=== PATIENT | female | born 1945 | race Caucasian/White ===

== ENCOUNTER 2018-01-29 23:49 | Emergency (ER) | payer OTHER, MEDICARE ==
--- OUTSIDE RECORDS SUMMARY | 2018-01-29 23:50 | XMS REPORT | Clinical Summary ---
:1945 Author Organization [facility] Address [address] [place] [address] Care Team Providers Name Role Phone Aramis Vivas MD Primary Care Provider Allergies Active Allergy Reactions Severity Noted Date Comments Corticosteroids (Glucocorticoids) 05/03/2016 Meperidine 05/03/2016 Morphine 05/03/2016 Quinolones 05/03/2016 Sulfamethoxazole 05/03/2016 Tramadol 05/03/2016 Current Medications Prescription Sig. Disp. Refills Start Date End Date Status HYDROcodone-acetaminophen 05/02/2016 Active (NORCO) 7.5-325 mg per tablet metoprolol tartrate (LOPRESSOR) TK 1 T PO D. 1 03/20/2016 Active 25 MG tablet Active Problems Not on file Family History Medical History Relation Name Comments Aortic aneurysm Father COPD Mother Relation Name Status Comments Father Mother Social History Tobacco Use Types Packs/Day Years Used Date Former Smoker Alcohol Use Drinks/Week oz/Week Comments No Sex Assigned at Date Recorded Not on file Last Filed Vital Signs Not on file Plan of Treatment Health Maintenance Due Date Last Done Comments COLONOSCOPY 1997 MAMMOGRAM 1997 SHINGRIX VACCINE (#1) 1997 ZOSTER VACCINE 2007 PNEUMOCOCCAL POLYSACCHARIDE VACCINE AGE 65 AND OVER 2012 PNEUMOCOCCAL-13 2012 INFLUENZA VACCINE 05/07/2018 Results Not on fileafter 01/28/2017 Insurance Payer Benefit Plan / Group Subscriber ID Type Phone Address MEDICARE MEDICARE PART A AND B xxxxxxxxxx Medicare [place], [place] AARP AARP SUPPLEMENT xxxxxxxxxxx Commercial Home: [address] [phone] [address] [id number] [address] [place] [address]
--- NOTE | 2018-01-30 01:28 | EDPHYS ---
Physician Documentation [facility] Name: Pooja Lawrence Age: 72 yrs Sex: Female : 1945 Arrival Date: 01/29/2018 Time: 23:52 Bed 14 Private MD: Aramis Vivas T ED Physician Mikal Govea HPI: 01/30 00:15 This 72 yrs old Female presents to ER via Ambulatory with complaints of Neck jr8 Injury. 00:15 The patient or guardian complains of pain. The symptoms are located at the C4, C5 and jr8 C6. Onset: The symptoms/episode began/occurred acutely, today. Context: The problem was sustained at home, The neck injury/problem resulted from a fall. Associated signs and symptoms: The patient has no apparent associated signs or symptoms. The pain does not radiate. Modifying factors: The symptoms are alleviated by nothing. the symptoms are aggravated by movement. Severity of symptoms: At their worst the symptoms were mild, in the emergency department the symptoms are unchanged. The patient has not experienced similar symptoms in the past. The patient has not recently seen a physician. Patient stated that she miss stepped and fell backwards hitting neck on side of couch. Stated that since then has had some pain to back of neck. History of cervical spine surgery for fracture in past. Wanted to make sure she did not hurt it again . Historical: - Allergies: 00:18 Ciprofloxacin (Respiratory distress); bs1 00:18 Demerol (Upset stomach); bs1 00:18 Morphine (Upset stomach); bs1 00:18 Sulfa (Sulfonamide Antibiotics) (Respiratory distress); bs1 00:18 Ultram; bs1 - Home Meds: 00:18 [place] Oral [Active]; Lipitor Oral [Active]; bs1 - PMHx: 00:18 Hypertension; mitral valve prolapse; scoliosis; bs1 - PSHx: 00:18 ; Hysterectomy; Appendectomy; Tonsillectomy; nerve damage left arm; back sx; bs1 - Immunization history:: Adult Immunizations up to date. - Social history:: Smoking status: Patient/guardian denies using tobacco. ROS: 00:15 Eyes: Negative for injury, pain, redness, and discharge, ENT: Negative for injury, jr8 pain, and discharge, Cardiovascular: Negative for chest pain, palpitations, and edema, Respiratory: Negative for shortness of breath, cough, wheezing, and pleuritic chest pain, Abdomen/GI: Negative for abdominal pain, nausea, vomiting, diarrhea, and constipation, Back: Negative for injury and pain, MS/Extremity: Negative for injury and deformity, Skin: Negative for injury, rash, and discoloration, Neuro: Negative for headache, weakness, numbness, tingling, and seizure. 00:15 Neck: Positive for pain with movement, pain at rest, tenderness, bony tenderness. Exam: 00:15 Eyes: Pupils equal round and reactive to light, extra-ocular motions intact. Lids and jr8 lashes normal. Conjunctiva and sclera are non-icteric and not injected. Cornea within normal limits. Periorbital areas with no swelling, redness, or edema. ENT: Nares patent. No nasal discharge, no septal abnormalities noted. Tympanic membranes are normal and external auditory canals are clear. Oropharynx with no redness, swelling, or masses, exudates, or evidence of obstruction, uvula midline. Mucous membranes moist. Cardiovascular: Regular rate and rhythm with a normal S1 and S2. No gallops, murmurs, or rubs. Normal PMI, no JVD. No pulse deficits. Respiratory: Lungs have equal breath sounds bilaterally, clear to auscultation and percussion. No rales, rhonchi or wheezes noted. No increased work of breathing, no retractions or nasal flaring. Abdomen/GI: Soft, non-tender, with normal bowel sounds. No distension or tympany. No guarding or rebound. No evidence of tenderness throughout. Back: No spinal tenderness. No costovertebral tenderness. Full range of motion. Skin: Warm, dry with normal turgor. Normal color with no rashes, no lesions, and no evidence of cellulitis. MS/ Extremity: Pulses equal, no cyanosis. Neurovascular intact. Full, normal range of motion. Neuro: Awake and alert, GCS 15, oriented to person, place, time, and situation. Cranial nerves II-XII grossly intact. Motor strength 5/5 in all extremities. Sensory grossly intact. Cerebellar exam normal. Normal gait. 00:15 Neck: External neck: tenderness, of the left mid cervical area, right mid cervical area, left trapezius, lower cervical area and right trapezius, C-spine: vertebral tenderness, is not appreciated, Thyroid: appears normal, Trachea: is midline with no obvious abnormalities, ROM/movement: pain, that is mild, with flexion, limited range of motion, is not appreciated, Lymph nodes: no appreciated lymphadenopathy. Vital Signs: 00:06 BP 147 / 86; Pulse 74; Resp 17; Temp 98.2(O); Pulse Ox 96% on R/A; Weight 57.61 kg; bs1 Height 5 ft. 5 in. (165.10 cm); Pain 7/10; 01:00 BP 118 / 67; Pulse 64; Resp 16; Temp 98.0(O); Pulse Ox 95% on R/A; Pain 4/10; bs1 00:06 Body Mass Index 21.13 (57.61 kg, 165.10 cm) bs1 MDM: 01/29 23:55 Patient medically screened. jr8 01/30 01:26 Data reviewed: vital signs, nurses notes, radiologic studies, CT scan, and as a result, jr8 I will discharge patient. Data interpreted: Pulse oximetry: on room air is 96 %. Interpretation: normal. Counseling: I had a detailed discussion with the patient and/or guardian regarding: the historical points, exam findings, and any diagnostic results supporting the discharge/admit diagnosis, radiology results, the need for outpatient follow up, a family practitioner, to return to the emergency department if symptoms worsen or persist or if there are any questions or concerns that arise at home. 01/30 00:10 Order name: CT C Spine jr8 Administered Medications: No medications were administered Disposition: 07:57 Co-signature as Attending Physician, Mikal Govea MD I agree with the assessment and nita plan of care. Disposition: 01/30/18 01:27 Discharged to Home. Impression: Sprain of ligaments of cervical spine. - Condition is Stable. - Discharge Instructions: Cervical Sprain. - Medication Reconciliation Form, Thank You Letter, Antibiotic Education, Prescription Opioid Use form. - Follow up: Aramis Vivas MD; When: 2 - 3 days; Reason: Recheck today's complaints, Continuance of care, Re-evaluation by your physician. - Problem is new. - Symptoms have improved. Signatures: Dispatcher [employer] EDMN Mikal Govea MD MD cha Roszak, Josh, PA PA jr8 Mckeon, Verna, RN RN bs1
--- NOTE | 2018-01-30 01:28 | ER ---
Nurse's Notes [facility] Name: Pooja Lawrence Age: 72 yrs Sex: Female : 1945 Arrival Date: 01/29/2018 Time: 23:52 Bed 14 Private MD: Aramis Vivas T Diagnosis: Sprain of ligaments of cervical spine Presentation: 01/30 00:06 Presenting complaint: Patient states: "I fell backwards and hit the back of my head on bs1 the sofa, from a standing position, I had neck surgery in September and its hurting." Patient denies any LOC, dizziness, blurry vision, headaches, nausea or vomiting. Care prior to arrival: None. Mechanism of Injury: Fall from standing position. approximately 1 feet. 00:06 Acuity: THOMAS 2 bs1 00:06 Method Of Arrival: Ambulatory bs1 00:12 Transition of care: patient was not received from another setting of care. Onset of bs1 symptoms was January 29, 2018 at 23:00. Initial Sepsis Screen: Does the patient meet any 2 criteria? No. Patient's initial sepsis screen is negative. Does the patient have a suspected source of infection? No. Patient's initial sepsis screen is negative. Trauma Activation: Not Applicable Physician: ED Physician; Name: ; Notified At: ; Arrived At: Physician: General Surgeon; Name: ; Notified At: ; Arrived At: Physician: Radiology; Name: ; Notified At: ; Arrived At: Physician: Respiratory; Name: ; Notified At: ; Arrived At: Physician: Lab; Name: ; Notified At: ; Arrived At: Historical: - Allergies: 00:18 Ciprofloxacin (Respiratory distress); bs1 00:18 Demerol (Upset stomach); bs1 00:18 Morphine (Upset stomach); bs1 00:18 Sulfa (Sulfonamide Antibiotics) (Respiratory distress); bs1 00:18 Ultram; bs1 - Home Meds: 00:18 [place] Oral [Active]; Lipitor Oral [Active]; bs1 - PMHx: 00:18 Hypertension; mitral valve prolapse; scoliosis; bs1 - PSHx: 00:18 ; Hysterectomy; Appendectomy; Tonsillectomy; nerve damage left arm; back sx; bs1 - Immunization history:: Adult Immunizations up to date. - Social history:: Smoking status: Patient/guardian denies using tobacco. Screenin:18 Abuse screen: Denies threats or abuse. Denies injuries from another. Nutritional bs1 screening: No deficits noted. Tuberculosis screening: No symptoms or risk factors identified. Fall Risk None identified. Assessment: 00:15 General: Appears in no apparent distress. uncomfortable, slender, Behavior is bs1 cooperative, anxious. Pain: Complains of pain in back of neck Pain does not radiate. Neuro: Level of Consciousness is awake, alert, obeys commands, Oriented to person, place, time, situation, Appropriate for age Architectural Designer are equal bilaterally Moves all extremities. Speech is normal, Facial symmetry appears normal, Pupils are PERRLA, Intact. Cardiovascular: Denies chest pain, lightheadedness, palpitations, shortness of breath, syncope, vomiting, Heart tones S1 S2 present Capillary refill < 3 seconds Patient's skin is warm and dry. Respiratory: Airway is patent Trachea midline Respiratory effort is even, unlabored, Respiratory pattern is regular, symmetrical, Breath sounds are clear bilaterally. GI: No deficits noted. No signs and/or symptoms were reported involving the gastrointestinal system. : No deficits noted. No signs and/or symptoms were reported regarding the genitourinary system. EENT: No deficits noted. No signs and/or symptoms were reported regarding the EENT system. Derm: Skin is intact, Skin is pink, warm \\T\\ dry. Musculoskeletal: Circulation, motion, and sensation intact. Capillary refill < 3 seconds, Range of motion: intact in all extremities, Tenderness present in back of neck Reports pain in back of neck. Injury Description: Patient reports taking a few steps backwards and tripping, fell from a standing position and hit the back of her head on the sofa, patient denies any LOC. 01:30 Reassessment: Patient appears in no apparent distress at this time. Patient and/or bs1 family updated on plan of care and expected duration. Pain level reassessed. Patient is alert, oriented x 3, equal unlabored respirations, skin warm/dry/pink. Patient states feeling better. Vital Signs: 00:06 BP 147 / 86; Pulse 74; Resp 17; Temp 98.2(O); Pulse Ox 96% on R/A; Weight 57.61 kg; bs1 Height 5 ft. 5 in. (165.10 cm); Pain 7/10; 01:00 BP 118 / 67; Pulse 64; Resp 16; Temp 98.0(O); Pulse Ox 95% on R/A; Pain 4/10; bs1 00:06 Body Mass Index 21.13 (57.61 kg, 165.10 cm) bs1 ED Course: 01/29 23:52 Patient arrived in ED. es 23:52 Aramis Vivas MD is Private Physician. es 23:55 [facility] Milton [facility] jr8 23:55 Mikal Govea MD is Attending Physician. jr8 01/30 00:12 Triage completed. bs1 00:19 Patient has correct armband on for positive identification. Placed in gown. Bed in low bs1 position. Call light in reach. Side rails up X 1. Adult w/ patient. Pulse ox on. NIBP on. Warm blanket given. 00:20 Arm band placed on left wrist. bs1 00:58 Verna Mckeon, JUDSON is Primary Nurse. bs1 01:04 CT C Spine In Process Unspecified. EDMS 01:26 Aramis Vivas MD is Referral Physician. jr8 01:44 No provider procedures requiring assistance completed. Patient did not have IV access bs1 during this emergency room visit. Administered Medications: No medications were administered Outcome: 01:27 Discharge ordered by . jr8 01:45 Discharged to home ambulatory, with significant other. bs1 01:45 Condition: stable 01:45 Discharge instructions given to patient, Instructed on discharge instructions, follow up and referral plans. Demonstrated understanding of instructions, follow-up care. 01:46 Patient left the ED. bs1 Signatures: Dispatcher [employer] EDMarilyn Kaur Josh, PA PA jrVerna [place], RN RN bs1
[2018-01-30 02:11] VITALS: BP 118/67; TEMP 98; O2SAT 95
--- NOTE | 2018-01-30 08:58 | RAD REPORT ---
EXAM DESCRIPTION: CT - C Spine Wo Con - 01/30/2018 6:45 am CLINICAL HISTORY: Trauma, neck injury. COMPARISON: 09/06/2017, 03/06/2017 TECHNIQUE: Axial 2 mm thick images of the cervical spine were obtained with sagittal and coronal rec onstruction images generated and reviewed. All CT scans are performed using dose optimization technique as appropriate and may include automated exposure control or mA/KV adjustment according to patient size. FINDINGS: Changes of ACDF span C4-6. No acute fracture or subluxation is seen. Multilevel degenerati ve spondylosis is present. The prevertebral soft tissues are normal in thickness. Upper lung smith are mildly emphysematous. IMPRESSION: No acute cervical spine finding.
== END 2018-01-30 01:46 | disposition home or self-care (01) ==
LOC: ER 23:49
DX: S13.4XXA Sprain of ligaments of cervical spine, initial encounter (principal); W18.39XA Other fall on same level, initial encounter; Y93.89 Activity, other specified; Y92.009 Unspecified place in unspecified non-institutional (private) residence as the place of occurrence of the external cause; I10 Essential (primary) hypertension; Z88.1 Allergy status to other antibiotic agents; Z88.2 Allergy status to sulfonamides; Z88.5 Allergy status to narcotic agent
CPT/HCPCS: 72125; 99283

== ENCOUNTER 2018-12-16 01:38 | Emergency (ER) | payer OTHER, MEDICARE ==
--- OUTSIDE RECORDS SUMMARY | 2018-12-16 01:39 | XMS REPORT | Clinical Summary ---
:[address] [facility] Address [address] [place] [address] Care Team Providers Name Role Phone Aramis Vivas MD Primary Care Provider Allergies Active Allergy Reactions Severity Noted Date Comments Corticosteroids (Glucocorticoids) 05/03/2016 Meperidine 05/03/2016 Morphine 05/03/2016 Quinolones 05/03/2016 Sulfamethoxazole 05/03/2016 Tramadol 05/03/2016 Medications Medication Sig Dispensed Refills Start Date End Date Status HYDROcodone-acetaminophen 0 05/02/2016 Active (NORCO) 7.5-325 mg per tablet metoprolol tartrate TK 1 T PO D. 1 03/20/2016 Active (LOPRESSOR) 25 MG tablet Active Problems Not on file Family History Medical History Relation Name Comments Aortic aneurysm Father COPD Mother Relation Name Status Comments Father Mother Social History Tobacco Use Types Packs/Day Years Used Date Former Smoker Alcohol Use Drinks/Week oz/Week Comments No Sex Assigned at Date Recorded Not on file Job Start Date Occupation Industry Not on file Not on file Not on file Travel History Travel Start Travel End No recent travel history available. Last Filed Vital Signs Not on file Plan of Treatment Health Maintenance Due Date Last Done Comments BREAST CANCER SCREENING 1997 COLON CANCER SCREENING 1997 SHINGLES VACCINES (#1) 1997 65+ PNEUMOCOCCAL VACCINE (1 of 2 - PCV13) 2012 PNEUMOCOCCAL POLYSACCHARIDE VACCINE AGE 65 AND OVER 2012 INFLUENZA VACCINE 05/07/2018 Results Not on fileafter 12/15/2017 Insurance Payer Benefit Plan / Group Subscriber ID Type Phone Address MEDICARE MEDICARE PART A AND B xxxxxxxxxx Medicare [place], [place] AARP AARP SUPPLEMENT xxxxxxxxxxx [place] [address] Advance Directives Patient has advance care planning documents on file. For more information, please contact:Vinod [id number] [place] [address]
[2018-12-16 03:34] LABS: Urine Blood NEGATIVE (NEG); Urine Glucose NEGATIVE (NEG); Urine Protein NEGATIVE (NEG); Urine Specific Gravity 1.015 (1.005-1.030)
[2018-12-16] MEDS ORDERED: NA CHLORIDE 0.9% 1,000 ML ONE (03:53)
[2018-12-16] MEDS ORDERED: ACETAMINOPHEN 500 MG TAB ONE (03:53)
[2018-12-16 04:26] LABS: Absolute Lymphocytes (CBC) 1.9 K/uL (0.7-4.9); Absolute Monocytes 0.6 K/uL (0.1-1.3); Absolute Neutrophil 2.4 K/uL (1.8-8.0); Basophils % 2.7 % (0-1.3); Eosinophils % 6.1 % (0-4.4); Hematocrit 43.2 % (36.0-45.0); Lymphocytes % 35.4 % (15.3-44.8); MPV 8.4 fL (7.6-11.3); Monocytes % 10.4 % (3.3-12.3); RBC Red Blood Cell Count 4.97 M/uL (3.86-4.86)
[2018-12-16 04:33] LABS: ALT/SGPT 16 U/L (12-78); AST/SGOT 18 U/L (15-37); Albumin 3.9 g/dL (3.4-5.0); Alkaline Phosphatase 69 U/L (45-117); BUN Blood Urea Nitrogen 7 mg/dL (7-18); Bicarbonate 31 mmol/L (21-32); Bilirubin Direct 0.2 mg/dL (0-0.2); Bilirubin Total 0.7 mg/dL (0.2-1.0); Glucose Level 92 mg/dL (74-106); Potassium 4.3 mmol/L (3.5-5.1); Protein, Total 7.3 g/dL (6.4-8.2); Sodium Level 146 mmol/L (136-145)
[2018-12-16 05:28] LABS: Urine Bacteria <20 /HPF (<20); Urine Culture Reflex Order NOT NEEDED; Urine RBC <5 /HPF (NONE SEEN)
--- NOTE | 2018-12-16 06:17 | ER ---
Nurse's Notes [facility] Name: Pooja Lawrence Age: 73 yrs Sex: Female : 1945 Arrival Date: 12/16/2018 Time: 01:39 Bed 28 Private MD: Aramis Vivas T Diagnosis: Headache Presentation: 12/16 01:51 Presenting complaint: Patient states: Reports she has been having a headache for 3 ea days, states "It feels like something bursting". Reports head hurts at the top of her head. Reports she has been having a lot of stress recently. Transition of care: patient was not received from another setting of care. Onset of symptoms was December 16, 2018. Risk Assessment: Do you want to hurt yourself or someone else? Patient reports no desire to harm self or others. Initial Sepsis Screen: Does the patient meet any 2 criteria? No. Patient's initial sepsis screen is negative. Does the patient have a suspected source of infection? No. Patient's initial sepsis screen is negative. Care prior to arrival: None. 01:51 Method Of Arrival: Ambulatory ea 01:51 Acuity: THOMAS 3 ea Triage Assessment: 01:55 Headache History: Denies prior headaches. ea 01:56 General: Appears in no apparent distress. Behavior is appropriate for age. Pain: ea Complains of pain in left frontal area and right frontal area Pain does not radiate. Pain currently is 7 out of 10 on a pain scale. Pain began 2-3 days ago. Also complains of no other associated symptoms. Neuro: Level of Consciousness is awake, alert, obeys commands, Oriented to person, place, time, situation. Cardiovascular: Patient's skin is warm and dry. Respiratory: Airway is patent Respiratory effort is even, unlabored, Respiratory pattern is regular, symmetrical. Derm: Skin is pink, warm \\T\\ dry. Historical: - Allergies: 01:55 Ciprofloxacin (Respiratory distress); ea 01:55 Demerol (Upset stomach); ea 01:55 Morphine (Upset stomach); ea 01:55 Sulfa (Sulfonamide Antibiotics) (Respiratory distress); ea 01:55 Ultram; ea - Home Meds: 01:55 [place] Oral [Active]; Metoprolol Tartrate Oral [Active]; Lipitor Oral [Active]; ea - PMHx: 01:55 Hypertension; mitral valve prolapse; scoliosis; ea - PSHx: 01:55 Hysterectomy; lower back surgery; Bladder suspension; ea - Immunization history:: Adult Immunizations up to date. - Social history:: Smoking status: Patient/guardian denies using tobacco. - Ebola Screening: : No symptoms or risks identified at this time. - Family history:: not pertinent. - Hospitalizations: : No recent hospitalization is reported. Screenin:53 Abuse screen: Denies threats or abuse. Nutritional screening: No deficits noted. ea Tuberculosis screening: No symptoms or risk factors identified. Fall Risk None identified. Assessment: 02:52 General: Appears in no apparent distress. Behavior is calm, cooperative, appropriate ea for age. Pain: Complains of pain in right frontal area and left frontal area. Neuro: Level of Consciousness is awake, alert, obeys commands, Oriented to person, place, time, situation. Cardiovascular: Patient's skin is warm and dry. Respiratory: Airway is patent Respiratory effort is even, unlabored, Respiratory pattern is regular, symmetrical. GI: No signs and/or symptoms were reported involving the gastrointestinal system. Derm: Skin is pink, warm \\T\\ dry. Musculoskeletal: Circulation, motion, and sensation intact. 03:50 Reassessment: Patient and/or family updated on plan of care and expected duration. Pain ea level reassessed. Patient is alert, oriented x 3, equal unlabored respirations, skin warm/dry/pink. 04:38 Reassessment: Patient and/or family updated on plan of care and expected duration. Pain ea level reassessed. Patient is alert, oriented x 3, equal unlabored respirations, skin warm/dry/pink. 05:02 Reassessment: Patient and/or family updated on plan of care and expected duration. Pain ea level reassessed. Patient is alert, oriented x 3, equal unlabored respirations, skin warm/dry/pink. 05:31 Reassessment: Patient and/or family updated on plan of care and expected duration. Pain ea level reassessed. Patient is alert, oriented x 3, equal unlabored respirations, skin warm/dry/pink. Pt taken to CT. 06:05 Reassessment: Patient and/or family updated on plan of care and expected duration. Pain ea level reassessed. Patient is alert, oriented x 3, equal unlabored respirations, skin warm/dry/pink. Pt returned from CT. 06:26 Reassessment: Patient and/or family updated on plan of care and expected duration. Pain ea level reassessed. Patient is alert, oriented x 3, equal unlabored respirations, skin warm/dry/pink. Discharge instructions given to patient, verbalized the understanding of instruction. Vital Signs: 01:58 BP 162 / 99; Pulse 86; Resp 16; Temp 98.4; Pulse Ox 95% on R/A; Weight 52.16 kg; Height ea 5 ft. 5 in. (165.10 cm); Pain 7/10; 03:50 BP 147 / 70; Pulse 80; Resp 18; Pulse Ox 100% on R/A; ea 04:00 BP 175 / 90; Pulse 80; Resp 18; Pulse Ox 100% on R/A; ea 05:00 BP 127 / 67; Pulse 62; Resp 18; Pulse Ox 97% ; ea 06:15 BP 122 / 54; Pulse 59; Resp 18; Pulse Ox 98% on R/A; Pain 3/10; ea 01:58 Body Mass Index 19.14 (52.16 kg, 165.10 cm) ea ED Course: 01:39 Patient arrived in ED. am2 01:39 Aramis Vivas MD is Private Physician. am2 01:54 Triage completed. ea 01:59 Arm band placed on right wrist. Patient placed in waiting room. ea 02:51 Kavita Nicole, RN is Primary Nurse. ea 02:53 Patient has correct armband on for positive identification. Bed in low position. Call ea light in reach. Side rails up X 1. 02:55 Lv Martinez MD is Attending Physician. wa 03:55 Inserted saline lock: 20 gauge in right antecubital area, using aseptic technique. ea Blood collected. 05:[address] Wo Cont CT In Process Unspecified. EDMS 06:16 Bud Maldonado MD is Referral Physician. wa 06:20 No provider procedures requiring assistance completed. IV discontinued, intact, ea bleeding controlled, No redness/swelling at site. Pressure dressing applied. Administered Medications: 04:07 Drug: Tylenol 1000 mg Route: PO; ea 05:04 Follow up: Response: No adverse reaction ea 04:07 Drug: NS 0.9% 1000 ml Route: IV; Rate: 1 bolus; Site: right antecubital; ea 05:04 Follow up: Response: No adverse reaction; IV Status: Completed infusion; IV Intake: ea 1000ml Intake: 05:04 IV: 1000ml; Total: 1000ml. franklin Outcome: 06:17 Discharge ordered by . ac 06:26 Discharged to home ambulatory. franklin 06:26 Condition: improved 06:26 Discharge instructions given to patient, Instructed on discharge instructions, follow up and referral plans. Demonstrated understanding of instructions, follow-up care. 06:28 Patient left the ED. ea Signatures: Dispatcher [employer] Farnaz Hester Elena, JUDSON RN Lv Lomeli MD MD wa
--- NOTE | 2018-12-16 06:17 | EDPHYS ---
Physician Documentation [facility] Name: Pooja Lawrence Age: 73 yrs Sex: Female : 1945 Arrival Date: 12/16/2018 Time: 01:39 Bed 28 Private MD: Aramis Vivas T ED Physician Lv Martinez HPI: 12/16 07:18 This 73 yrs old Female presents to ER via Ambulatory with complaints of wa Headache, Doesn't Feel Right. 07:18 The patient complains of pain to the right frontal area. The patient describes the wa headache as aching. Onset: The symptoms/episode began/occurred 3 day(s) ago. Associated signs and symptoms: The patient has no apparent associated signs or symptoms. Severity of symptoms: At its worst the pain was moderate, in the emergency department the pain is unchanged. Headache History: Denies prior headaches. The symptoms are alleviated by nothing. the symptoms are aggravated by nothing. The patient has not experienced similar symptoms in the past. The patient has not recently seen a physician. Historical: - Allergies: 01:55 Ciprofloxacin (Respiratory distress); ea 01:55 Demerol (Upset stomach); ea 01:55 Morphine (Upset stomach); ea 01:55 Sulfa (Sulfonamide Antibiotics) (Respiratory distress); ea 01:55 Ultram; ea - Home Meds: 01:55 [place] Oral [Active]; Metoprolol Tartrate Oral [Active]; Lipitor Oral [Active]; ea - PMHx: 01:55 Hypertension; mitral valve prolapse; scoliosis; ea - PSHx: 01:55 Hysterectomy; lower back surgery; Bladder suspension; ea - Immunization history:: Adult Immunizations up to date. - Social history:: Smoking status: Patient/guardian denies using tobacco. - Ebola Screening: : No symptoms or risks identified at this time. - Family history:: not pertinent. - Hospitalizations: : No recent hospitalization is reported. ROS: 07:19 Constitutional: Negative for fever, chills, and weight loss, Eyes: Negative for injury, wa pain, redness, and discharge, ENT: Negative for injury, pain, and discharge, Neck: Negative for injury, pain, and swelling, Cardiovascular: Negative for chest pain, palpitations, and edema, Respiratory: Negative for shortness of breath, cough, wheezing, and pleuritic chest pain, Abdomen/GI: Negative for abdominal pain, nausea, vomiting, diarrhea, and constipation, Back: Negative for injury and pain, : Negative for injury, bleeding, discharge, and swelling, MS/Extremity: Negative for injury and deformity, Skin: Negative for injury, rash, and discoloration. 07:19 Neuro: Positive for headache, Negative for altered mental status, dizziness. 07:19 All other systems are negative. Exam: 07:19 Constitutional: This is a well developed, well nourished patient who is awake, alert, wa and in no acute distress. Head/Face: Normocephalic, atraumatic. Eyes: Pupils equal round and reactive to light, extra-ocular motions intact. Lids and lashes normal. Conjunctiva and sclera are non-icteric and not injected. Cornea within normal limits. Periorbital areas with no swelling, redness, or edema. ENT: Nares patent. No nasal discharge, no septal abnormalities noted. Tympanic membranes are normal and external auditory canals are clear. Oropharynx with no redness, swelling, or masses, exudates, or evidence of obstruction, uvula midline. Mucous membranes moist. Neck: Trachea midline, no thyromegaly or masses palpated, and no cervical lymphadenopathy. Supple, full range of motion without nuchal rigidity, or vertebral point tenderness. No Meningismus. Chest/axilla: Normal chest wall appearance and motion. Nontender with no deformity. No lesions are appreciated. Cardiovascular: Regular rate and rhythm with a normal S1 and S2. No gallops, murmurs, or rubs. Normal PMI, no JVD. No pulse deficits. Respiratory: Lungs have equal breath sounds bilaterally, clear to auscultation and percussion. No rales, rhonchi or wheezes noted. No increased work of breathing, no retractions or nasal flaring. Abdomen/GI: Soft, non-tender, with normal bowel sounds. No distension or tympany. No guarding or rebound. No evidence of tenderness throughout. Back: No spinal tenderness. No costovertebral tenderness. Full range of motion. Skin: Warm, dry with normal turgor. Normal color with no rashes, no lesions, and no evidence of cellulitis. MS/ Extremity: Pulses equal, no cyanosis. Neurovascular intact. Full, normal range of motion. Psych: Awake, alert, with orientation to person, place and time. Behavior, mood, and affect are within normal limits. 07:19 Neuro: Orientation: is normal, Mentation: is normal, Cranial nerves: grossly normal, Cerebellar function: is grossly normal, Motor: is normal, Gait: is steady. Vital Signs: 01:58 BP 162 / 99; Pulse 86; Resp 16; Temp 98.4; Pulse Ox 95% on R/A; Weight 52.16 kg; Height ea 5 ft. 5 in. (165.10 cm); Pain 7/10; 03:50 BP 147 / 70; Pulse 80; Resp 18; Pulse Ox 100% on R/A; ea 04:00 BP 175 / 90; Pulse 80; Resp 18; Pulse Ox 100% on R/A; ea 05:00 BP 127 / 67; Pulse 62; Resp 18; Pulse Ox 97% ; ea 06:15 BP 122 / 54; Pulse 59; Resp 18; Pulse Ox 98% on R/A; Pain 3/10; ea 01:58 Body Mass Index 19.14 (52.16 kg, 165.10 cm) ea MDM: 02:55 Patient medically screened. pa 07:[address]: [address] r/o acute process. treat pain. reassess. Data pa reviewed: vital signs, nurses notes. Test interpretation: by ED physician or midlevel provider: head CT: no acute process. Response to treatment: the patient's symptoms have markedly improved after treatment. 12/16 02:43 Order name: Urine Dipstick--Ancillary (enter results); Complete Time: 05:15 va 12/16 03:33 Order name: Urine Microscopic Only; Complete Time: 06:16 pa 12/16 03:34 Order name: Head Brain Wo Cont CT pa 12/16 03:34 Order name: Basic Metabolic Panel; Complete Time: 05:15 pa 12/16 03:34 Order name: CBC with Diff; Complete Time: 05:15 pa 12/16 03:34 Order name: Hepatic Function; Complete Time: 05:15 pa 12/16 03:34 Order name: IV Saline Lock; Complete Time: 04:07 pa 12/16 03:34 Order name: Labs collected and sent; Complete Time: 04:07 pa Administered Medications: 04:07 Drug: Tylenol 1000 mg Route: PO; ea 05:04 Follow up: Response: No adverse reaction ea 04:07 Drug: NS 0.9% 1000 ml Route: IV; Rate: 1 bolus; Site: right antecubital; ea 05:04 Follow up: Response: No adverse reaction; IV Status: Completed infusion; IV Intake: ea 1000ml Disposition: 12/16/18 06:17 Discharged to Home. Impression: Headache. - Condition is Stable. - Discharge Instructions: General Headache Without Cause. - Medication Reconciliation Form, Thank You Letter, Antibiotic Education, Prescription Opioid Use form. - Follow up: Bud Maldonado MD; When: 2 - 3 days; Reason: Recheck today's complaints. - Problem is new. - Symptoms have improved. - Notes: take tylenol for headache as needed. see the brain doctor for further evaluation as needed Signatures: Dispatcher [employer] EDKavita Robb RN RN ea Appiah, William, MD MD wa Corrections: (The following items were deleted from the chart) 06:28 06:17 12/16/2018 06:17 Discharged to Home. Impression: Headache. Condition is Stable. ea Forms are Medication Reconciliation Form, Thank You Letter, Antibiotic Education, Prescription Opioid Use. Follow up: Bud Maldonado; When: 2 - 3 days; Reason: Recheck today's complaints. Problem is new. Symptoms have improved. wa
[2018-12-16 06:43] VITALS: TEMP 98.4
[2018-12-16 06:48] VITALS: BP 122/54; O2SAT 98
--- NOTE | 2018-12-16 08:17 | RAD REPORT ---
EXAM DESCRIPTION: CT - Head Brain Wo Cont - 12/16/2018 5:54 am CLINICAL HISTORY: Headache Due to technical issues with the [employer] fluency system images are only now available for interpretation . COMPARISON: None. TECHNIQUE: Axial 5 mm thick images of the head were obtained without IV contrast. All CT scans are performed using dose optimization technique as appropriate and may include automated exposure control or mA/KV adjustment according to patient size. FINDINGS: No intracranial hemorrhage, mass, edema or shift of mid-line structures. No acute cortical based infarction. No cortical edema or sulcal effacement. Atrophy changes are minimal. There are chr onic ischemic changes in the cerebral white matter slightly more pronounced in the right frontal lobe . No abnormal extra-axial fluid collections. Ventricles are normal. Mastoid air cells and visualized portions of the paranasal sinuses are clear. No acute bony findings. IMPRESSION: No hemorrhage, mass or acute intracranial finding. Minimal atrophy and mild chronic ischemic changes are present. Chronic ischemic changes can mask nonhemorrhagic acute infarction. MR brain followup can be obtained if there is ongoing concern for acute ischemia.
== END 2018-12-16 06:28 | disposition home or self-care (01) ==
LOC: ER 01:38
DX: R51 Headache (principal); I10 Essential (primary) hypertension; Z88.1 Allergy status to other antibiotic agents; Z88.5 Allergy status to narcotic agent; Z88.2 Allergy status to sulfonamides
CPT/HCPCS: 85025; 80048; 36415; 80076; 70450; 96360; 99284; J7030; 81003; 81015

== ENCOUNTER 2019-02-02 22:12 | Emergency (ER) | payer OTHER, MEDICARE ==
--- OUTSIDE RECORDS SUMMARY | 2019-02-02 22:14 | XMS REPORT | Clinical Summary ---
:1945 Author Organization [facility] Address [address] [place] [address] Care Team Providers Name Role Phone Aramis [...] AGE 65 AND OVER 2012 INFLUENZA VACCINE 05/07/2019 Results Not on fileafter 02/01/2018 Insurance Payer Benefit Plan / Group Subscriber ID Type Phone Address MEDICARE MEDICARE PART A AND B xxxxxxxxxx Medicare [place], [place] AARP AARP SUPPLEMENT x[address] [address] Advance Directives Patient has advance care planning documents on file. For more information, please contact:Vinod [id number] [place] [address]
[2019-02-02 23:10] LABS: Absolute Lymphocytes (CBC) 1.4 K/uL (0.7-4.9); Absolute Monocytes 0.5 K/uL (0.1-1.3); Absolute Neutrophil 2.5 K/uL (1.8-8.0); Basophils % 1.2 % (0-1.3); Eosinophils % 5.1 % (0-4.4); Hematocrit 42.7 % (36.0-45.0); Lymphocytes % 29.7 % (15.3-44.8); MPV 8.8 fL (7.6-11.3); Monocytes % 10.8 % (3.3-12.3); RBC Red Blood Cell Count 4.92 M/uL (3.86-4.86)
[2019-02-02 23:32] LABS: ALT/SGPT 17 U/L (12-78); AST/SGOT 22 U/L (15-37); Albumin 3.7 g/dL (3.4-5.0); Alkaline Phosphatase 63 U/L (45-117); BUN Blood Urea Nitrogen 11 mg/dL (7-18); Bicarbonate 28 mmol/L (21-32); Bilirubin Direct < 0.1 mg/dL (0-0.2); Bilirubin Total 0.7 mg/dL (0.2-1.0); Glucose Level 99 mg/dL (74-106); Lipase 101 U/L (73-393); Potassium 4.5 mmol/L (3.5-5.1); Protein, Total 7.1 g/dL (6.4-8.2); Sodium Level 142 mmol/L (136-145)
[2019-02-03 00:03] LABS: Urine Glucose NEGATIVE (NEG); Urine Specific Gravity 1.025 (1.005-1.030)
[2019-02-03 00:04] LABS: Urine Blood NEGATIVE (NEG); Urine Protein NEGATIVE (NEG); Urine pH 5.5 (5.0-7.0)
[2019-02-03] MEDS ORDERED: KETOROLAC 30 MG/ML INJ ONE (01:06)
[2019-02-03] MEDS ORDERED: DICYCLOMINE HCL 20 MG/2 ML AMP IM ONE (01:46)
--- NOTE | 2019-02-03 02:03 | ER ---
Nurse's Notes [facility] Name: Pooja Lawrence Age: 73 yrs Sex: Female : 1945 Arrival Date: 02/02/2019 Time: 22:16 Bed 28 Private MD: Diagnosis: Abdominal tenderness;Constipation, unspecified Presentation: 02/02 22:20 Presenting complaint: Presenting complaint: Patient states: lower abdominal pain that lp1 began on January 05; States "it feels achy, almost like period cramps"; Has taken 2 rounds of antibiotics with no relief; Denies any vomiting, diarrhea, fever, constipation, urinary symptoms. 22:21 Transition of care: patient was not received from another setting of care. Onset of lp1 symptoms was February 02, 2019. Risk Assessment: Do you want to hurt yourself or someone else? Patient reports no desire to harm self or others. Initial Sepsis Screen: Does the patient meet any 2 criteria? No. Patient's initial sepsis screen is negative. Does the patient have a suspected source of infection? No. Patient's initial sepsis screen is negative. Care prior to arrival: None. 22:21 Method Of Arrival: Ambulatory lp1 22:21 Acuity: THOMAS 3 lp1 Historical: - Allergies: 22:27 Ciprofloxacin (Respiratory distress); lp1 22:27 Demerol (Upset stomach); lp1 22:27 Morphine (Upset stomach); lp1 22:27 Sulfa (Sulfonamide Antibiotics) (Respiratory distress); lp1 22:27 Ultram; lp1 - Home Meds: 22:27 [place] Oral nightly [Active]; Lipitor Oral [Active]; Metoprolol Tartrate Oral [Active]; lp1 - PMHx: 22:27 Hypertension; mitral valve prolapse; scoliosis; lp1 - PSHx: 22:27 hemorrhoidectomy; Hysterectomy; ; Tonsillectomy; Left arm surgery; back lp1 surgery; - Immunization history:: Adult Immunizations up to date. - Social history:: Smoking status: Patient/guardian denies using tobacco. - Ebola Screening: : No symptoms or risks identified at this time. Screenin:27 Abuse screen: Denies threats or abuse. Denies injuries from another. Nutritional lp1 screening: No deficits noted. Tuberculosis screening: No symptoms or risk factors identified. Fall Risk None identified. Assessment: 23:40 General: Appears in no apparent distress. comfortable, Behavior is calm, cooperative. mg2 Pain: Complains of pain in abdomen Pain does not radiate. Pain currently is 4 out of 10 on a pain scale. Quality of pain is described as crampy, Pain began gradually, Is intermittent. Neuro: Level of Consciousness is awake, alert, obeys commands, Oriented to person, place, time, situation. Cardiovascular: Capillary refill < 3 seconds Patient's skin is warm and dry. Respiratory: Airway is patent Respiratory effort is even, unlabored, Respiratory pattern is regular, symmetrical. GI: Reports lower abdominal pain, upper abdominal pain. : No signs and/or symptoms were reported regarding the genitourinary system. EENT: No signs and/or symptoms were reported regarding the EENT system. Derm: Skin is intact, is healthy with good turgor, Skin is pink, warm \\T\\ dry. normal. Musculoskeletal: Circulation, motion, and sensation intact. Capillary refill < 3 seconds. Vital Signs: 22:20 BP 135 / 91; Pulse 84; Resp 18; Temp 98.4(O); Pulse Ox 98% on R/A; Weight 52.62 kg (R); lp1 Height 5 ft. 5 in. (165.10 cm); Pain 8/10; 23:38 BP 136 / 68; Pulse 70; Resp 18; Pulse Ox 97% on R/A; mg2 02/03 00:51 BP 142 / 78; Pulse 66; Resp 18; Pulse Ox 97% on R/A; mg2 02:19 BP 143 / 79; Pulse 64; Resp 16; Pulse Ox 98% ; rv 02/02 22:20 Body Mass Index 19.30 (52.62 kg, 165.10 cm) lp1 ED Course: 02/02 22:16 Patient arrived in ED. es 22:20 Arm band placed on right wrist. lp1 22:24 Triage completed. lp1 22:31 Dougie De La Rosa MD is Attending Physician. tw4 23:34 Alvaro Samayoa, JUDSON is Primary Nurse. mg2 23:41 Patient has correct armband on for positive identification. Pulse ox on. NIBP on. Door mg2 closed. Warm blanket given. 23:41 No provider procedures requiring assistance completed. Inserted saline lock: 20 gauge mg2 in right antecubital area, using aseptic technique. Blood collected. 02/03 02:19 IV discontinued, intact, bleeding controlled, No redness/swelling at site. Pressure rv dressing applied. Administered Medications: 00:55 Drug: TORadol 15 mg Route: IVP; Site: right antecubital; mg2 02:18 Follow up: Response: Pain is decreased rv 01:40 Drug: Bentyl 20 mg Route: IM; Site: right deltoid; rv 02:18 Follow up: Response: Marked relief of symptoms rv Outcome: 02:03 Discharge ordered by . christine 02:19 Discharged to home ambulatory. rv 02:19 Condition: good 02:19 Discharge instructions given to patient, Instructed on discharge instructions, follow up and referral plans. medication usage, Demonstrated understanding of instructions, follow-up care, medications, Prescriptions given X 1. 02:20 Patient left the ED. rv Signatures: Marilyn Smith Laura RN RN lp1 Dougie De La Rosa MD MD tw4 Alvaro Samayoa RN RN mg2 Grant Lopez, JUDSON RN rv Corrections: (The following items were deleted from the chart) 02/02 22:24 22:20 Presenting complaint: lp1 lp1 22:24 22:20 BP 135 / 91; Pulse 84bpm; Resp 18bpm; Pulse Ox 98% RA; Temp 98.4F Oral; lp1 lp1
--- NOTE | 2019-02-03 02:03 | EDPHYS ---
Physician Documentation [facility] Name: Pooja Lawrence Age: 73 yrs Sex: Female : 1945 Arrival Date: 02/02/2019 Time: 22:16 Bed 28 Private MD: ED Physician Dougie De La Rosa HPI: 02/03 06:38 This 73 yrs old Female presents to ER via Ambulatory with complaints of LOW tw4 ABD PAIN. 06:38 The patient presents with abdominal pain in the lower abdomen. Onset: The tw4 symptoms/episode began/occurred 1 month(s) ago. The symptoms do not radiate. Associated signs and symptoms: none. The symptoms are described as dull. Modifying factors: The symptoms are alleviated by nothing, the symptoms are aggravated by nothing. The patient has not experienced similar symptoms in the past. Historical: - Allergies: 02/02 22:27 Ciprofloxacin (Respiratory distress); lp1 22:27 Demerol (Upset stomach); lp1 22:27 Morphine (Upset stomach); lp1 22:27 Sulfa (Sulfonamide Antibiotics) (Respiratory distress); lp1 22:27 Ultram; lp1 - Home Meds: 22:27 [place] Oral nightly [Active]; Lipitor Oral [Active]; Metoprolol Tartrate Oral [Active]; lp1 - PMHx: 22:27 Hypertension; mitral valve prolapse; scoliosis; lp1 - PSHx: 22:27 hemorrhoidectomy; Hysterectomy; ; Tonsillectomy; Left arm surgery; back lp1 surgery; - Immunization history:: Adult Immunizations up to date. - Social history:: Smoking status: Patient/guardian denies using tobacco. - Ebola Screening: : No symptoms or risks identified at this time. ROS: 02/03 06:38 Constitutional: Negative for fever, chills, and weight loss, Eyes: Negative for injury, tw4 pain, redness, and discharge, Cardiovascular: Negative for chest pain, palpitations, and edema, Respiratory: Negative for shortness of breath, cough, wheezing, and pleuritic chest pain, Back: Negative for injury and pain, MS/Extremity: Negative for injury and deformity, Skin: Negative for injury, rash, and discoloration, Neuro: Negative for headache, weakness, numbness, tingling, and seizure. Abdomen/GI: Positive for abdominal pain, Negative for nausea and vomiting, nausea, vomiting, and diarrhea, nausea, vomiting, abdominal cramps, abdominal distension, anorexia. Exam: 06:38 Constitutional: This is a well developed, well nourished patient who is awake, alert, tw4 and in no acute distress. Head/Face: Normocephalic, atraumatic. Chest/axilla: Normal chest wall appearance and motion. Nontender with no deformity. No lesions are appreciated. Cardiovascular: Regular rate and rhythm with a normal S1 and S2. No gallops, murmurs, or rubs. Normal PMI, no JVD. No pulse deficits. Respiratory: Lungs have equal breath sounds bilaterally, clear to auscultation and percussion. No rales, rhonchi or wheezes noted. No increased work of breathing, no retractions or nasal flaring. Back: No spinal tenderness. No costovertebral tenderness. Full range of motion. Skin: Warm, dry with normal turgor. Normal color with no rashes, no lesions, and no evidence of cellulitis. 06:38 Abdomen/GI: Inspection: abdomen appears normal, Bowel sounds: normal, Palpation: mild abdominal tenderness, in the suprapubic area. Vital Signs: 02/02 22:20 BP 135 / 91; Pulse 84; Resp 18; Temp 98.4(O); Pulse Ox 98% on R/A; Weight 52.62 kg (R); lp1 Height 5 ft. 5 in. (165.10 cm); Pain 8/10; 23:38 BP 136 / 68; Pulse 70; Resp 18; Pulse Ox 97% on R/A; mg2 02/03 00:51 BP 142 / 78; Pulse 66; Resp 18; Pulse Ox 97% on R/A; mg2 02:19 BP 143 / 79; Pulse 64; Resp 16; Pulse Ox 98% ; rv 02/02 22:20 Body Mass Index 19.30 (52.62 kg, 165.10 cm) lp1 MDM: 02/02 22:35 Patient medically screened. tw4 02/03 06:38 Data reviewed: vital signs, nurses notes. Counseling: I had a detailed discussion with tw4 the patient and/or guardian regarding: the historical points, exam findings, and any diagnostic results supporting the discharge/admit diagnosis, the presence of at least one elevated blood pressure reading (>120/80) during this emergency department visit, lab results, radiology results. Special discussion: I discussed with the patient/guardian in detail that at this point there is no indication for admission to the hospital. It is understood, however, that if the symptoms persist or worsen the patient needs to return immediately for re-evaluation. ED course: Pt had recent CT scan of the abdomen that was negative. 02/02 22:37 Order name: Basic Metabolic Panel; Complete Time: 00:00 02/03 00:00 Interpretation: Normal except: CL 109; GFR 81. [facility] 02/02 22:37 Order name: CBC with Diff; Complete Time: 00:00 02/03 00:00 Interpretation: Normal except: RBC 4.92. [facility] 02/02 22:37 Order name: Creatinine for Radiology [facility] 02/02 22:37 Order name: Hepatic Function; Complete Time: 00:01 [facility] 02/03 00:01 Interpretation: Within normal limits. 02/02 22:37 Order name: Lipase; Complete Time: 00:01 02/03 00:01 Interpretation: Within normal limits: LIP 101. 02/02 23:40 Order name: Urine Dipstick--Ancillary (enter results) [facility] 02/02 22:37 Order name: IV Saline Lock; Complete Time: 23:34 02/02 22:37 Order name: Labs collected and sent; Complete Time: 23:34 [facility] 02/02 22:37 Order name: Urine Dipstick-Ancillary (obtain specimen); Complete Time: 23:34 Administered Medications: 00:55 Drug: TORadol 15 mg Route: IVP; Site: right antecubital; mg2 02:18 Follow up: Response: Pain is decreased rv 01:40 Drug: Bentyl 20 mg Route: IM; Site: right deltoid; rv 02:18 Follow up: Response: Marked relief of symptoms rv Disposition: 02/03/19 02:03 Discharged to Home. Impression: Abdominal tenderness, Constipation, unspecified. - Condition is Stable. - Discharge Instructions: Constipation, Adult, Abdominal Pain, Adult, [id number]. - Prescriptions for Bentyl 20 mg Oral Tablet - take 1 tablet by ORAL route every 6 hours As needed; 20 tablet. - Medication Reconciliation Form, Thank You Letter, Antibiotic Education, Prescription Opioid Use form. - Follow up: Private Physician; When: Upon discharge from the Emergency Department; Reason: If symptoms return, Recheck today's complaints, Continuance of care. - Problem is new. - Symptoms have improved. Signatures: Dispatcher [employer] [facility] Ruchi Ocampo RN RN lp1 Dougie De La Rosa MD MD tw4 Alvaro Samayoa RN RN mg2 Grant Lopez RN RN rv Corrections: (The following items were deleted from the chart) 02/02 23:51 22:37 Urine Test ordered. tw4 mg2 02/03 02:06 01:45 Abdomen Pelvis W Con+CT.RAD.BRZ ordered. [facility] 02:20 02:03 02/03/2019 02:03 Discharged to Home. Impression: Abdominal tenderness; rv Constipation, unspecified. Condition is Stable. Forms are Medication Reconciliation Form, Thank You Letter, Antibiotic Education, Prescription Opioid Use. Follow up: Private Physician; When: Upon discharge from the Emergency Department; Reason: If symptoms return, Recheck today's complaints, Continuance of care. Problem is new. Symptoms have improved. tw4
[2019-02-03 02:25] VITALS: TEMP 98.4
[2019-02-03 02:28] VITALS: BP 143/79; O2SAT 98
== END 2019-02-03 02:20 | disposition home or self-care (01) ==
LOC: ER 22:12
DX: K59.00 Constipation, unspecified (principal); I10 Essential (primary) hypertension; I34.1 Nonrheumatic mitral (valve) prolapse; Z88.1 Allergy status to other antibiotic agents; Z88.2 Allergy status to sulfonamides; Z88.5 Allergy status to narcotic agent
CPT/HCPCS: 85025; 80048; 36415; 80076; 81003; 83690; 96372; 96374; 99284; J0500

== ENCOUNTER 2019-05-14 17:23 | Emergency (ER) | payer OTHER, MEDICARE ==
--- OUTSIDE RECORDS SUMMARY | 2019-05-14 17:25 | XMS REPORT | Clinical Summary ---
:1945 Author Organization [facility] Address [address] [place] [address] Care Team Providers Name Role Phone Aramis [...] Last Done Comments BREAST CANCER SCREENING 1997 COLONOSCOPY SCREENING 1997 SHINGLES VACCINES (#1) 1997 65+ PNEUMOCOCCAL VACCINE (1 of 2 - PCV13) 2012 INFLUENZA VACCINE 05/07/2019 Results Not on fileafter 05/13/2018 Insurance Payer Benefit Plan / Subscriber ID Effective Dates Phone Address Type Group MEDICARE MEDICARE PART A xxxxxxxxxx 2005-Present [place], [place] Medicare AND B AARP AARP SUPPLEMENT xxxxxxxxxxx 2012-[place] [address] Advance Directives Patient has advance care planning documents on file. For more information, please contact:Vinod [id number] [place] [address]
[2019-05-14] MEDS ORDERED: HYDROCODONE/APAP 5/325 MG TAB ONE (18:40)
[2019-05-14] MEDS ORDERED: ONDANSETRON 4 MG (ODT) TAB ONE (18:40)
--- NOTE | 2019-05-14 18:59 | ER ---
Nurse's Notes [facility] Name: Pooja Lawrence Age: 73 yrs Sex: Female : 1945 Arrival Date: 05/14/2019 Time: 17:30 Bed 23 Private MD: Aramis Vivas T Diagnosis: Rib Contusion Presentation: 05/14 17:51 Presenting complaint: Patient states: Was turning and tripped and fell over a step ph stool, c/o pain to R posterior ribs, denies SOB, also denies other injury or blood thinner use. Transition of care: patient was not received from another setting of care. Complicating Factors: There are no complicating factors for this patient. Onset of symptoms was May 14, 2019. Risk Assessment: Do you want to hurt yourself or someone else? Patient reports no desire to harm self or others. Initial Sepsis Screen: Does the patient meet any 2 criteria? No. Patient's initial sepsis screen is negative. Does the patient have a suspected source of infection? No. Patient's initial sepsis screen is negative. Care prior to arrival: None. 17:51 Method Of Arrival: Ambulatory ph 17:51 Acuity: THOMAS 4 ph Historical: - Allergies: 17:54 Ciprofloxacin (Respiratory distress); ph 17:54 Demerol (Upset stomach); ph 17:54 Morphine (Upset stomach); ph 17:54 Sulfa (Sulfonamide Antibiotics) (Respiratory distress); ph 17:54 Ultram; ph - Home Meds: 17:54 Lipitor Oral [Active]; Metoprolol Tartrate Oral [Active]; [place] Oral nightly [Active]; ph - PMHx: 17:54 Hypertension; mitral valve prolapse; scoliosis; ph - PSHx: 17:54 hemorrhoidectomy; Hysterectomy; ; Tonsillectomy; Left arm surgery; back ph surgery; - Immunization history:: Adult Immunizations unknown. - Social history:: Smoking status: Patient/guardian denies using tobacco. - Ebola Screening: : No symptoms or risks identified at this time. Screenin:03 Abuse screen: Denies threats or abuse. Denies injuries from another. Nutritional ca1 screening: No deficits noted. Tuberculosis screening: No symptoms or risk factors identified. Fall Risk Fall in past 12 months (25 points). Assessment: 18:03 General: Appears in no apparent distress. uncomfortable, Behavior is calm, cooperative, ca1 appropriate for age. Pain: Complains of pain in R ribcage area Pain currently is 10 out of 10 on a pain scale. Also complains of nausea. Neuro: Level of Consciousness is awake, alert, obeys commands, Oriented to person, place, time, situation. Cardiovascular: Heart tones S1 S2 present Capillary refill < 3 seconds Patient's skin is warm and dry. Pulses are all present. Respiratory: Airway is patent Respiratory effort is even, unlabored, Respiratory pattern is regular, symmetrical, Breath sounds are clear bilaterally. GI: Abdomen is flat, non-distended, Bowel sounds present X 4 quads. Abd is soft and non tender X 4 quads. Reports nausea. : No deficits noted. No signs and/or symptoms were reported regarding the genitourinary system. EENT: No deficits noted. No signs and/or symptoms were reported regarding the EENT system. Derm: Skin is fragile, is thin, Skin is pink, warm \T\ dry. Musculoskeletal: Circulation, motion, and sensation intact. Capillary refill < 3 seconds, Range of motion: intact in all extremities. Injury Description: Laceration sustained to left arm is clean, superficial, 2.6 to 7.5 cm long, was sustained 30-60 minutes ago. is bleeding no active bleeding noted. 18:48 Reassessment: Patient appears in no apparent distress at this time. Patient and/or ca1 family updated on plan of care and expected duration. Pain level reassessed. Patient is alert, oriented x 3, equal unlabored respirations, skin warm/dry/pink. 19:33 Reassessment: Patient appears in no apparent distress at this time. Patient and/or ca1 family updated on plan of care and expected duration. Pain level reassessed. Patient is alert, oriented x 3, equal unlabored respirations, skin warm/dry/pink. Vital Signs: 17:54 BP 146 / 74; Pulse 90; Resp 18; Temp 97.8; Pulse Ox 99% on R/A; ph 18:03 Weight 49.9 kg (R); Height 5 ft. 5 in. (165.10 cm) (R); Pain 10/10; ca1 18:48 BP 139 / 78; Pulse 79; Resp 16 S; Pulse Ox 98% on R/A; ca1 19:36 BP 134 / 82; Pulse 70; Resp 16 S; Pulse Ox 99% on R/A; ca1 18:03 Body Mass Index 18.30 (49.90 kg, 165.10 cm) ca1 ED Course: 17:30 Patient arrived in ED. mr 17:30 Aramis Vivas MD is Private Physician. mr 17:53 Triage completed. ph 17:55 Marisel Kendall, RN is Primary Nurse. ca1 17:55 Arm band placed on. ph 18:03 Patient has correct armband on for positive identification. Bed in low position. Call ca1 light in reach. Side rails up X 1. Pulse ox on. NIBP on. Warm blanket given. 18:05 Chaz Milton PA is PHCP. jr8 18:05 Manuel Huff MD is Attending Physician. jr8 18:31 XRAY Ribs RIGHT In Process Unspecified. EDMS 19:34 Assist provider with laceration repair on left arm that was between 7.6 to 12.5 cm ca1 using Steri-strips. Set up tray. Performed by Marisel Kendall RN Dressed with Non-Adherent dressing, antony wrap applied Patient tolerated well. Patient did not have IV access during this emergency room visit. 19:37 Wound care: to laceration located on left arm was cleaned with Hibiclens, Patient ca1 tolerated well. Administered Medications: 18:40 Drug: Zofran 4 mg Route: PO; ca1 19:01 Follow up: Response: No adverse reaction; Nausea is decreased ca1 18:57 Not Given (Pt is driving herself home): [place] 5 mg-325 mg 1 tabs PO once; RASS on ca1 ADMIN: Combtv4, Very Agttd3, Agttd2, Rstlss1, AlertClm0, Drwsy-1, Lt Sdtn-2, Mod Sdtn-3, Dp Sdtn-4, UnArsble-5 19:33 CANCELLED (Wrong Order): morphine 1 mg IVP once; RASS on ADMIN: Combtv4, Very Agttd3, ca1 Agttd2, Rstlss1, AlertClm0, Drwsy-1, Lt Sdtn-2, Mod Sdtn-3, Dp Sdtn-4, UnArsble-5 Outcome: 18:58 Discharge ordered by MD. crump 19:36 Discharged to home ambulatory. ca1 19:36 Condition: stable 19:36 Discharge instructions given to patient, Instructed on discharge instructions, follow up and referral plans. wound care, Demonstrated understanding of instructions, follow-up care, wound care. 19:38 Patient left the ED. ca1 Signatures: Dispatcher [employer] EDFL Yoselin Castañeda, Chaz, TANYA MARTÍNEZ jr8 More Cobb RN RN Marisel Kendall RN RN ca1 Corrections: (The following items were deleted from the chart) 18:08 18:03 GI: Abdomen is flat, non-distended, Bowel sounds present X 4 quads. Abd is soft ca1 and non tender X 4 quads. ca1 18:53 18:48 BP 121 / 78; Pulse 79bpm; Resp 16bpm; Spontaneous; Pulse Ox 98% RA; ca1 ca1 19:35 18:03 Injury Description: Laceration sustained to left arm is clean, superficial, 0.5 ca1 to 2.5 cm long, was sustained 30-60 minutes ago. is bleeding no active bleeding noted. ca1
--- NOTE | 2019-05-14 19:00 | EDPHYS ---
Physician Documentation [facility] Name: Pooja Lawrence Age: 73 yrs Sex: Female : 1945 Arrival Date: 05/14/2019 Time: 17:30 Bed 23 Private MD: Aramis Vivas T ED Physician Manuel Huff HPI: 05/14 18:40 This 73 yrs old Female presents to ER via Ambulatory with complaints of Rib jr8 injury, Laceration To Arm. 18:40 Details of fall: The patient fell from an upright position, while standing. Onset: The jr8 symptoms/episode began/occurred acutely, today. Associated injuries: The patient sustained injury to the chest, tenderness, left arm. Severity of symptoms: At their worst the symptoms were mild, in the emergency department the symptoms are unchanged. The patient has not experienced similar symptoms in the past. The patient has not recently seen a physician. Stated that she tripped over a stool landing on right ribs and catching left forearm causing skin tear to arm . Historical: - Allergies: 17:54 Ciprofloxacin (Respiratory distress); ph 17:54 Demerol (Upset stomach); ph 17:54 Morphine (Upset stomach); ph 17:54 Sulfa (Sulfonamide Antibiotics) (Respiratory distress); ph 17:54 Ultram; ph - Home Meds: 17:54 Lipitor Oral [Active]; Metoprolol Tartrate Oral [Active]; [place] Oral nightly [Active]; ph - PMHx: 17:54 Hypertension; mitral valve prolapse; scoliosis; ph - PSHx: 17:54 hemorrhoidectomy; Hysterectomy; ; Tonsillectomy; Left arm surgery; back ph surgery; - Immunization history:: Adult Immunizations unknown. - Social history:: Smoking status: Patient/guardian denies using tobacco. - Ebola Screening: : No symptoms or risks identified at this time. ROS: 18:40 Eyes: Negative for injury, pain, redness, and discharge, ENT: Negative for injury, jr8 pain, and discharge, Neck: Negative for injury, pain, and swelling, Respiratory: Negative for shortness of breath, cough, wheezing, and pleuritic chest pain, Abdomen/GI: Negative for abdominal pain, nausea, vomiting, diarrhea, and constipation, Back: Negative for injury and pain, MS/Extremity: Negative for injury and deformity, Neuro: Negative for headache, weakness, numbness, tingling, and seizure. 18:40 Cardiovascular: Positive for chest pain, of the right ribs. 18:40 Skin: Positive for avulsion. Exam: 18:40 Eyes: Pupils equal round and reactive to light, extra-ocular motions intact. Lids and jr8 lashes normal. Conjunctiva and sclera are non-icteric and not injected. Cornea within normal limits. Periorbital areas with no swelling, redness, or edema. ENT: Nares patent. No nasal discharge, no septal abnormalities noted. Tympanic membranes are normal and external auditory canals are clear. Oropharynx with no redness, swelling, or masses, exudates, or evidence of obstruction, uvula midline. Mucous membranes moist. Neck: Trachea midline, no thyromegaly or masses palpated, and no cervical lymphadenopathy. Supple, full range of motion without nuchal rigidity, or vertebral point tenderness. No Meningismus. Cardiovascular: Regular rate and rhythm with a normal S1 and S2. No gallops, murmurs, or rubs. Normal PMI, no JVD. No pulse deficits. Respiratory: Lungs have equal breath sounds bilaterally, clear to auscultation and percussion. No rales, rhonchi or wheezes noted. No increased work of breathing, no retractions or nasal flaring. Abdomen/GI: Soft, non-tender, with normal bowel sounds. No distension or tympany. No guarding or rebound. No evidence of tenderness throughout. Back: No spinal tenderness. No costovertebral tenderness. Full range of motion. Skin: Warm, dry with normal turgor. Normal color with no rashes, no lesions, and no evidence of cellulitis. skin tear present to lateral left forearm MS/ Extremity: Pulses equal, no cyanosis. Neurovascular intact. Full, normal range of motion. Neuro: Awake and alert, GCS 15, oriented to person, place, time, and situation. Cranial nerves II-XII grossly intact. Motor strength 5/5 in all extremities. Sensory grossly intact. Cerebellar exam normal. Normal gait. 18:40 Chest/axilla: Inspection: normal, Palpation: tenderness, that is moderate, of the right lateral anterior chest. Vital Signs: 17:54 BP 146 / 74; Pulse 90; Resp 18; Temp 97.8; Pulse Ox 99% on R/A; ph 18:03 Weight 49.9 kg (R); Height 5 ft. 5 in. (165.10 cm) (R); Pain 10/10; ca1 18:48 BP 139 / 78; Pulse 79; Resp 16 S; Pulse Ox 98% on R/A; ca1 19:36 BP 134 / 82; Pulse 70; Resp 16 S; Pulse Ox 99% on R/A; ca1 18:03 Body Mass Index 18.30 (49.90 kg, 165.10 cm) ca1 MDM: 18:13 Patient medically screened. jr8 18:57 Data reviewed: vital signs, nurses notes, radiologic studies, plain films, and as a jr8 result, I will discharge patient. Data interpreted: Pulse oximetry: on room air is 98 %. Interpretation: normal. Counseling: I had a detailed discussion with the patient and/or guardian regarding: the historical points, exam findings, and any diagnostic results supporting the discharge/admit diagnosis, radiology results, the need for outpatient follow up, a family practitioner, to return to the emergency department if symptoms worsen or persist or if there are any questions or concerns that arise at home. 05/14 18:14 Order name: XRAY Ribs RIGHT; Complete Time: 19:09 jr8 Administered Medications: 18:40 Drug: Zofran 4 mg Route: PO; ca1 19:01 Follow up: Response: No adverse reaction; Nausea is decreased ca1 18:57 Not Given (Pt is driving herself home): [place] 5 mg-325 mg 1 tabs PO once; RASS on ca1 ADMIN: Combtv4, Very Agttd3, Agttd2, Rstlss1, AlertClm0, Drwsy-1, Lt Sdtn-2, Mod Sdtn-3, Dp Sdtn-4, UnArsble-5 19:33 CANCELLED (Wrong Order): morphine 1 mg IVP once; RASS on ADMIN: Combtv4, Very Agttd3, ca1 Agttd2, Rstlss1, AlertClm0, Drwsy-1, Lt Sdtn-2, Mod Sdtn-3, Dp Sdtn-4, UnArsble-5 Disposition: 05/15 08:13 Co-signature as Attending Physician, Manuel Huff MD I agree with the assessment and kdr plan of care. Disposition: 05/14/19 18:58 Discharged to Home. Impression: Rib Contusion . - Condition is Stable. - Discharge Instructions: Rib Contusion. - Medication Reconciliation Form, Thank You Letter, Antibiotic Education, Prescription Opioid Use form. - Follow up: Private Physician; When: 2 - 3 days; Reason: Recheck today's complaints, Continuance of care, Re-evaluation by your physician. - Problem is new. - Symptoms have improved. Signatures: Dispatcher [employer] EDMS Manuel Huff MD MD [facility] Chaz Milton PA PA jr8 More Cobb RN RN ph AcMarisel davidson RN RN ca1 Corrections: (The following items were deleted from the chart) 05/14 19:33 19:32 morphine 1 mg IVP once; RASS on ADMIN: Combtv4, Very Agttd3, Agttd2, Rstlss1, ca1 AlertClm0, Drwsy-1, Lt Sdtn-2, Mod Sdtn-3, Dp Sdtn-4, UnArsble-5 ordered. ca1 19:38 18:58 05/14/2019 18:58 Discharged to Home. Impression: Rib Contusion . Condition is ca1 Stable. Forms are Medication Reconciliation Form, Thank You Letter, Antibiotic Education, Prescription Opioid Use. Follow up: Private Physician; When: 2 - 3 days; Reason: Recheck today's complaints, Continuance of care, Re-evaluation by your physician. Problem is new. Symptoms have improved. jr8
--- NOTE | 2019-05-14 19:07 | RAD REPORT ---
EXAM DESCRIPTION: Ribs Right - 05/14/2019 6:34 pm CLINICAL HISTORY: Trip and fall, posterior right rib pain COMPARISON: None. FINDINGS: Posterior right eleventh rib is fractured. No displacement. No other fracture confirmed. No aggressive rib lesion. No underlying pneumothorax, effusion, infiltrate or pulmonary contusion. IMPRESSION: Right posterior eleventh nondisplaced rib fracture.
[2019-05-14 19:55] VITALS: TEMP 97.8
[2019-05-14 19:59] VITALS: BP 134/82; O2SAT 99
== END 2019-05-14 19:38 | disposition home or self-care (01) ==
LOC: ER 17:23
DX: S41.112A Laceration without foreign body of left upper arm, initial encounter (principal); W01.198A Fall on same level from slipping, tripping and stumbling with subsequent striking against other object, initial encounter; Y93.89 Activity, other specified; Y92.9 Unspecified place or not applicable; I10 Essential (primary) hypertension; Z88.1 Allergy status to other antibiotic agents; Z88.2 Allergy status to sulfonamides; Z88.5 Allergy status to narcotic agent
CPT/HCPCS: 99284

== ENCOUNTER 2019-07-27 22:52 | Emergency (ER) | payer OTHER, MEDICARE ==
[2019-07-28 01:58] LABS: Absolute Lymphocytes (CBC) 1.3 K/uL (0.7-4.9); Basophils % 2.8 % (0-1.3); Hematocrit 40.3 % (36.0-45.0); Lymphocytes % 23.8 % (15.3-44.8); MPV 8.6 fL (7.6-11.3); Protime INR 1.07; RBC Red Blood Cell Count 4.65 M/uL (3.86-4.86)
[2019-07-28 02:09] LABS: ALT/SGPT 19 U/L (12-78); AST/SGOT 25 U/L (15-37); Albumin 3.8 g/dL (3.4-5.0); Alkaline Phosphatase 52 U/L (45-117); BUN Blood Urea Nitrogen 11 mg/dL (7-18); Bicarbonate 27 mmol/L (21-32); Bilirubin Direct 0.2 mg/dL (0-0.2); Bilirubin Total 0.8 mg/dL (0.2-1.0); Glucose Level 90 mg/dL (74-106); Lipase 97 U/L (73-393); Magnesium 2.3 mg/dL (1.8-2.4); NT PRO-BNP 122 pg/mL (<125); Potassium 3.8 mmol/L (3.5-5.1); Sodium Level 142 mmol/L (136-145); Troponin (Emerg Dept Use Only) < 0.02 ng/mL (0.0-0.045)
--- NOTE | 2019-07-28 02:23 | EDPHYS ---
Physician Documentation [facility] Name: Pooja Lawrence Age: 73 yrs Sex: Female : 1945 Arrival Date: 07/27/2019 Time: 23:07 Bed 8 Private MD: ED Physician Mikal Govea HPI: 07/28 01:00 This 73 yrs old Female presents to ER via Ambulatory with complaints of nita ABDOMINAL PAIN, STOOL VIA VAGINA. 01:00 The patient presents with abdominal pain in the lower abdomen, abdominal distention in nita the upper abdomen, in the lower abdomen. Onset: The symptoms/episode began/occurred 3 day(s) ago. The patient presents with STOOL VIA VAGINA. Onset: The symptoms/episode began/occurred 14 day(s) ago. Modifying factors: The symptoms are alleviated by nothing, the symptoms are aggravated by nothing. Associated signs and symptoms: The patient has no apparent associated signs or symptoms. Severity of symptoms: At their worst the symptoms were mild, moderate, in the emergency department the symptoms are unchanged. Historical: - Allergies: 07/27 23:31 Ciprofloxacin (Respiratory distress); ak1 23:31 Demerol (Upset stomach); ak1 23:31 Sulfa (Sulfonamide Antibiotics) (Respiratory distress); ak1 23:31 Ultram; ak1 23:31 Morphine (Upset stomach); ak1 - Home Meds: 23:31 [place] Oral nightly [Active]; ak1 - PMHx: 23:31 Hypertension; mitral valve prolapse; scoliosis; ak1 - PSHx: 23:31 hemorrhoidectomy; Hysterectomy; ; Tonsillectomy; back surgery; Left arm ak1 surgery; - Immunization history:: Adult Immunizations unknown. - Social history:: Smoking status: Patient/guardian denies using tobacco. - Ebola Screening: : No symptoms or risks identified at this time. - Family history:: not pertinent. ROS: 07/28 01:00 Constitutional: Negative for fever, chills, and weight loss, Eyes: Negative for injury, nita pain, redness, and discharge, ENT: Negative for injury, pain, and discharge, Neck: Negative for injury, pain, and swelling, Cardiovascular: Negative for chest pain, palpitations, and edema, Respiratory: Negative for shortness of breath, cough, wheezing, and pleuritic chest pain, Back: Negative for injury and pain, : Negative for injury, bleeding, discharge, and swelling, MS/Extremity: Negative for injury and deformity, Skin: Negative for injury, rash, and discoloration, Neuro: Negative for headache, weakness, numbness, tingling, and seizure, Psych: Negative for depression, anxiety, suicide ideation, homicidal ideation, and hallucinations, Allergy/Immunology: Negative for hives, rash, and allergies, Endocrine: Negative for neck swelling, polydipsia, polyuria, polyphagia, and marked weight changes, Hematologic/Lymphatic: Negative for swollen nodes, abnormal bleeding, and unusual bruising. Abdomen/GI: Positive for abdominal pain, of the right lower quadrant and left lower quadrant. Exam: 01:00 Constitutional: This is a well developed, well nourished patient who is awake, alert, nita and in no acute distress. Head/Face: Normocephalic, atraumatic. Eyes: Pupils equal round and reactive to light, extra-ocular motions intact. Lids and lashes normal. Conjunctiva and sclera are non-icteric and not injected. Cornea within normal limits. Periorbital areas with no swelling, redness, or edema. ENT: Nares patent. No nasal discharge, no septal abnormalities noted. Tympanic membranes are normal and external auditory canals are clear. Oropharynx with no redness, swelling, or masses, exudates, or evidence of obstruction, uvula midline. Mucous membranes moist. Neck: Trachea midline, no thyromegaly or masses palpated, and no cervical lymphadenopathy. Supple, full range of motion without nuchal rigidity, or vertebral point tenderness. No Meningismus. Chest/axilla: Normal chest wall appearance and motion. Nontender with no deformity. No lesions are appreciated. Cardiovascular: Regular rate and rhythm with a normal S1 and S2. No gallops, murmurs, or rubs. Normal PMI, no JVD. No pulse deficits. Respiratory: Lungs have equal breath sounds bilaterally, clear to auscultation and percussion. No rales, rhonchi or wheezes noted. No increased work of breathing, no retractions or nasal flaring. Back: No spinal tenderness. No costovertebral tenderness. Full range of motion. Female : Normal external genitalia. Skin: Warm, dry with normal turgor. Normal color with no rashes, no lesions, and no evidence of cellulitis. MS/ Extremity: Pulses equal, no cyanosis. Neurovascular intact. Full, normal range of motion. Neuro: Awake and alert, GCS 15, oriented to person, place, time, and situation. Cranial nerves II-XII grossly intact. Motor strength 5/5 in all extremities. Sensory grossly intact. Cerebellar exam normal. Normal gait. Psych: Awake, alert, with orientation to person, place and time. Behavior, mood, and affect are within normal limits. 01:00 Abdomen/GI: Inspection: abdomen appears normal, Bowel sounds: normal, Palpation: mild abdominal tenderness, in the suprapubic area, right lower quadrant and left lower quadrant, Liver: no appreciated palpable abnormalities, Hernia: not appreciated. 02:24 Abdomen/GI: Rectal exam: is unremarkable, rectal tone normal, Stool: normal, nita hemorrhoid(s), are not appreciated, mass, is not appreciated, swelling, is not appreciated, tenderness, is not appreciated. 02:24 : Pelvic Exam: External exam: purulent discharge, Bladder: is normal, Rectal exam: is normal, Sexual behavior: the patient is not sexually active. Vital Signs: 07/27 23:28 BP 128 / 70; Pulse 69; Resp 16; Temp 97.6; Pulse Ox 99% on R/A; Weight 48.08 kg (R); ak1 Height 5 ft. 5 in. (165.10 cm) (R); Pain 6/10; 07/28 00:30 BP 130 / 90; Pulse 57; Resp 18; Pulse Ox 100% on R/A; wh 02:00 BP 102 / 63; Pulse 59; Resp 18; Pulse Ox 96% ; 07/27 23:28 Body Mass Index 17.64 (48.08 kg, 165.10 cm) ak1 MDM: 07/27 23:59 Patient medically screened. [facility] 07/28 01:03 Data reviewed: vital signs, nurses notes, lab test result(s), EKG, radiologic studies, [facility] CT scan, plain films. 07/28 01:00 Order name: Basic Metabolic Panel; Complete Time: 02:19 [facility] 07/28 01:00 Order name: CBC with Diff; Complete Time: 02:05 [facility] 07/28 01:00 Order name: LFT's; Complete Time: 02:19 [facility] 07/28 01:00 Order name: Magnesium; Complete Time: 02:19 [facility] 07/28 01:00 Order name: NT PRO-BNP; Complete Time: 02:19 [facility] 07/28 01:00 Order name: PT-INR; Complete Time: 02:05 [facility] 07/28 01:00 Order name: Troponin (emerg Dept Use Only); Complete Time: 02:19 [facility] 07/28 01:00 Order name: XRAY Chest (1 view) [facility] 07/28 01:00 Order name: EKG; Complete Time: 01: [facility] 07/28 01:00 Order name: Lipase; Complete Time: 02:19 [facility] 07/28 02:19 Order name: Wound Culture [facility] 07/28 01:00 Order name: Cardiac monitoring; Complete Time: : [facility] 07/28 01:00 Order name: EKG - Nurse/Tech; Complete Time: 01:41 [facility] 07/28 01:00 Order name: IV Saline Lock; Complete Time: 01: [facility] 07/28 01:00 Order name: Labs collected and sent; Complete Time: : [facility] 07/28 01:00 Order name: O2 Per Protocol; Complete Time: : [facility] 07/28 01:00 Order name: O2 Sat Monitoring; Complete Time: : [facility] 07/28 01:00 Order name: Pelvic Exam Setup; Complete Time: 01:46 [facility] Administered Medications: 01:36 Drug: Flagyl 500 mg Volume: 100 ml; Route: IVPB; Rate: 200 ml/hr; Infused Over: 30 wh mins; Site: right antecubital; 02:29 Follow up: Response: No adverse reaction; IV Status: Completed infusion 01:40 Drug: Rocephin 1 grams Route: IV; Rate: per protocol; Site: right antecubital; 02:29 Follow up: Response: No adverse reaction; IV Status: Completed infusion 02:29 Drug: Doxycycline 100 mg Route: PO; 02:29 Follow up: Response: No adverse reaction Disposition: 07/28/19 02:22 Discharged to Home. Impression: Pelvic and perineal pain, Abdominal tenderness, Urinary tract infection, site not specified. - Condition is Stable. - Discharge Instructions: Pelvic Pain, Female, How to Take a Sitz Bath, Pelvic Pain, Female, [id number]. - Prescriptions for Flagyl 500 mg Oral Tablet - take 1 tablet by ORAL route every 8 hours for 10 days; 21 tablet. Augmentin 875- 125 mg Oral Tablet - take 1 tablet by ORAL route every 12 hours for 10 days; 20 tablet. - Medication Reconciliation Form, Thank You Letter, Antibiotic Education, Prescription Opioid Use form. - Follow up: Private Physician; When: 2 - 3 days; Reason: Recheck today's complaints, Continuance of care, Re-evaluation by your physician. Follow up: Lina Corea MD; When: 2 - 3 days; Reason: Recheck today's complaints, Re-evaluation by your physician. Follow up: Kina Chappell MD; When: 2 - 3 days; Reason: Recheck today's complaints, Re-evaluation by your physician. - Problem is new. - Symptoms have improved. Signatures: Dispatcher [employer] EDMkial Santana MD MD cha Krenek, Amber, RN RN ak1 Samina Marvin Corrections: (The following items were deleted from the chart) 02:28 02:22 07/28/2019 02:22 Discharged to Home. Impression: Pelvic and perineal pain. [facility] Condition is Stable. Forms are Medication Reconciliation Form, Thank You Letter, Antibiotic Education, Prescription Opioid Use. Follow up: Private Physician; When: 2 - 3 days; Reason: Recheck today's complaints, Continuance of care, Re-evaluation by your physician. Follow up: Lina Corea; When: 2 - 3 days; Reason: Recheck today's complaints, Re-evaluation by your physician. Problem is new. Symptoms have improved. [facility] 02:54 02:28 07/28/2019 02:22 Discharged to Home. Impression: Pelvic and perineal pain; wh Abdominal tenderness; Urinary tract infection, site not specified. Condition is Stable. Discharge Instructions: Pelvic Pain, Female, How to Take a Sitz Bath, Pelvic Pain, Female, [id number]. Prescriptions for Flagyl 500 mg Oral Tablet - take 1 tablet by ORAL route every 8 hours for 10 days; 21 tablet, Augmentin 875-125 mg Oral Tablet - take 1 tablet by ORAL route every 12 hours for 10 days; 20 tablet. and Forms are Medication Reconciliation Form, Thank You Letter, Antibiotic Education, Prescription Opioid Use. Follow up: Private Physician; When: 2 - 3 days; Reason: Recheck today's complaints, Continuance of care, Re-evaluation by your physician. Follow up: Lina Corea; When: 2 - 3 days; Reason: Recheck today's complaints, Re-evaluation by your physician. Follow up: Kina Chappell; When: 2 - 3 days; Reason: Recheck today's complaints, Re-evaluation by your physician. Problem is new. Symptoms have improved. nita
--- NOTE | 2019-07-28 02:23 | ER ---
Nurse's Notes [facility] Name: Pooja Lawrence Age: 73 yrs Sex: Female : 1945 Arrival Date: 07/27/2019 Time: 23:07 Bed 8 Private MD: Diagnosis: Pelvic and perineal pain;Abdominal tenderness;Urinary tract infection, site not specified Presentation: 07/27 23:29 Presenting complaint: Patient states: abd pain X3 months. pt stated she has appointment ak1 with Dr. Spencer next week. fecal matter coming out of vagina. Transition of care: patient was not received from another setting of care. Onset of symptoms is unknown. Risk Assessment: Do you want to hurt yourself or someone else? Patient reports no desire to harm self or others. Initial Sepsis Screen: Does the patient meet any 2 criteria? No. Patient's initial sepsis screen is negative. Does the patient have a suspected source of infection? No. Patient's initial sepsis screen is negative. Care prior to arrival: None. 23:29 Method Of Arrival: Ambulatory ak1 23:29 Acuity: THOMAS 3 ak1 Triage Assessment: 23:31 General: Appears in no apparent distress. Behavior is calm, cooperative. ak1 Historical: - Allergies: 23:31 Ciprofloxacin (Respiratory distress); ak1 23:31 Demerol (Upset stomach); ak1 23:31 Sulfa (Sulfonamide Antibiotics) (Respiratory distress); ak1 23:31 Ultram; ak1 23:31 Morphine (Upset stomach); ak1 - Home Meds: 23:31 [place] Oral nightly [Active]; ak1 - PMHx: 23:31 Hypertension; mitral valve prolapse; scoliosis; ak1 - PSHx: 23:31 hemorrhoidectomy; Hysterectomy; ; Tonsillectomy; back surgery; Left arm ak1 surgery; - Immunization history:: Adult Immunizations unknown. - Social history:: Smoking status: Patient/guardian denies using tobacco. - Ebola Screening: : No symptoms or risks identified at this time. - Family history:: not pertinent. Screenin:31 Abuse screen: Denies threats or abuse. Denies injuries from another. Nutritional ak1 screening: No deficits noted. Tuberculosis screening: No symptoms or risk factors identified. Fall Risk None identified. Assessment: 07/28 00:30 General: Appears in no apparent distress. comfortable, Behavior is calm, cooperative, wh appropriate for age. Pain: Complains of pain in suprapubic area Pain does not radiate. Pain currently is 3 out of 10 on a pain scale. Quality of pain is described as aching, Pain began 2-3 days ago. Neuro: Level of Consciousness is awake, alert, obeys commands, Oriented to person, place, time, situation, Appropriate for age. Cardiovascular: Heart tones S1 S2. Respiratory: Airway is patent Respiratory effort is even, unlabored, Respiratory pattern is regular, symmetrical. GI: Abdomen is flat, non-distended. : Reports burning with urination, discharge, from vagina that is. EENT: No signs and/or symptoms were reported regarding the EENT system. Derm: Skin is intact, is healthy with good turgor, Skin is pink, warm \T\ dry. normal. Musculoskeletal: Circulation, motion, and sensation intact. 02:49 Reassessment: Patient appears in no apparent distress at this time. No changes from previously documented assessment. Patient and/or family updated on plan of care and expected duration. Pain level reassessed. Patient is alert, oriented x 3, equal unlabored respirations, skin warm/dry/pink. Vital Signs: 07/27 23:28 BP 128 / 70; Pulse 69; Resp 16; Temp 97.6; Pulse Ox 99% on R/A; Weight 48.08 kg (R); ak1 Height 5 ft. 5 in. (165.10 cm) (R); Pain 6/10; 07/28 00:30 BP 130 / 90; Pulse 57; Resp 18; Pulse Ox 100% on R/A; wh 02:00 BP 102 / 63; Pulse 59; Resp 18; Pulse Ox 96% ; 07/27 23:28 Body Mass Index 17.64 (48.08 kg, 165.10 cm) ak1 ED Course: 07/27 23:07 Patient arrived in ED. es 23:28 Arm band placed on Patient placed in waiting room, Patient notified of wait time. ak1 23:30 Triage completed. ak1 23:31 Patient has correct armband on for positive identification. ak1 23:59 Mikal Govea MD is Attending Physician. [facility] 07/28 01:00 Samina Marvin is Primary Nurse. 01:28 XRAY Chest (1 view) In Process Unspecified. EDUT 01:40 Inserted saline lock: 22 gauge in right antecubital area, using aseptic technique. ny Blood collected. 02:20 Assist provider with pelvic exam: Set up pelvic tray. Performed by Mikal Govea MD Specimens sent to lab. Patient tolerated well. 02:21 Lina Corea MD is Referral Physician. [facility] 02:28 Kina Chappell MD is Referral Physician. [facility] 02:53 IV discontinued, intact, bleeding controlled, No redness/swelling at site. Administered Medications: 01:36 Drug: Flagyl 500 mg Volume: 100 ml; Route: IVPB; Rate: 200 ml/hr; Infused Over: 30 wh mins; Site: right antecubital; 02:29 Follow up: Response: No adverse reaction; IV Status: Completed infusion 01:40 Drug: Rocephin 1 grams Route: IV; Rate: per protocol; Site: right antecubital; 02:29 Follow up: Response: No adverse reaction; IV Status: Completed infusion 02:29 Drug: Doxycycline 100 mg Route: PO; 02:29 Follow up: Response: No adverse reaction Outcome: 02:22 Discharge ordered by . [facility] 02:53 Discharged to home ambulatory. 02:53 Condition: stable 02:53 Discharge instructions given to patient, Instructed on discharge instructions, follow up and referral plans. medication usage, POC Pelvic Pain Demonstrated understanding of instructions, follow-up care, medications, POC Prescriptions given X 2. 02:54 Patient left the ED. Addendum: 08/02/2019 18:54 Addendum: Culture Results: Positive wound culture. No further action required. Bacteria i w sensitive to prescribed antibiotic. Signatures: Dispatcher [employer] Mikal Lyles MD MD cha Salyer, Edna es Williams, Irene, RN RN iw Krenek, Amber, RN RN Tatyana Sánchez mt, Winsy Corrections: (The following items were deleted from the chart) 07/28 02:51 00:30 Pain: Denies pain. [facility]
[2019-07-28] MEDS ORDERED: DOXYCYCLINE 100 MG CAP PO ONE (02:27)
[2019-07-28 03:24] VITALS: BP 102/63; O2SAT 96
--- NOTE | 2019-07-28 08:38 | RAD REPORT ---
EXAM DESCRIPTION: RAD - Chest Single View - 07/28/2019 1:30 am CLINICAL HISTORY: Abdominal pain, abdominal distention COMPARISON: October 2016 TECHNIQUE: AP portable chest image was obtained 0126 hours . FINDINGS: No focal lung parenchymal process. Lung markings match comparison. Heart and vasculature a re normal. No measurable pleural effusion and no pneumothorax. No acute bony abnormality seen. No acu te aortic finding. No free air under the diaphragm. IMPRESSION: No acute cardiopulmonary process. No significant interval change.
--- NOTE | 2019-07-28 12:11 | EKG ---
Test Date: 2019-07-28 Test Time: 01:34:21 Substation Inspector: IESHA MEASUREMENT RESULTS: Intervals: Rate: 47 VT: 150 QRSD: 84 QT: 488 QTc: 431 [place]: P: 82 VT: 150 QRS: 1 T: 82 INTERPRETIVE STATEMENTS: Sinus bradycardia Otherwise normal ECG Compared to ECG 08/09/2015 13:18:25 Sinus rhythm no longer present Left-axis deviation no longer present Electronically Signed On 07-28-19 12:08:59 CDT by Dakotah Roman
== END 2019-07-28 02:54 | disposition home or self-care (01) ==
LOC: ER 22:52
DX: N39.0 Urinary tract infection, site not specified (principal); R10.819 Abdominal tenderness, unspecified site; I10 Essential (primary) hypertension; I34.1 Nonrheumatic mitral (valve) prolapse; Z88.2 Allergy status to sulfonamides; Z88.3 Allergy status to other anti-infective agents; Z88.5 Allergy status to narcotic agent; Z88.8 Allergy status to other drugs, medicaments and biological substances
CPT/HCPCS: 36415; 71045; 80048; 80076; 83690; 83735; 83880; 84484; 85025; 85610; 87070; 87077; 87186; 87205; 93005; 96365; 96368; 99284

== ENCOUNTER 2020-09-11 20:51 | Inpatient (IN) | payer OTHER, MEDICARE ==
--- OUTSIDE RECORDS SUMMARY | 2020-09-11 20:55 | XMS REPORT | Clinical Summary ---
:1945 Author Organization [facility] Address [address] [place] [address] Care Team Providers Name Role Phone System, Not In RADIO TELEVISION TECHNICAL DIRECTOR-C Primary Care Provider Unavailable Allergies Active Allergy Reactions Severity Noted Date Comments Corticosteroids Palpitations Low 05/03/2016 Can take jennifer roid (Glucocorticoids) pills in s mall amounts Meperidine Shortness Of Breath High 05/03/2016 Morphine Palpitations Low 05/03/2016 Quinolones Shortness Of Breath High 05/03/2016 Sulfamethoxazole Rash Low 05/03/2016 Medications Medication Sig Dispensed Refills Start Date End Date Status metoprolol Take 25 mg by 1 03/20/2016 Acti ve tartrate mouth every (LOPRESSOR) 25 evening. MG tablet traMADoL Take 50 mg by 0 Active (ULTRAM) 50 mg mouth every 6 tabletIndication (six) hours as s: acute pain needed for moderate pain .acute pain. HYDROcodone-acet Take 1 tablet 0 05/02/2016 08/20/20 2 Discontinued aminophen by mouth every 0 (Stop Taking at (NORCO) 7.5-325 6 (six) hours Discharge) mg per tablet as needed for severe pain. 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 08/15/2020 Pre-Admission Pre-Admission Rk [place] Preop exam ination Testing Testing MD Ronny (Primary Dx) 08/15/2020 Travel 08/10/2020 Travel 07/27/2020 Travel after 09/11/2019 Surgical History Surgery Date Site/Laterality Comments BACK SURGERY x4 KNEE ARTHROSCOPY COLONOSCOPY ', 06/18--hyper plastic UPPER GASTROINTESTINAL ENDOSCOPY last , HP neg HYSTERECTOMY BILATERAL SALPINGOOPHORECTOMY BLADDER SUSPENSION CARPAL TUNNEL RELEASE Bilateral TONSILLECTOMY APPENDECTOMY RESECTION, COLON, LOW ANTERIOR, 08/18/2020 Abdomen/N/A Procedure: XI ROBOTIC LAPAROSCOPIC, ROBOT-ASSISTED ASS ISTED LAPAROSCOPIC TAKEDOWN OF COL OVAGINAL FISTULA , SPLENI C FLEXTURE LOW ANT ERIOR RESECTION AND IC G INJECTION; Surg sundeep: Rk [place] MD; Location: [facility]; Service: Co noemi and Rectal Surgery; Laterality: N/A; Medical History Medical History Date Comments Diverticulosis Diverticulitis of colon Lower back pain History of general anesthesia NHAP Exercise involving walking COUPLE TIMES PER WEEK 45 MINUTES-1 HOUR. MAINTAINS OWN YARD A ND HOME, VERY ACTIVE GOES UP AND DOWN STAIRS MULT IPLE TIMES DAILY. 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 Roman. 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 Last Filed Vital Signs Vital Sign Reading Time Taken Comments Blood Pressure 148/72 08/20/2020 3:27 PM POWER TECHNICIAN Pulse 88 08/20/2020 3:27 PM POWER TECHNICIAN Temperature 37 C (98.6 F) 08/20/2020 3:27 PM POWER TECHNICIAN Respiratory Rate 18 08/20/2020 3:27 PM POWER TECHNICIAN Oxygen Saturation 96% 08/20/2020 3:27 PM POWER TECHNICIAN Inhaled Oxygen Concentration - - Weight 51.2 kg (112 lb 12.8 oz) 08/18/2020 6:33 AM POWER TECHNICIAN Height 165.1 cm (5' 5") 08/18/2020 6:33 AM POWER TECHNICIAN Body Mass Index 18.77 08/18/2020 6:33 AM POWER TECHNICIAN Plan of Treatment Health Maintenance Due Date Last Done Comments BREAST CANCER SCREENING 1997 COLONOSCOPY SCREENING 1997 SHINGLES VACCINES (#1) 1997 65+ PNEUMOCOCCAL VACCINE (1 of 1 - PPSV23) 08/05/201209/06 INFLUENZA VACCINE 05/07/2020 09/06/2019 Procedures Procedure Name Priority Date/Time Associated Comments Diagnosis ESTIMATED GFR Routine 08/20/2020 4:12 AM Results for this POWER TECHNICIAN procedure are i n the results section. PHOSPHORUS LEVEL Routine 08/20/2020 4:12 AM Resu lts for this POWER TECHNICIAN procedure are i n the results section. MAGNESIUM LEVEL Routine 08/20/2020 4:12 AM Resul ts for this POWER TECHNICIAN procedure are i n the results section. BASIC METABOLIC Routine 08/20/2020 4:12 AM Resul ts for this PANEL POWER TECHNICIAN procedure are i n the results section. HC COMPLETE BLD Routine 08/20/2020 4:12 AM Resul ts for this COUNT W/AUTO DIFF POWER TECHNICIAN procedure are in the results section. ESTIMATED GFR Routine 08/19/2020 4:10 AM Results for this POWER TECHNICIAN procedure are i n the results section. PHOSPHORUS LEVEL Routine 08/19/2020 4:10 AM Resu lts for this POWER TECHNICIAN procedure are i n the results section. MAGNESIUM LEVEL Routine 08/19/2020 4:10 AM Resul ts for this POWER TECHNICIAN procedure are i n the results section. BASIC METABOLIC Routine 08/19/2020 4:10 AM Resul ts for this PANEL POWER TECHNICIAN procedure are i n the results section. HC COMPLETE BLD Routine 08/19/2020 4:10 AM Resul ts for this COUNT W/AUTO DIFF POWER TECHNICIAN procedure are in the results section. SURGICAL PATHOLOGY Routine 08/18/2020 2:41 PM Re sults for this REQUEST POWER TECHNICIAN procedure are i n the results section. ARTERIAL LINE Routine 08/18/2020 8:13 AM Results for this POWER TECHNICIAN procedure are i n the results section. ANESTHESIA Routine 08/18/2020 8:12 AM Results for this INTUBATION POWER TECHNICIAN procedure are i n the results section. RESECTION, COLON, 08/18/2020 7:28 AM Fistula of vagin a LOW ANTERIOR, POWER TECHNICIAN to large intestine LAPAROSCOPIC, ROBOT-ASSISTED Case Notes MARYAM MENENDEZ, MARYAM Walker OMING FROM [facility] [place] , MODIFIED LITHOTOMY POSITION , [place] ACCEPTED FIRST STAR T ON 08/18 @ 1131 KMM Special Needs MARYAM MENENDEZ, MARYAM Walker OMING FROM [place] [place] , TF ~ 1100, REQ 0730 START, MODIFIED LITHOTOMY POSITION ABO AND RH Routine 08/18/2020 6:45 AM Preop examination Res ults for this CONFIRMATION POWER TECHNICIAN procedure are i n the results section. COVID-19 QUALITATIVE Routine 08/15/2020 1:49 PM Preop examina tion Results for this PCR POWER TECHNICIAN procedure are i n the results section. ECG PRE/POST OP Routine 08/15/2020 1:40 PM Preop examination Results for this POWER TECHNICIAN procedure are i n the results section. ESTIMATED GFR Routine 08/15/2020 1:19 PM Results for this POWER TECHNICIAN procedure are i n the results section. HC COMPLETE BLD COUNT Routine 08/15/2020 1:19 PM Preop examin ation Results for this W/AUTO DIFF POWER TECHNICIAN procedure are i n the results section. COMPREHENSIVE Routine 08/15/2020 1:19 PM Preop examination Re sults for this METABOLIC PANEL POWER TECHNICIAN procedure ar e in the results section. HEMOGLOBIN A1C Routine 08/15/2020 1:19 PM Preop examination R esults for this POWER TECHNICIAN procedure are i n the results section. TYPE AND SCREEN Routine 08/15/2020 1:19 PM Preop examination Results for this POWER TECHNICIAN procedure are i n the results section. after 09/11/2019 Results Estimated GFR (08/20/2020 4:12 AM POWER TECHNICIAN)Only the most recent of3 resultswithin the time period is included. Estimated GFR 88 mL/min/1.73 [facility] Comment: m2 HOSPITAL Catergory Units Interpretation G1 >=90 Normal or high G2 60-89 Mildly decreased G3a 45-59 Mildly to moderately decreas ed G3b 30-44 Moderately to severely decre ased G4 15-29 Severely decreased G5 <15 Kidney failure The eGFR was calculated using the Chronic Kidney Disea se Epidemiology Collaboration (CKD-EPI) equation. Interpretation is based on recommendations of the National Kidney Foundation-Kidney Disease Outcomes Justin lity Initiative (NKF-KDOQI) published in 2014. Specimen Plasma Performing Organization Address City/[facility] Phon e Number [facility] DEPARTMENT OF PATHOLOGY AND [address] [place], [place] [address] [address] CBC with platelet and differential (08/20/2020 4:12 AM POWER TECHNICIAN)Only the most recent of3 resultswithin the time period is included. WBC 12.34 (H) 4.50 - 11.00 [facility] k/uL HOSPITAL RBC 4.34 4.20 - 5.50 [facility] m/uL [facility] HGB 12.6 12.0 - 16.0 [facility] g/dL [facility] HCT 39.1 37.0 - 47.0 % [facility] MCV 90.1 82.0 - 100.0 [facility] MCH 29.0 27.0 - 34.0 pg [facility] MCHC 32.2 31.0 - 37.0 [facility]/dL [facility] RDW - SD 49.3 37.0 - 55.0 fL [facility] MPV 10.8 8.8 - 13.2 fL [facility] Platelet count 120 (L) 150 - 400 k/uL [facility] Nucleated RBC 0.00 /100 WBC [facility] Neutrophils 82.2 (H) 39.0 - 69.0 % [facility] Lymphocytes 9.2 (L) 25.0 - 45.0 % [facility] Monocytes 5.6 0.0 - 10.0 % [facility] Eosinophils 1.8 0.0 - 5.0 % [facility] Basophils 0.6 0.0 - 1.0 % [facility] Immature granulocytes 0.6Comment: 0.0 - 1.0 % [facility] "Immature [facility] granulocytes" (promyelocytes , myelocytes, metamyelocytes ) Specimen Plasma Performing Organization Address City/[facility] Phon e Number [facility] DEPARTMENT OF PATHOLOGY AND [address] [place], [place] [address] [address] Phosphorus level (08/20/2020 4:12 AM POWER TECHNICIAN)Only the most recent of2 resultswithin the time period is included. Pathologist Sig nature Phosphorus 1.7 (L) 2.4 - 4.5 mg/dL [facility] L Specimen Plasma Performing Organization Address [facility] Phon e Number [facility] DEPARTMENT OF PATHOLOGY AND [address] [place] [address] [address] Magnesium level (08/20/2020 4:12 AM POWER TECHNICIAN)Only the most recent of2 resultswithin the time period is included. Pathologist Sig nature Magnesium 2.0 1.6 - 2.4 mg/dL [facility] L Specimen Plasma Performing Organization Address [facility] Phon e Number [facility] DEPARTMENT OF PATHOLOGY AND [address] [place] [address] Basic metabolic panel (08/20/2020 4:12 AM POWER TECHNICIAN)Only the most recent of2 results within the time period is included. Pathologist Sig [facility] Sodium 140 135 - 148 mEq/L [facility] L Potassium 4.0 3.5 - 5.0 mEq/L [facility] L Chloride 109 98 - 112 mEq/L [facility] CO2 22 (L) 24 - 31 mEq/L [facility] Anion gap 9@ANIO 7 - 15 mEq/L [facility] BUN 8 8 - 23 mg/dL [facility] Creatinine 0.66 0.50 - 0.90 mg/dL [facility] Glucose 99 65 - 99 mg/dL [facility] Calcium 8.5 (L) 8.8 - 10.2 mg/dL [facility] Specimen Plasma Performing Organization Address [facility] Phon e Number [facility] DEPARTMENT OF PATHOLOGY AND [address] [place], [place] [phone] Surgical pathology request (08/18/2020 2:41 PM POWER TECHNICIAN) [facility] DEPARTMENT OF PATHOLOGY AND GENOMIC MEDICINE Surgical pathology See link below [facility] DEPARTMENT OF report for PDF Lab PATHOLOGY AND Report GENOMIC MEDICINE Result status This is Final [facility] DEPARTMENT OF Report for PATHOLOGY AND [id number] GENOMIC MEDICINE Specimen Performing Organization Address City/State/ZIP Code Phon e Number [facility] DEPARTMENT OF PATHOLOGY AND [address] [place], [place] [address] GENOMIC MEDICINE Arterial line (08/18/2020 8:13 AM POWER TECHNICIAN) Narrative Performed At Zonia Sneed MD 08/18/2020 8:13 AM Arterial line Performed by: Zonia Sneed MD Authorized by: Zonia Sneed MD Staff: Anesthesiologist: Zonia Sneed MD Performed by: Anesthesiologist Pre-procedure: patient identified, IV ch ecked, site and side verified, risks and benefits discussed, procedure verified, surgical consent complete, patient position confirmed, mo nitors and equipment checked, pre-op evaluation complete and timeout p erformed prior to procedure MSBT: antiseptic used, all elements of maximal sterile barrier technique followed, hand hygiene performed, cap/go wn used by other personnel and solutions labeled Indications: Indications: multiple ABGs and hemody namic monitoring Anesthesia: Anesthesia: General Procedure Details: Arterial Line placement: Placed pos t induction Line placement site: Radial Line placement side: Right Arterial line gauge: 20 G Number of attempts: 1 Ultrasound guidance used: Yes Post-procedure: Post procedure circulation, sensation, movement: Unable to assess Airway (08/18/2020 8:12 AM POWER TECHNICIAN) Narrative Performed At Zonia Sneed MD 08/18/2020 8:13 AM Airway Performed by: Zonia Sneed MD Authorized by: Zonia Sneed MD Anesthesiologist: Zonia Sneed MD Performed by: anesthesiologist Preoxygenated with 100% O2: Yes C-spine Precautions Maintained Throughou t: No Mask Ventilation: Easy mask Final Airway Type: Endotracheal airway Final Endotracheal Airway: ETT Technique Used: Direct laryngoscopy Blade Type: Alejo Laryngoscope Blade/Videolaryngoscope Humberto de Size: 2 ETT Size (mm): 7.0 Measured from: Gums ETT to Teeth (cm): 19 Placement Verified by: CO2 detection Laryngoscopic view: Grade I - full vie w of glottis Rapid Sequence Induction (RSI): No Modified RSI: No Number of Attempts at Approach: 1 Airway placed atraumatically. Teeth gum s and lips in same condition as before induction. ABO and Rh confirmation (08/18/2020 6:45 AM POWER TECHNICIAN) Pathologist Sig nature ABO grouping O [facility] Rh type POS [facility] Specimen Plasma Performing Organization Address City/[facility] Phon e Number [facility] DEPARTMENT OF PATHOLOGY AND [address] [place] [address] 0 [place] [address] COVID-19 qualitative PCR (08/15/2020 1:49 PM POWER TECHNICIAN) Interpretation Negative results do not prec lude 2019-nCoV infection and should not be used as the sole basis for treatment or other patient management decisions. Negative results must be combined with clinical observations, patient history, and epidemiological [facility] information. [facility] COVID-19 qualitative Not-Detected Not-Detecte [place] PCR result d [facility] COVID-19 qualitative See link below for [place] PCR PDF Lab [facility] ReportComment: Case HOSPITAL Number: [id number] Specimen Nasal swab Performing Organization Address [facility] Phon e Number [facility] DEPARTMENT OF PATHOLOGY AND [address] [place] [address] ECG Pre/Post Op (08/15/2020 1:40 PM POWER TECHNICIAN) Pathologist Sig nature Ventricular rate 65 [facility] Atrial rate 65 [facility] AL interval 180 [facility] QRSD interval 88 [facility] QT interval 448 [facility] QTC interval 465 [facility] P axis 1 78 [facility] QRS axis 1 -2 [facility] T wave axis 81 [facility] EKG impression Normal sinus [facility] rhythm-Septal infarct , age undetermined-Abnormal ECG-No previous ECGs available-Electronicall y Signed By Feliz Palma MD ([id number]) on 08/15/2020 4:00:08 PM Specimen Narrative Performed At This result has an attachment that is no t available. Performing Organization Address City/[facility]/ZIP [facility] Phon e Number [facility] MUSE [address] [place], [place] [phone] Type and screen (08/15/2020 1:19 PM POWER TECHNICIAN) Pathologist Sig nature ABO grouping O [facility] Rh type POS [facility] Antibody screen (gel) NEG [facility] Specimen Plasma Performing Organization Address City/[facility] Phon e Number [facility] DEPARTMENT OF PATHOLOGY AND [address] [place], [place] [phone] 0 [facility] [address] [place] [address] Hemoglobin A1c (08/15/2020 1:19 PM POWER TECHNICIAN) Hemoglobin A1C 5.8 (H) 4.0 - 5.6 % [facility] Comment: HOSPITAL HbA1c cutoffs for diagnosing diabetes: 4.0% - 5.6% = normal 5.7% - 6.4% = increased risk for diabetes (prediabetes )9 >=6.5% = diabetes9 Goals for glycemic control (ADA 2016) < 7.0% Target for non adults with diabetes. More or less stringent targets may be appropriate for individual patients. <7.5% Target for Children and adolescents with type 1 diabetes. Specimen Blood Performing Organization Address City/State/ZIP Code Phon e Number [facility] DEPARTMENT OF PATHOLOGY AND [address] [place] [address] [address] [address] Comprehensive metabolic panel (08/15/2020 1:19 PM POWER TECHNICIAN) Pathologist [facility] Sodium 145 135 - 148 [facility] mEq/L [facility] Potassium 3.8 3.5 - 5.0 [facility] mEq/L [facility] Chloride 106 98 - 112 [facility] mEq/L [facility] CO2 27 24 - 31 mEq/L [facility] Anion gap 12@ANIO 7 - 15 mEq/L [facility] BUN 9 8 - 23 mg/dL [facility] Creatinine 0.99 (H) 0.50 - 0.90 [facility] mg/dL HOSPITAL Glucose 127 (H) 65 - 99 mg/dL [facility] Calcium 8.8 8.8 - 10.2 [facility] mg/dL HOSPITAL Protein 6.9 6.3 - 8.3 [facility] Comment: g/dL [facility] - [place] 4.6-7.0 g/dL 1 week 4.4-7.6 g/dL 7 months-1year 5.1-7.3 g/dL 1-2 years 5.6-7.5 g/dL >3 years 6.0-8.0 g/dL 18-150 6.3-8.3 g/dL Albumin 3.5 3.5 - 5.0 [facility] g/dL HOSPITAL A/G ratio 1.0 0.7 - 3.8 [facility] Alkaline phosphatase 59 35 - 104 U/L [facility] AST 20 10 - 35 U/L [facility] ALT 12 5 - 50 U/L [facility] Total bilirubin 0.4 0.0 - 1.2 [facility] mg/dL HOSPITAL Specimen Plasma Performing Organization Address City/State/ZIP Code Phon e Number [facility] DEPARTMENT OF PATHOLOGY AND [address] [place], [place] [address] GENOMIC MEDICINE [facility] [address] [place] [address] after 09/11/2019 Insurance Payer Benefit Plan / Subscriber ID Effective Dates Phone Addre ss Type Group MEDICARE MEDICARE PART A [id number] 2005-Present [place], [place] Medicare AND B AARP AARP SUPPLEMENT [id number] 2012-Yenifer Commercial t Advance Directives For more information, please contact: [phone] Type Date Recorded Patient Wood Gouger Explanati on Advance Directives, Living Will and Medical Power of Track Inspector Code Status Date Activated Date Inactivated Comments Full Code 08/18/2020 2:18 PM 08/20/2020 10:52 PM Code Status decision reached by: Patient
--- OUTSIDE RECORDS SUMMARY | 2020-09-11 20:56 | XMS REPORT | Continuity of Care Document ---
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, Not In Primary Care Physician Unavailable Ronny Madrid MD Attending Clinician Naren BLAIR Attending Clinician Toyin Faith APRN Attending Clinician TRAV Admitting Clinician Unavailable Payers Payer Name Policy Type Policy Effective Date Expiration Date Sour ce Number MEDICAREMEDICARE PART [id number] 2005 Darryl Johnson AND 00:00:00 Taoism [id number]/10/2004[place] [id number] 2012 [place] [id number] 00:00:00 Met pagan 2012-PresentComm ercial Problems Condition Condition Condition Status Onset Resolution Last Treating Co mments Source Name Details Category Date Date Treatment Clinician Date Preop Preop Disease Active 2019-10 [place] examinatio examinatio 10-18 Sc thodi n n 00:00: st 00 Allergies, Adverse Reactions, Alerts Allergy Allergy Status Severity Reaction(s) Onset Inactive Treating Comm ents Source Name Type Date Date Clinician Corticos Propensi Active Palpitations Can marilynn e [place] teroids ty to 7- steroid Methodi (Glucoco adverse 00:00: pills in st rticoids reaction 00 small ) s to amounts drug Meperidi Propensi Active Shortness Of [place] ne ty to Breath -28 Methodi adverse 00:00: st reaction 00 s to drug Morphine Propensi Active Palpitations [place] ty to 05-03 Methodi adverse 00:00: st reaction 00 s to drug Quinolon Propensi Active Shortness Of [place] es ty to Breath 05-03 Methodi adverse 00:00: st reaction 00 s to drug Sulfamet Propensi Active Rash Lyndonto n hoxazole ty to 05-03 Methodi adverse 00:00: st reaction 00 s to drug Family History Family Member Diagnosis Comments Start Date Stop Date Source Natural father Aortic aneurysm [place] on Taoism Natural mother [facility] Social History Social Habit Start Date Stop Date Quantity Comments Source History of tobacco Current smoker [place] use Taoism Sex Assigned At [place] Taoism Exposure to Not sure [place] SARS-CoV-2 (event) Method ist Cigarettes smoked 2020-08-22 2020-08-22 [place] current (pack per 00:00:00 00:00:[address] day) - Reported Cigarette 2020-08-22 2020-08-22 [place] pack-years 00:00:00 00:00:00 Taoism Tobacco use and 2020-08-22 2020-08-22 Never used [place] exposure 00:00:00 00:00:00 Taoism Alcohol intake 2020-08-22 2020-08-22 Ex-drinker [place] 00:00:00 00:00:00 (finding) Taoism Alcohol Comment 2020-08-13 2020-08-13 YEARLY A 10/08 [place] 00:00:00 00:00:00 GLASS OF WINE AT [facility] Smoking Status Start Date Stop Date Source Former smoker 2020-08-22 00:00:00 2020-08-22 00:00:00 [place] Taoism Medications Ordered Filled Start Stop Current Ordering Indication Dosage Frequency Signature Comments Components Source Medication Medication Date Date Medication? Clinician (SIG) Name Name traMADoL 2019-10 Yes acute pain 50mg Q6H Take 50 mg Brock (ULTRAM) 50 1-14 by mouth Meth nino mg tablet 18:52: every 6 st 32 (six) hours as needed for moderate pain .acute pain. HYDROcodone 2020- No 1{tbl} Q6H Take 1 [place] -acetaminop 7- 11-14 tablet by Sc kelle hen (NORCO) 00:00: 00:[address] 7.5-325 mg 00 :00 every 6 per tablet (six) hours as needed for severe pain. metoprolol 2016-0 Yes 25mg QD Take 25 mg [place] tartrate 6-14 by mouth Methodi (LOPRESSOR) 00:00: every st 25 MG 00 evening. tablet Vital Signs Vital Name Observation Time Observation Value Comments Source Systolic blood 2020-08-20 15:27:57 148 mm[Hg] Lyndonto n Taoism pressure Diastolic blood 2020-08-20 15:27:57 72 mm[Hg] [place] on Taoism pressure Heart rate 2020-08-20 15:27:57 88 /min Vinod Hung Body temperature 2020-08-20 15:27:57 37 Na Lyndon ton Taoism Respiratory rate 2020-08-20 15:27:57 18 /min Lyndon ton Taoism Oxygen saturation in 2020-08-20 15:27:57 96 /min Vinod Hung Arterial blood by Pulse oximetry Body height 2020-08-18 06:33:00 165.1 cm Vinod Hung Body weight 2020-08-18 06:33:00 51.166 kg Vinod Hung BMI 2020-08-18 06:33:00 18.77 kg/m2 Vinod Hung Procedures Procedure Date / Time Performed Performing Clinician Sourc e HC COMPLETE BLD COUNT 2020-08-20 04:12:00 Iris Kidd W/AUTO DIFF BASIC METABOLIC PANEL 2020-08-20 04:12:00 Iris Kidd MAGNESIUM LEVEL 2020-08-20 04:12:00 Iris Kidd Brock Nishant ethodist PHOSPHORUS LEVEL 2020-08-20 04:12:00 Iris Kidd ESTIMATED GFR 2020-08-20 04:12:00 Iris Kidd ethodist HC COMPLETE BLD COUNT 2020-08-19 04:10:00 Iris Kidd W/AUTO DIFF BASIC METABOLIC PANEL 2020-08-19 04:10:00 Iris Kidd MAGNESIUM LEVEL 2020-08-19 04:10:00 Iris Kidd Brock Nishant ethodist PHOSPHORUS LEVEL 2020-08-19 04:10:00 Iris Kidd ESTIMATED GFR 2020-08-19 04:10:00 Iris Kidd SURGICAL PATHOLOGY 2020-08-18 14:41:00 Rk Madrid REQUEST Ronny ARTERIAL LINE 2020-08-18 08:13:12 Zonia Sneed odsoo ANESTHESIA INTUBATION 2020-08-18 08:12:47 Zonia Sneed RESECTION, COLON, LOW 2020-08-18 07:28:00 Rk Madrid ANTERIOR, LAPAROSCOPIC, Ronny ROBOT-ASSISTED ABO AND RH CONFIRMATION 2020-08-18 06:45:00 Farnaz Faith COVID-19 QUALITATIVE PCR 2020-08-15 13:49:00 Rk Madrid ECG PRE/POST OP 2020-08-15 13:40:43 Farnaz Faith TYPE AND SCREEN 2020-08-15 13:19:00 Farnaz Faith HEMOGLOBIN A1C 2020-08-15 13:19:00 Farnaz Faith COMPREHENSIVE METABOLIC 2020-08-15 13:19:00 Farnaz Faith PANEL HC COMPLETE BLD COUNT 2020-08-15 13:19:00 Farnaz Faith W/AUTO DIFF ESTIMATED GFR 2020-08-15 13:19:00 Farnaz Faith Plan of Care Planned Activity Planned Date Details Comments Source Future Scheduled 2020-05-07 INFLUENZA VACCINE Rochelle Hung Test 00:00:00 [code = INFLUENZA VACCINE] Future Scheduled 2012 65+ PNEUMOCOCCAL Vinod Taoism Test 00:00:00 VACCINE (1 of 1 - PPSV23) [code = 65+ PNEUMOCOCCAL VACCINE (1 of 1 - PPSV23)] Future Scheduled 1997 BREAST CANCER Vinod Diaz thodist Test 00:00:00 SCREENING [code = BREAST CANCER SCREENING] Future Scheduled 1997 COLONOSCOPY SCREENING Darryl Hung Test 00:00:00 [code = COLONOSCOPY SCREENING] Future Scheduled 1997 SHINGLES VACCINES (#1) Muna Hung Test 00:00:00 [code = SHINGLES VACCINES (#1)] Encounters Start End Encounter Admission Attending Care Care Encounter Source Date/Time Date/Time Type Type Clinicians Facility Department ID 2020-08-18 2020-08-20 Inpatient TRAV, [facility] [id number] [place] 00:00:00 00:00:00 RK [address] 2020-08-15 2020-08-15 Outpatient TRAV, [facility] [id number] [place] 00:00:00 00:00:00 RK [address] Results Test Description Test Time Test Comments Results Result Comments Source Surgical pathology request 2020-08-22 13:49:53 Test Item Value Reference Range Interpretation Comme nts Case number (test code = [id number]) [id number] Surgical pathology report (test code = See link below for PDF Lab R eport 0574) Result status (test code = 5534511) This is Final Report for [id number] [place] MethodistBasic metabolic [id number] 06:12:05 Test Item Value Reference Range Interpretation Comments Sodium (test code = 2951-2) 140 135- 148 mEq/L Potassium (test code = 2823-3) 4.0 3.5- 5.0 mEq/L Chloride (test code = 2075-0) 109 98- 112 mEq/L CO2 (test code = 8-9) 22 24- 31 mEq/L L Anion gap (test code = 31722-8) 9@ANIO 7- 15 mEq/L BUN (test code = 3094-0) 8 mg/dL 8-23 Creatinine (test code = 2160-0) 0.66 mg/dL 0.5-0.9 Glucose (test code = 2345-7) 99 mg/dL 65-99 Calcium (test code = 21922-2) 8.5 mg/dL 8.8-10.2 L Lab Interpretation (test code = Abnormal 70968-9) [place] MethodistMagnesium [id number] 06:12:04 Test Item Value Reference Range Interpretation Comments Magnesium (test code = 34386-6) 2.0 mg/dL 1.6-2.4 [place] MethodistPhosphorus [id number] 06:12:04 Test Item Value Reference Range Interpretation Comments Phosphorus (test code = 2777-1) 1.7 mg/dL 2.4-4.5 L Lab Interpretation (test code = Abnormal 34130-2) Vinod MethodistEstimated [id number] 06:12:04 Test Item Value Reference Range Interpretation Comments Estimated GFR (test 88 mL/min/1.73 m2 Isai corrales Units code = 5488) InterpretationG 1 >=90 Normal or highG2 60-89 Mildly pllfxqjrcY9e 45-59 Mildly to mode rately wbptxteprO0j 30-44 Moderately to severely decreasedG4 15-29 Severely decre asedG5 <15 Kidn ey failureThe eGFR was calculated matias jennings the Chronic Kidney Disease Epidemiology Co llaboration (CKD-EPI) equat ion. Interpretation is based on recommendations of the National Kidney Foundation-Kidn ey Disease Outcomes Qualit y Initiative (NKF-KDOQI) pub lished in 2014. Vinod MethodistCBC with platelet and [id number] 05:23:16 Test Item Value Reference Range Interpretation Comments WBC (test code = 48464-6) 12.34 4.50- 11.00 k/uL H RBC (test code = 20935-3) 4.34 m/uL 4.2-5.5 HGB (test code = 718-7) 12.6 g/dL 12-16 HCT (test code = 4544-3) 39.1 % 37-47 MCV (test code = 787-2) 90.1 fL 82-100 MCH (test code = 785-6) 29.0 pg 27-34 MCHC (test code = 786-4) 32.2 g/dL 31-37 RDW - SD (test code = 49.3 fL 37-55 36312-6) MPV (test code = 00166-2) 10.8 fL 8.8-13.2 Platelet count (test code 120 150- 400 k/uL L = 20902-4) Nucleated RBC (test code 0.00 /100 WBC = 29187-4) Neutrophils (test code = 82.2 % 39-69 H 22898-9) Lymphocytes (test code = 9.2 % 25-45 L 66125-1) Monocytes (test code = 5.6 % 0-10 05145-3) Eosinophils (test code = 1.8 % 0-5 88484-2) Basophils (test code = 0.6 % 0-1 45254-4) Immature granulocytes 0.6 % 0-1 "Immat ure (test code = 69162-5) granul ocytes" (promyelocytes, myelocytes, metamyelocytes) Lab Interpretation (test Abnormal code = 34261-9) Vinod MethodistArterial [id number] 08:13:12Zonia Sneed MD 08/18/2020 8:13 AMArterial linePerformed by: Zonia Sneed MDAuthorized by: Zonia Sneed MD Staff: Anesthesiologist: Zonia Sneed MD Performed by: AnesthesiologistPre-procedure: patient identified, IV checked, site and side verified, risks and benefits discussed, procedure verified, surgical consent complete, patient position confirmed, monitors and equipment checked, pre-op evaluation complete and timeout performed prior to procedure MSBT: antiseptic used, all elements of maximal sterile barrier technique followed, hand hygiene performed, cap/gown used by other personnel and solutions labeled Indications: Indications: multiple ABGs and hemodynamic monitoring Anesthesia: Anesthesia: GeneralProcedure Details: Arterial Line placement: Placed post induction Line placement site: RadialLine placement side: Right Arterial line gauge: 20 GNumber of attempts: 1 Ultrasound guidance used: Yes Post- procedure: Post procedure circulation, sensation, movement: Unable to assess Vinod BorjaQcqbqospjIsacfd8748-07-06 08:12:47Zonia Sneed MD 08/18/2020 8:13 AMAirwayPerformed by: Zonia Sneed MDAuthorized by: Zonia Sneed MD Anesthesiologist: Zonia Sneed MDPerformed by: anesthesiologistPreoxygenated with 100% O2: Yes C-spine Precautions Maintained Throughout: No Mask Ventilation: Easy maskFinal Airway Type: Endotracheal airwayFinal Endotracheal Airway: ETTTechnique Used: Direct laryngoscopyBlade Type:MillerLaryngoscope Blade/Videolaryngoscope Blade Size: 2ETT Size (mm): 7.0Measured from: GumsETT to Teeth (cm): 19Placement Verified by: CO2 detection Laryngoscopic view: Grade I - full view of glottisRapid Sequence Induction (RSI): No Modified RSI: No Number of Attempts at Approach: 1 Airway placed atraumatically. Teeth gums and lips in same condition as before induction.Brock MethodistABO and Rh [id number] 07:42:00 Test Item Value Reference Range Interpretation Comments ABO grouping (test code = 883-9) O Rh type (test code = 80831-3) POS Vinod MethodistCOVID-19 qualitative [id number] 21:42:24 Test Item Value Reference Range Interpretation Comments Interpretation (test Negative results do code = 6229001) not preclude 2019-nCoV infection and should not be used as the sole basis for treatment or other patient management decisions. Negative results must be combined with clinical observations, patient history, and epidemiological information. COVID-19 qualitative Not-Detected Not-Detected PCR result (test code = 80245-0) COVID-19 qualitative See link below for C ase Number: PCR (test code = PDF Lab Report [id number]) Vinod HungECG Pre/Post [id number] 16:00:09 Test Item Value Reference Range Interpretation Comments Ventricular rate (test 65 code = 253) Atrial rate (test code = 65 255) VT interval (test code = 180 266) QRSD interval (test code 88 = 260) QT interval (test code = 448 264) QTC interval (test code 465 = 265) P axis 1 (test code = 78 267) QRS axis 1 (test code = -2 268) T wave axis (test code = 81 270) EKG impression (test Normal sinus code = 273) rhythm-Septal infarct , age undetermined-Abnormal ECG-No previous ECGs available-Electronica lly Signed By Feliz Palma MD ([id number]) on 08/15/2020 4:00:08 PM Vinod MethodistType and [id number] 15:52:00 Test Item Value Reference Range Interpretation Comments ABO grouping (test code = 883-9) O Rh type (test code = 58206-1) POS Antibody screen (gel) (test code = NEG 890-4) [place] MethodistHemoglobin [id number] 15:31:25 Test Item Value Reference Range Interpretation Comments Hemoglobin A1C (test 5.8 % 4-5.6 H HbA1c c utoffs for code = 37798-4) diagnosing diabetes:4.0% - 5.6% = normal5.7% - 6.4% = increased risk for diabetes (prediabetes)9> =6.5% = qnaaueuu3Giop s for glycemic contro l (ADA 2016)< 7.0% Ta rget for non adults with leny betes. More or less stringent targe ts may be appropriate for individual shakir ents. <7.5% Target for Children and adolescents wit h type 1 diabetes. Lab Interpretation (test Abnormal code = 29722-9) Vinod HungComprehensive metabolic [id number] 15:04:38 Test Item Value Reference Range Interpretation Comments Sodium (test code = 145 135- 148 mEq/L 2951-2) Potassium (test code = 3.8 3.5- 5.0 mEq/L 2823-3) Chloride (test code = 106 98- 112 mEq/L 5-0) CO2 (test code = 2027-9) 27 24- 31 mEq/L Anion gap (test code = 12@ANIO 7- 15 mEq/L 70504-4) BUN (test code = 3094-0) 9 mg/dL 8-23 Creatinine (test code = 0.99 mg/dL 0.5-0.9 H 2160-0) Glucose (test code = 127 mg/dL 65-99 H 2345-7) Calcium (test code = 8.8 mg/dL 8.8-10.2 61739-6) Protein (test code = 6.9 g/dL 6.3-8.3 -[place] n 2885-2) 4.6-7.0 g/dL1 week 4.4-7 .6 g/dL7 months-1y ear 5.1-7 .3 g/dL1-2 years 5.6-7 .5 g/dL>3 years 6.0-8 .0 g/lE52-240 6.3-8 .3 g/dL Albumin (test code = 3.5 g/dL 3.5-5 1751-7) A/G ratio (test code = 1.0 0.7-3.8 1759-0) Alkaline phosphatase 59 U/L 35-104 (test code = 6768-6) AST (test code = 1920-8) 20 U/L 10-35 ALT (test code = 1742-6) 12 U/L 5-50 Total bilirubin (test 0.4 mg/dL 0-1.2 code = 1974-2) Lab Interpretation (test Abnormal code = 45402-0) Vinod Hung
[2020-09-11 22:20] LABS: Urine Amorphous Sediment 1+ /HPF (NONE SEEN); Urine Bacteria 20-50 /HPF (<20); Urine Mucus 1+ /HPF (NONE SEEN); Urine RBC <5 /HPF (NONE SEEN)
[2020-09-11 22:32] LABS: Absolute Lymphocytes (CBC) 1.4 K/uL (0.7-4.9); Basophils % 1.3 % (0-1.3); Lymphocytes % 15.2 % (15.3-44.8); MPV 8.8 fL (7.6-11.3); RBC Red Blood Cell Count 4.55 M/uL (3.86-4.86)
[2020-09-11] MEDS ORDERED: NA CHLORIDE 0.9% 1,000 ML ONE (22:42)
[2020-09-11] MEDS ORDERED: ONDANSETRON 4 MG/2 ML VIAL ONE (22:42)
[2020-09-11 22:43] LABS: Albumin 3.5 g/dL (3.4-5.0); Bilirubin Direct 0.2 mg/dL (0-0.2); Bilirubin Total 0.6 mg/dL (0.2-1.0); Potassium 3.3 mmol/L (3.5-5.1)
--- NOTE | 2020-09-12 00:09 | EDPHYS ---
Physician Documentation [facility] Name: Pooja Lawrence Age: 75 yrs Sex: Female : 1945 Arrival Date: 09/11/2020 Time: 20:55 Bed 26 Private MD: ED Physician Dougie De La Rosa HPI: 09/11 23:41 This 75 yrs old Female presents to ER via Ambulatory with complaints of tw4 Nausea, Vaginal Discharge. 23:41 The patient presents to the emergency department with nausea, abdominal pain, of the tw4 suprapubic area. Onset: The symptoms/episode began/occurred 1 week(s) ago. Possible causes: unknown. The symptoms are aggravated by nothing. The symptoms are alleviated by nothing. Associated signs and symptoms: Pertinent positives: abdominal pain. The patient has not experienced similar symptoms in the past. Historical: - Allergies: 21:03 Ciprofloxacin (Respiratory distress); ca1 21:03 Demerol (Upset stomach); ca1 21:03 Morphine (Upset stomach); ca1 21:03 Sulfa (Sulfonamide Antibiotics) (Respiratory distress); ca1 21:03 Ultram; ca1 - PMHx: 21:03 Hypertension; mitral valve prolapse; scoliosis; ca1 - PSHx: 21:03 hemorrhoidectomy; Hysterectomy; ; Tonsillectomy; back surgery; Left arm ca1 surgery; - Immunization history:: Adult Immunizations up to date, Pneumococcal vaccine is up to date, Flu vaccine is up to date. - Social history:: Smoking status: Patient denies any tobacco usage or history of. ROS: 09/12 00:01 Constitutional: Negative for fever, chills, and weight loss, Eyes: Negative for injury, tw4 pain, redness, and discharge, Cardiovascular: Negative for chest pain, palpitations, and edema, Respiratory: Negative for shortness of breath, cough, wheezing, and pleuritic chest pain, Back: Negative for injury and pain, MS/Extremity: Negative for injury and deformity, Skin: Negative for injury, rash, and discoloration, Neuro: Negative for headache, weakness, numbness, tingling, and seizure. Abdomen/GI: Positive for abdominal pain, nausea and vomiting, nausea. Exam: 09/11 23:41 Constitutional: This is a well developed, well nourished patient who is awake, alert, tw4 and in no acute distress. Head/Face: Normocephalic, atraumatic. Chest/axilla: Normal chest wall appearance and motion. Nontender with no deformity. No lesions are appreciated. Cardiovascular: Regular rate and rhythm with a normal S1 and S2. No gallops, murmurs, or rubs. Normal PMI, no JVD. No pulse deficits. Respiratory: Lungs have equal breath sounds bilaterally, clear to auscultation and percussion. No rales, rhonchi or wheezes noted. No increased work of breathing, no retractions or nasal flaring. Back: No spinal tenderness. No costovertebral tenderness. Full range of motion. Skin: Warm, dry with normal turgor. Normal color with no rashes, no lesions, and no evidence of cellulitis. MS/ Extremity: Pulses equal, no cyanosis. Neurovascular intact. Full, normal range of motion. Neuro: Awake and alert, GCS 15, oriented to person, place, time, and situation. Cranial nerves II-XII grossly intact. Motor strength 5/5 in all extremities. Sensory grossly intact. Cerebellar exam normal. Normal gait. Abdomen/GI: Inspection: abdomen appears normal, Bowel sounds: normal, Palpation: mild abdominal tenderness, in the suprapubic area. Vital Signs: 20:58 BP 139 / 74; Pulse 104; Resp 18 S; Temp 97.1(TE); Pulse Ox 99% on R/A; Weight 48.08 kg ca1 (R); Height 5 ft. 5 in. (165.10 cm) (R); 22:10 BP 141 / 75; Pulse 89; Resp 17; Pulse Ox 100% ; rr5 23:10 BP 165 / 89; Pulse 80; Resp 19; Pulse Ox 99% ; rr5 23:54 BP 161 / 75; Pulse 84; Resp 16; Pulse Ox 99% ; rr5 09/12 00:46 BP 151 / 80; Pulse 90; Resp 19; Pulse Ox 99% ; rr5 01:14 BP 156 / 85; Pulse 76; Resp 16; Pulse Ox 97% ; rr5 09/11 20:58 Body Mass Index 17.64 (48.08 kg, 165.10 cm) ca1 MDM: 09/11 21:36 Patient medically screened. tw4 23:41 Differential diagnosis: Nonspecific abd pain, gastritis, pancreatitis, appendicitis, tw4 diverticulitis. Data reviewed: vital signs, nurses notes. Data interpreted: Pulse oximetry: Interpretation: normal. Counseling: I had a detailed discussion with the patient and/or guardian regarding: the historical points, exam findings, and any diagnostic results supporting the discharge/admit diagnosis. 09/12 00:01 Physician consultation: Benedict Tobar MD was contacted at 23:55, regarding admission, to [facility] the medical/surgical unit. patient's condition, and will see patient in office, tomorrow. Admission orders: after a detailed discussion of the patient's condition and case, the admit orders are written by me. 09/11 22:03 Order name: Basic Metabolic Panel [facility] 09/11 22:03 Order name: CBC with Diff [facility] 09/11 22:03 Order name: Hepatic Function [facility] 09/11 22:03 Order name: Lipase [facility] 09/11 22:03 Order name: Urine Microscopic Only [facility] 09/11 22:21 Order name: Urine Culture [facility] 09/11 22:29 Order name: Urine Dipstick--Ancillary (enter results) [facility] 09/11 22:47 Order name: CREATININE WHOLE BLOOD EDME 09/12 00:21 Order name: COVID-19 [facility] 09/11 22:03 Order name: IV Saline Lock; Complete Time: 22:12 [facility] 09/11 22:03 Order name: Labs collected and sent; Complete Time: 22:12 [facility] 09/11 22:03 Order name: Urine Dipstick-Ancillary (obtain specimen); Complete Time: 22:04 [facility] 09/11 22:15 Order name: IV Saline Lock; Complete Time: 22:[address] [facility] 09/11 22:15 Order name: Labs collected and sent; Complete Time: 22:[address] [facility] 09/11 22:15 Order name: CT Abd/Pelvis - IV Contrast Only [facility] 09/12 00:17 Order name: CONS Pharmacy Consult [facility] 09/12 00:17 Order name: NPO [facility] Administered Medications: 09/11 22:30 Drug: NS 0.9% 1000 ml Route: IV; Rate: 1 bolus; Site: right antecubital; rr5 09/12 00:30 Follow up: Response: No adverse reaction; IV Status: Completed infusion; IV Intake: rr5 1000ml 12/06 22:30 Drug: Zofran (Ondansetron) 4 mg Route: IVP; Site: right antecubital; rr5 23:30 Follow up: Response: No adverse reaction rr5 09/12 00:37 Drug: Zosyn 3.375 grams Route: IVPB; Infused Over: 60 mins; Site: right antecubital; rr5 01:19 Follow up: Response: No adverse reaction; IV Status: Completed infusion; IV Intake: rr5 100ml 01:19 Dru grams of (vancoMYCIN 1 grams, NS 0.9% 250 ml) Route: IVPB; Infused Over: 2 hrs; rr5 Site: right antecubital; 01:21 Follow up: IV Status: Infusion continued upon admission rr5 Disposition: 09/12/20 00:08 Hospitalization ordered by Benedict Tobar for Inpatient Admission. Preliminary diagnosis are Intra-abdominal and pelvic swelling, mass and lump, Intra-abdominal abscess. - Bed requested for Telemetry/MedSurg (Inpatient). - Status is Inpatient Admission. rr5 - Condition is Fair. - Problem is new. - Symptoms are unchanged. Signatures: Dispatcher [employer] EDME Reema Dean RN RN Dougie De La Rosa MD MD tw4 Tj Jain RN RN rr5 Marisel Kendall RN RN ca1 Corrections: (The following items were deleted from the chart) 00:13 00:08 Hospitalization Ordered by Benedict Tobar MD for Inpatient Admission. Preliminary mw diagnosis is Intra-abdominal and pelvic swelling, mass and lump; Intra-abdominal abscess. Bed requested for Telemetry/MedSurg (Inpatient). Status is Inpatient Admission. Condition is Fair. Problem is new. Symptoms are unchanged. tw4 00:16 09/11 22:16 BASIC METABOLIC PANEL+C.LAB.BRZ ordered. EDME EDME 09/12 00:16 12 22:16 CBC+H.LAB.BRZ ordered. EDME EDME 09/12 00:16 12 22:16 HEPATIC FUNCTION+C.LAB.BRZ ordered. EDME EDMS 09/12 00:16 12 22:16 LIPASE+C.LAB.BRZ ordered. EDME EDME 09/12 00:44 00:22 CORONAVIRUS ordered. EDME EDMS 01:21 00:13 09/12/2020 00:08 Hospitalization Ordered by Benedict Tobar MD for Inpatient rr5 Admission. Preliminary diagnosis is Intra-abdominal and pelvic swelling, mass and lump; Intra-abdominal abscess. Bed requested for Telemetry/MedSurg (Inpatient). Status is Inpatient Admission. Condition is Fair. Problem is new. Symptoms are unchanged. mw
--- NOTE | 2020-09-12 00:09 | ER ---
Nurse's Notes [facility] Name: Pooja Lawrence Age: 75 yrs Sex: Female : 1945 Arrival Date: 09/11/2020 Time: 20:55 Bed 26 Private MD: Diagnosis: Intra-abdominal and pelvic swelling, mass and lump;Intra-abdominal abscess Presentation: 09/11 20:58 Chief complaint: Patient states: 2 - 3 weeks ago, the doctor said there was a hole in ca1 my colon and I am having discharges through my vagina. I had a surgery 2 - 3 weeks ago to fix it. But I am still having gant thick vaginal discharge and I am sick to my stomach. Coronavirus screen: Client denies travel out of the [place] in the last 14 days. At this time, the client does not indicate any symptoms associated with coronavirus-19. Ebola Screen: Patient negative for fever greater than or equal to 101.5 degrees Fahrenheit, and additional compatible Ebola Virus Disease symptoms Patient denies exposure to infectious person. Patient denies travel to an Ebola-affected area in the 21 days before illness onset. No symptoms or risks identified at this time. Initial Sepsis Screen: Does the patient meet any 2 criteria? No. Patient's initial sepsis screen is negative. Does the patient have a suspected source of infection? No. Patient's initial sepsis screen is negative. Risk Assessment: Do you want to hurt yourself or someone else? Patient reports no desire to harm self or others. Onset of symptoms was September 11, 2020. 20:58 Method Of Arrival: Ambulatory ca1 20:58 Acuity: THOMAS 3 ca1 Historical: - Allergies: 21:03 Ciprofloxacin (Respiratory distress); ca1 21:03 Demerol (Upset stomach); ca1 21:03 Morphine (Upset stomach); ca1 21:03 Sulfa (Sulfonamide Antibiotics) (Respiratory distress); ca1 21:03 Ultram; ca1 - PMHx: 21:03 Hypertension; mitral valve prolapse; scoliosis; ca1 - PSHx: 21:03 hemorrhoidectomy; Hysterectomy; ; Tonsillectomy; back surgery; Left arm ca1 surgery; - Immunization history:: Adult Immunizations up to date, Pneumococcal vaccine is up to date, Flu vaccine is up to date. - Social history:: Smoking status: Patient denies any tobacco usage or history of. Screenin:10 Abuse screen: Denies threats or abuse. Denies injuries from another. Nutritional rr5 screening: No deficits noted. Tuberculosis screening: No symptoms or risk factors identified. Fall Risk IV access (20 points). Total Shepard Fall Scale indicates No Risk (0-24 pts). Assessment: 21:10 General: Appears in no apparent distress. comfortable, Behavior is calm, cooperative, rr5 anxious. 21:10 Pain: Denies pain. Neuro: Level of Consciousness is awake, alert, obeys commands, rr5 Oriented to person, place, time, situation. Cardiovascular: Capillary refill < 3 seconds Patient's skin is warm and dry. Respiratory: Airway is patent Respiratory effort is even, unlabored, Respiratory pattern is regular, symmetrical. GI: Abdomen is flat, non-distended, Reports nausea. : Reports discharge, from vagina that is. EENT: No signs and/or symptoms were reported regarding the EENT system. Derm: Skin is fragile, is thin, Skin temperature is warm. Musculoskeletal: Circulation, motion, and sensation intact. Capillary refill < 3 seconds. 22:30 Reassessment: Patient appears in no apparent distress at this time. Patient and/or rr5 family updated on plan of care and expected duration. Pain level reassessed. Patient is alert, oriented x 3, equal unlabored respirations, skin warm/dry/pink. 23:15 Reassessment: Patient appears in no apparent distress at this time. Patient is alert, rr5 oriented x 3, equal unlabored respirations, skin warm/dry/pink. awaiting for results. 23:54 Reassessment: Patient appears in no apparent distress at this time. Patient and/or rr5 family updated on plan of care and expected duration. Pain level reassessed. reassessment done by ED provider for explained the CT result. 09/12 01:15 Reassessment: Patient appears in no apparent distress at this time. Patient is alert, rr5 oriented x 3, equal unlabored respirations, skin warm/dry/pink. for transfer to room 220 awake alert no complaints made. Vital Signs: 09/11 20:58 BP 139 / 74; Pulse 104; Resp 18 S; Temp 97.1(TE); Pulse Ox 99% on R/A; Weight 48.08 kg ca1 (R); Height 5 ft. 5 in. (165.10 cm) (R); 22:10 BP 141 / 75; Pulse 89; Resp 17; Pulse Ox 100% ; rr5 23:10 BP 165 / 89; Pulse 80; Resp 19; Pulse Ox 99% ; rr5 23:54 BP 161 / 75; Pulse 84; Resp 16; Pulse Ox 99% ; rr5 1207 00:46 BP 151 / 80; Pulse 90; Resp 19; Pulse Ox 99% ; rr5 01:14 BP 156 / 85; Pulse 76; Resp 16; Pulse Ox 97% ; rr5 12 20:58 Body Mass Index 17.64 (48.08 kg, 165.10 cm) ca1 ED Course: 12 20:55 Patient arrived in ED. ag3 21:02 Triage completed. ca1 21:03 Arm band placed on right wrist. ca1 21:09 Tj Jain, JUDSON is Primary Nurse. rr5 21:10 Patient has correct armband on for positive identification. Placed in gown. Bed in low rr5 position. Call light in reach. Side rails up X2. manager community development on. Pulse ox on. NIBP on. 21:36 Dougie De La Rosa MD is Attending Physician. tw4 22:12 No provider procedures requiring assistance completed. Inserted saline lock: 20 gauge rr5 in right antecubital area, using aseptic technique. Blood collected. 23:07 CT Abd/Pelvis - IV Contrast Only In Process Unspecified. EDMS 09/12 00:07 Benedict Tobar MD is Hospitalizing Provider. tw4 01:14 COVID swab sent to lab. Patient admitted, IV remains in place. intact, No rr5 redness/swelling at site. Administered Medications: 09/11 22:30 Drug: NS 0.9% 1000 ml Route: IV; Rate: 1 bolus; Site: right antecubital; rr5 09/12 00:30 Follow up: Response: No adverse reaction; IV Status: Completed infusion; IV Intake: rr5 1000ml 09/11 22:30 Drug: Zofran (Ondansetron) 4 mg Route: IVP; Site: right antecubital; rr5 23:30 Follow up: Response: No adverse reaction rr5 09/12 00:37 Drug: Zosyn 3.375 grams Route: IVPB; Infused Over: 60 mins; Site: right antecubital; rr5 01:19 Follow up: Response: No adverse reaction; IV Status: Completed infusion; IV Intake: rr5 100ml 01:19 Dru grams of (vancoMYCIN 1 grams, NS 0.9% 250 ml) Route: IVPB; Infused Over: 2 hrs; rr5 Site: right antecubital; 01:21 Follow up: IV Status: Infusion continued upon admission rr5 Intake: 00:30 IV: 1000ml; Total: 1000ml. rr5 01:19 IV: 100ml; Total: 1100ml. rr5 Outcome: 00:08 Decision to Hospitalize by Provider. tw4 01:14 Admitted to Med/surg accompanied by tech, via stretcher, room 220, with chart, Report rr5 called to [facility] 01:14 Condition: stable 01:14 Instructed on the need for admit. 01:21 Patient left the ED. rr5 Signatures: Dispatcher [employer] EDDougie Reyes MD MD tw4 Denise Rodriguez 3 Tj Jain, JUDSON RN rr5 Marisel Kendall RN RN ca1 Corrections: (The following items were deleted from the chart) 09/11 23:56 23:54 BP 131 / 75; Pulse 84bpm; Resp 16bpm; Pulse Ox 99%; rr5 rr5
[2020-09-12 00:12] LABS: Urine Blood TRACE (NEG); Urine Glucose NEGATIVE (NEG); Urine Protein TRACE (NEG); Urine Specific Gravity >1.030 (1.005-1.030); Urine pH 5.5 (5.0-7.0)
[2020-09-12] MEDS ORDERED: MORPHINE 2 MG/ML SYR IV PRN (00:14)
[2020-09-12] MEDS ORDERED: ONDANSETRON 4 MG/2 ML VIAL IV PRN (00:14)
[2020-09-12] MEDS ORDERED: VANCOMYCIN 1 GM/VIAL ONE (00:29)
[2020-09-12] MEDS ORDERED: PIPER/TAZO/NS 3.375gm 3.375 GM/100 ML BAG ONE (00:29)
[2020-09-12] MEDS ORDERED: NA CHLORIDE 0.9% 250 ML ONE (00:29)
[2020-09-12 02:23] VITALS: BMI 17.7
--- NOTE | 2020-09-12 09:23 | HP ---
Date of Admission: 09/12/2020 Brief History Of Present Illness: Patient is a 75-year-old female with a history of lynn ia who presents to the hospital approximately 3 weeks status post laparoscopy and surgical repair of a colovaginal fistula. The patient is a poor historian and as such information is obtained predomina nt from chart and from her limited history and understanding. She states that she has been having wo rsening abdominal pain over the course of the last week. She has had increased discharge from her [facility]. She states that she has had blood from her vagina before and what appeared to be purulent mate rial and as such she was concerned with the worsening abdominal pain and purulent discharge. As such , she came to the emergency room with the above-stated complaints. Past Medical History: Significant for mitral valve prolapse, scoliosis, hypertension, colovaginal fi stula, and dementia. Past Surgical History: She has had hemorrhoidectomy, hysterectomy, , tonsillectomy, back boone rgery, left upper extremity surgery, and a repair of a colovaginal fistula as of she states about 3 w eeks ago. Allergies: TO CIPRO, DEMEROL, MORPHINE, SULFA, ULTRAM. Home Medications: She cannot recall. Review of Systems: A 10-point review of systems other than HPI, she admits to some fever and chills on occasion, but she did not take her temperature. Physical Examination: Vital Signs: Her temperature is 97.7, her heart rate is 88, respiratory rate 18, blood pressure 166/ 72, SpO2 99% on room air. She currently is pain-free. General: She is awake, alert, and oriented but she is a poor historian and has poor insight into her past medical and surgical history other than the recent descriptions as above. HEENT: Otherwise her head is normocephalic. Her sclerae were anicteric. Her mucous is moist. Orop harynx is clear. Neck: Supple without JVD. Chest: Normal expansion and excursion. Cardiovascular: Regular rhythm. Pulmonary: Clear to auscultation bilaterally. Abdomen: Soft with mild suprapubic tenderness to palpation. She has well-healed surgical scars, whi ch appear to be appropriately timed from her recent description of laparoscopic repair, but they appe ar to be healing without infection. She has minimal distention. No rebound. No guarding. No focal peritonitis. She has no blood in her rectum. She has some discharge in her underwear from vagina, which is difficult to tell, but appears yellowish in coloration. Extremities: No clubbing, cyanosis, edema. Skin: Warm and dry. Laboratory Exam: Reveals a white blood count 8.9, hemoglobin 12.7, hematocrit of 38.0, platelet coun t is 294, neutrophils 72%. Her sodium is 142, potassium 3.3, chloride 105, carbon dioxide 28, BUN 8, creatinine 0.6, glucose is 106, total bilirubin 0.6, direct component 0.2, AST 16, ALT 13, alkaline phosphatase 83, lipase 94. Her UA shows 20 to 50 bacteria, white blood cells 20 to 50, leukocyte est erase is 1+. She had a CT scan performed of the abdomen and pelvis. The patient has an interval pos tsurgical changes in the distal sigmoid colon. There is a bilobed fluid collection along the right a nd superior aspect of the anastomosis measuring 4.9 x 3.4 x 3.6 cm, which may reflect a postoperative seroma, hematoma, infected collection, abscess, potentially in the setting of anastomotic leak canno t be excluded. Soft tissue tract extending from the sigmoid colon to the vaginal cuff again demonstr ated may reflect residual fibrous communication. Assessment And Plan: This is a 75-year-old woman who comes in status post repair of colovaginal fist ken with a postoperative fluid collection of uncertain etiology. 1.IV fluid hydration. 2.Antibiotic coverage. 3.Serial abdominal exams. 4.Medical management. 5.We will contact Dr. Canseco to see if he is agreeable to accept the patient in transfer for postoper ative care and evaluation of her postoperative situation. I have explained the risks, benefits, and alternatives of the above stated plan. Patient agreed to the indicated. KIMBERLY/CLARITZA Voice ID: [id number]
[2020-09-12] MEDS ORDERED: Ringers Lactate 1,000 ML IV SCH (10:00)
--- NOTE | 2020-09-12 10:38 | RAD REPORT ---
EXAM DESCRIPTION: CT ABDOMEN PELVIS WITH IV CONTRAST CLINICAL HISTORY: ABD PAIN TECHNIQUE: Contiguous axial images obtained through the abdomen and pelvis following the uneventful administration of IV contrast. Coronal and sagittal reformatted images were provided. This exam was performed according to our departmental dose-optimization program, which includes autom ated exposure control, adjustment of the mA and/or kV according to patient size and/or use of iterati ve reconstruction technique. COMPARISON: 07/21/2020 FINDINGS: Lung bases: Minimal bibasilar subsegmental atelectasis/pleural parenchymal scar. Liver: Multiple cysts. Dominant cyst on the left measuring 4.4 cm. Numerous subcentimeter hypodensiti es which are too small to characterized. Gallbladder and biliary system: Unremarkable Pancreas: Unremarkable Spleen: Unremarkable Adrenals: Stable 1 mm left adrenal nodule. Kidneys: Normal renal cortical enhancement. No calculi. No hydronephrosis. Bowel: Duodenal diverticulum. New anastomosis at the distal sigmoid colon. Bilobed collection of flui d along the right and superior aspect of the anastomosis measuring approximately 4.9 x 3.4 x 3.6 cm ( series 501 images 63 through 67, series 502 images 57 through 67 and series 503 images 62 through 74) . Moderate stool within the proximal large bowel. Colonic diverticula without adjacent inflammatory c hange. Soft tissue tract extending from the sigmoid colon to the vaginal cuff (series 503 image 71). Appendix: The appendix is not definitively visualized. No findings to suggest acute appendicitis. Urinary bladder: Unremarkable Reproductive: There has been a hysterectomy. No adnexal cysts or masses are identified. Lymph nodes: No pathologically enlarged lymph nodes. Peritoneum: No free air. Vessels: Mild to moderate atherosclerotic disease. No abdominal aortic aneurysm. Abdominal wall: Scattered ventral abdominal wall port sites lower ventral abdominal wall incisional s car. Bones: Multilevel spondylosis. No acute fracture. IMPRESSION: 1. Interval postsurgical changes at the distal sigmoid colon. Bilobed collection of fl uid along the right and superior aspect of the anastomosis measuring approximately 4.9 x 3.4 x 3.6 cm which may reflect postoperative seroma/hematoma. An infected collection/abscess potentially in the s etting of an anastomotic leak cannot be excluded. 2. Soft tissues tract extending from the sigmoid colon to the vaginal cuff again demonstrated and m ay reflect a residual fistulous communication. 3. Other findings as above. Electronically signed by: Zan Celeste MD 09/11/2020 11:29 PM [employer] Due to temporary technical issues with the PACS/Fluency reporting system, reports are being signed by the in house radiologist without review as a courtesy to ensure prompt reporting. The interpreting r adiologist is fully responsible for the content of the report.
[2020-09-12] MEDS ORDERED: INSULIN -REGULAR HUMAN 50 UNIT/0.5 ML ML SQ SCH (11:30)
[2020-09-12 13:30] VITALS: BP 138/61; TEMP 98.1
[2020-09-12] MEDS ORDERED: HEPARIN 5000 UNIT/ML 1 ML VIAL SQ SCH (17:00)
[2020-09-15 16:58] VITALS: O2SAT 97
== END 2020-09-12 13:44 | disposition short-term general hospital (02) | DRG 920 ==
LOC: ER 20:51 → 2ND 09-12 01:10
PROVIDERS: ADMIT Surgery; ATTEND Surgery
DX: T81.83XA Persistent postprocedural fistula, initial encounter (principal); N82.3 Fistula of vagina to large intestine; I10 Essential (primary) hypertension; R10.9 Unspecified abdominal pain; Z88.1 Allergy status to other antibiotic agents; Z88.5 Allergy status to narcotic agent; Z88.8 Allergy status to other drugs, medicaments and biological substances; Z90.710 Acquired absence of both cervix and uterus; Z20.828 Contact with and (suspected) exposure to other viral communicable diseases
CPT/HCPCS: 36415; 74177; 80048; 80076; 81003; 81015; 82565; 83690; 85025; 87086; 87088; 94010; 96361; 96365; 96375; 99285; J2405; J2543; J3370; J7030; J7050; Q9967; U0003

== ENCOUNTER 2020-10-31 07:15 | Day surgery (SDC) | payer OTHER, MEDICARE ==
--- NOTE | 2020-10-27 16:57 | RAD REPORT ---
EXAM DESCRIPTION: RAD - Chest Pa And Lat (2 Views) - 10/27/2020 4:28 pm CLINICAL HISTORY: pre op Chest pain. COMPARISON: Chest Single View dated 07/28/2019; Chest Pa And Lat (2 Views) dated 11/04/2016; CHEST PA AND LAT 2 VIEW dated 12/30/2015; CHEST SINGLE VIEW dated 08/09/2015; Abdomen Pelvis W/Wo Contrast da shauna 10/26/2020 FINDINGS: The lungs are clear. The heart is upper limit of normal in size. No displaced fractures. IMPRESSION: No acute or concerning finding suspected.
[2020-10-27 17:00] LABS: Potassium 4.5 mmol/L (3.5-5.1)
[2020-10-27 17:03] LABS: Absolute Lymphocytes (CBC) 1.8 K/uL (0.7-4.9); Basophils % 2.5 % (0-1.3); Hematocrit 41.6 % (36.0-45.0); Lymphocytes % 32.3 % (15.3-44.8); MPV 8.6 fL (7.6-11.3); RBC Red Blood Cell Count 4.93 M/uL (3.86-4.86)
[2020-10-27 17:08] LABS: Protime INR 0.99
--- OUTSIDE RECORDS SUMMARY | 2020-10-31 07:18 | XMS REPORT | Clinical Summary ---
:1945 Author Organization [facility] Address [address] [place] [address] Care Team Providers Name Role Phone System, Not In DIRECTOR OF PRIMARY-C Primary Care Provider Unavailable Allergies Active Allergy [...] Acti ve tartrate mouth every (LOPRESSOR) 25 MG evening. tablet HYDROcodone-aceta Take 1 tablet 0 05/02/2016 02 Discontinued minophen (NORCO) by mouth every 0 (Stop Taking at 7.5-325 mg per 6 (six) hours D ischarge) tablet as needed for severe pain. traMADoL (ULTRAM) Take 50 mg by 0 09/14/20 2 Discontinued 50 mg mouth every 6 0 (Stop Taking at tabletIndications (six) hours as Discharge) : acute pain needed for moderate pain .acute pain. amoxicillin-pot Take 1 tablet 20 tablet 0 09/14/2020 clavulanate (500 mg total) 0 (Augmentin) by mouth 2 500-125 mg per (two) times a tablet day for 10 days. Active Problems Problem Noted Date Preop examination 08/18/2020 Resolved Problems Problem Noted Date Resolved Date Pelvic abscess in female 09/12/2020 09/14/2020 Encounters Date Type Specialty Care Team Description 09/12/2020 - Hospital Encounter General Surgery [facility] [place] 09/14/2020 MD Ronny 09/12/2020 Travel 08/18/2020 Surgery General Surgery [facility] [place] XI ROBOTI C ASSISTED MD Ronny LAPAROSCOPIC TAKEDOWN OF COLOVAGINAL FIS CARO , SPLENIC FLEXT URE LOW ANTERIOR RESECTION AND I CG INJECTION 08/18/2020 Anesthesia Event General Surgery Zonia Sneed MD Everitt, Amanda W., MONITOR CAR OPERATOR 08/18/2020 - Hospital Encounter General Surgery [facility] [place] Pre op examination; 08/20/2020 MD Ronny 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 08/15/2020 Pre-Admission Pre-Admission [facility] [place] Preop exam ination Testing Testing MD Ronny (Primary Dx) 08/15/2020 Travel 08/10/2020 Travel 07/27/2020 Travel after 10/31/2019 Surgical History Surgery Date Site/Laterality Comments BACK [...] INJECTION; Surg sundeep: Rk [place] MD; Location: [facility]; Service: Co noemi and Rectal Surgery; Laterality: N/A; Medical History Medical History Date Comments Diverticulosis Diverticulitis of colon Lower back pain History of general anesthesia NHAP Exercise involving walking COUPLE TIMES PER WEEK 45 MINUTES-1 HOUR. 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 GOES UP AND DOWN [...] A 1/2 [facility] Sex Assigned at Date Recorded Not on file Job Start Date Occupation Industry Not on file Not on file Not on file Last Filed Vital Signs Vital Sign Reading Time Taken Comments Blood Pressure 110/65 09/14/2020 11:29 AM [employer]PER[employer] Pulse 76 09/14/2020 11:29 AM [employer] Temperature 36.8 C (98.3 F) 09/14/2020 11:29 AM [employer] Respiratory Rate 18 09/14/2020 11:29 AM [employer] Oxygen Saturation 98% 09/14/2020 11:29 AM [employer] SUPER[employer]OR Inhaled Oxygen Concentration - - Weight 51.2 kg (112 lb 12.8 oz) 08/18/2020 6:33 AM [employer] SUPER[employer]OR Height 165.1 cm (5' 5") 08/18/2020 6:33 AM [employer] SUPER[employer]OR Body Mass Index 18.77 08/18/2020 6:33 AM [employer] SUPERVISOR Plan of Treatment Health Maintenance Due Date Last Done Comments COVID-19 VACCINE (1 of 2) 1961 BREAST CANCER SCREENING 1997 COLONOSCOPY SCREENING 1997 SHINGLES VACCINES (#1) 1997 65+ PNEUMOCOCCAL VACCINE (1 of 1 - PPSV23) 08/05/201209/06 INFLUENZA VACCINE 05/07/2020 09/06/2019 Procedures Procedure Name Priority Date/Time Associated Comments Diagnosis FL VAGINOGRAM Routine 09/13/2020 5:41 Results fo r this PM [employer]VIS[employer] procedure are i n the results section. HC COMPLETE BLD COUNT Routine 09/13/2020 4:18 Re sults for this W/AUTO DIFF AM [employer] procedure are i n the results section. ESTIMATED GFR Routine 09/13/2020 4:00 Results fo r this AM [employer] procedure are i n the results section. BASIC METABOLIC PANEL Routine 09/13/2020 4:00 Re sults for this AM [employer]PER[employer] procedure are i n the results section. PARTIAL THROMBOPLASTIN STAT 09/12/2020 3:41 R esults for this TIME (PTT) PM [employer] procedure are i n the results section. PROTHROMBIN TIME WITH STAT 09/12/2020 3:41 Re sults for this INR PM [employer]PER[employer] procedure are i n the results section. HC COMPLETE BLD COUNT STAT 09/12/2020 3:41 Re sults for this W/AUTO DIFF PM [employer]PER[employer] procedure are i n the results section. ESTIMATED GFR STAT 09/12/2020 3:22 Results fo r this PM [employer]PERVISOR procedure are i n the results section. HEPATIC FUNCTION PANEL STAT 09/12/2020 3:22 R esults for this PM [employer]PER[employer] procedure are i n the results section. PHOSPHORUS LEVEL STAT 09/12/2020 3:22 Results for this PM [employer]PER[employer]OR procedure are i n the results section. MAGNESIUM LEVEL STAT 09/12/2020 3:22 Results for this PM [employer]PERVIS[employer] procedure are i n the results section. BASIC METABOLIC PANEL STAT 09/12/2020 3:22 Re sults for this PM [employer]PER[employer] procedure are i n the results section. CT ABD/PELVIC EXTERNAL Routine 09/11/2020 10:46 R esults for this STUDY PM [employer]PER[employer] procedure are i n the results section. ESTIMATED GFR Routine 08/20/2020 4:12 Results fo r this AM [employer] SUPER[employer]OR procedure are i n the results section. PHOSPHORUS LEVEL Routine 08/20/2020 4:12 Results for this AM [employer] SUPERVISOR procedure are i n the results section. MAGNESIUM LEVEL Routine 08/20/2020 4:12 Results for this AM [employer] SUPERVISOR procedure are i n the results section. BASIC METABOLIC PANEL Routine 08/20/2020 4:12 Re sults for this AM [employer] SUPERVISOR procedure are i n the results section. HC COMPLETE BLD COUNT Routine 08/20/2020 4:12 Re sults for this W/AUTO DIFF AM [employer] SUPERVISOR procedure are i n the results section. ESTIMATED GFR Routine 08/19/2020 4:10 Results fo r this AM [employer] SUPERVISOR procedure are i n the results section. PHOSPHORUS LEVEL Routine 08/19/2020 4:10 Results for this AM [employer] SUPERVISOR procedure are i n the results section. MAGNESIUM LEVEL Routine 08/19/2020 4:10 Results for this AM [employer] SUPERVISOR procedure are i n the results section. BASIC METABOLIC PANEL Routine 08/19/2020 4:10 Re sults for this AM [employer] SUPERVISOR procedure are i n the results section. HC COMPLETE BLD COUNT Routine 08/19/2020 4:10 Re sults for this W/AUTO DIFF AM [employer]PER[employer]OR procedure are i n the results section. SURGICAL PATHOLOGY Routine 08/18/2020 2:41 Resul ts for this REQUEST PM [employer] procedure are i n the results section. ARTERIAL LINE Routine 08/18/2020 8:13 Results fo r this AM [employer]PER[employer]OR procedure are i n the results section. ANESTHESIA INTUBATION Routine 08/18/2020 8:12 Re sults for this AM [employer] SUPERVISOR procedure are i n the results section. RESECTION, COLON, LOW 08/18/2020 7:28 Fistula of vagi na ANTERIOR, LAPAROSCOPIC, AM [employer] SUPERVISOR to large intestin e ROBOT-ASSISTED Case Notes XI DAVINCI, XI DAVINCI C OMING FROM [place] [place] , MODIFIED LITHOTOMY POSITION , [place] ACCEPTED FIRST STAR T ON 08/18 @ 1131 KMM Special Needs XI DAVINCI, XI NANYINCI C OMING FROM [place] [place] , TF ~ 1100, REQ 0730 START, MODIFIED LITHOTOMY POSITION ABO AND RH Routine 08/18/2020 6:45 AM Preop examination Res ults for this CONFIRMATION [employer]PERVISOR procedure are i n the results section. COVID-19 QUALITATIVE Routine 08/15/2020 1:49 PM Preop examina tion Results for this PCR [employer]PER[employer]OR procedure are i n the results section. ECG PRE/POST OP Routine 08/15/2020 1:40 PM Preop examination Results for this [employer]PER[employer]OR procedure are i n the results section. ESTIMATED GFR Routine 08/15/2020 1:19 PM Results for this [employer]PER[employer]OR procedure are i n the results section. HC COMPLETE BLD COUNT Routine 08/15/2020 1:19 PM Preop examin ation Results for this W/AUTO DIFF [employer]PERVISOR procedure are i n the results section. COMPREHENSIVE Routine 08/15/2020 1:19 PM Preop examination Re sults for this METABOLIC PANEL [employer]PERVISOR procedure ar e in the results section. HEMOGLOBIN A1C Routine 08/15/2020 1:19 PM Preop examination R esults for this [employer]PER[employer]OR procedure are i n the results section. TYPE AND SCREEN Routine 08/15/2020 1:19 PM Preop examination Results for this [employer]PER[employer]OR procedure are i n the results section. after 10/31/2019 Results FL Vaginogram (09/13/2020 5:41 PM P[employer] SUPERVISOR) Specimen Narrative Performed At Procedure: FL VAGINOGRAM HM [facility] REFERRING PHYSICIAN: RK COUGHLIN HISTORY: Evaluate for rectovaginal fistula - patient w ith purulent vaginal discharge after low anterior res ection COMPARISON: None TECHNIQUE: The vaginal was infiltrated by a balloon tip catheter. Under fluoroscopic observation, contrast was injected into t he vagina and multiple fluoroscopic spot images and po st contrast overhead obtained. Fluoroscopy time: 1.1 minute. TPD: 26.96 mGy. FINDINGS: Injected contrast distending the opacified vagina. The re is no evidence of contrast seen of the adjacent rectosigmoid colon. N o extravasation of contrast is seen. IMPRESSION: No evidence of rectovaginal fistula. [id number] Procedure Note Hm Interface, Radiology Results Incoming - 09/13/2020 6:43 PM [employer] SUPERVISOR Procedure: FL VAGINOGRAM REFERRING PHYSICIAN: RK COUGHLIN HISTORY: Evaluate for rectovaginal fistu la - patient with purulent vaginal discharge after low anterior resection COMPARISON: None TECHNIQUE: The vaginal was infiltrated by a balloon tip catheter. Under fluoroscopic observation, contrast was injected into the vagina and multiple fluoroscopic spot images and post contrast overhead obtained. Fluoroscopy time: 1.1 minute. TPD: 26.96 mGy. FINDINGS: Injected contrast distending the opacifi ed vagina. There is no evidence of contrast seen of the adjacent rectosigmoid colon. No extravasation of contrast is seen. IMPRESSION: No evidence of rectovaginal fistula. [id number] Performing Organization Address City/State/ZIP Code [facility] e Number [facility] [address] [place] [address] CBC with platelet and differential (09/13/2020 4:18 AM P[employer]ER[employer] SUPERVISOR)Only the most recent of5 resultswithin the time period is included. WBC 7.69 4.50 - 11.00 [facility] k/uL [facility] RBC 4.33 4.20 - 5.50 [facility] m/[facility] HGB 12.0 12.0 - 16.0 [facility] g/dL [facility] HCT 37.9 37.0 - 47.0 % [facility] MCV 87.5 82.0 - 100.0 [facility] MCH 27.7 27.0 - 34.0 pg [facility] MCHC 31.7 31.0 - 37.0 [facility] g/dL [facility] RDW - SD 44.6 37.0 - 55.0 fL [facility] MPV 10.6 8.8 - 13.2 fL [facility] Platelet count 254 150 - 400 k/uL [facility] Nucleated RBC 0.00 /100 WBC [facility] Neutrophils 64.1 39.0 - 69.0 % [facility] Lymphocytes 17.8 (L) 25.0 - 45.0 % [facility] Monocytes 10.4 (H) 0.0 - 10.0 % [facility] Eosinophils 5.7 (H) 0.0 - 5.0 % [facility] Basophils 1.7 (H) 0.0 - 1.0 % [facility] Immature granulocytes 0.3Comment: 0.0 - 1.0 % [facility] "Immature HOSPITAL granulocytes" (promyelocytes , myelocytes, metamyelocytes ) Specimen Plasma Performing Organization Address City/[facility] Phon e Number [facility] DEPARTMENT OF PATHOLOGY AND [address] [place] [address] [phone] [address] Estimated GFR (09/13/2020 4:00 AM [employer]ER[employer] SUPERVISOR)Only the most recent of5 resultswithin the time period is included. Estimated GFR 90 mL/min/1.73 [facility] Comment: m2 HOSPITAL Catergory Units Interpretation G1 [...] in 2014. Specimen Plasma Performing Organization Address City/[facility] Phon e Number [facility] DEPARTMENT OF PATHOLOGY AND [address] [place], [place] [phone] [address] [address] Basic metabolic panel (09/13/2020 4:00 AM [employer] SUPERVISOR)Only the most recent of4 results within the time period is included. Pathologist Sig nature Sodium 139 135 - 148 mEq/L [facility] L Potassium 4.1 3.5 - 5.0 mEq/L [facility] L Chloride 107 98 - 112 mEq/L [facility] CO2 20 (L) 24 - 31 mEq/L [facility] Anion gap 12@ANIO 7 - 15 mEq/L [facility] BUN 6 (L) 8 - 23 mg/dL [facility] Creatinine 0.61 0.50 - 0.90 mg/dL [facility] Glucose 82 65 - 99 mg/dL [facility] Calcium 8.8 8.8 - 10.2 mg/dL [facility] Specimen Plasma Performing Organization Address City/[facility]/ZIP [facility] Phon e Number [facility] DEPARTMENT OF PATHOLOGY AND [address] [place] [address] [phone] [address] Partial thromboplastin time, activated (09/12/2020 3:41 PM [employer] SUPERVISOR) PTT 26.9 23.0 - 36.0 [facility] Comment: [facility] PTT therapeutic range for unfractionated heparin is 61.0-112.0 seconds which corresponds to Anti-Xa 0.3-0.7 U/ml. Specimen Blood Performing Organization Address City/[facility] Phon e Number [facility] DEPARTMENT OF PATHOLOGY AND [address] [place] [address] [place] [address] Prothrombin time with INR (09/12/2020 3:41 PM [employer] SUPERVISOR) Prothrombin time 15.6 (H) 11.5 - 14.5 [facility] INR 1.2 [facility] Comment: [facility] International Normalized Ratio (INR) is a therapeu [facility] monitoring tool for patients who are stable on oral anticoagulant therapy. An INR of 2.0-3.0 is suggested for deep vein thrombosis/pulmonary embolism. Specimen Blood Performing Organization Address City/[facility] Phon e Number [facility] DEPARTMENT OF PATHOLOGY AND [address] [place] [address] [place] [phone] Phosphorus level (09/12/2020 3:22 PM [employer] SUPERVISOR)Only the most recent of3 resultswithin the time period is included. Pathologist Sig nature Phosphorus 2.9 2.4 - 4.5 mg/dL [facility] Specimen Plasma Performing Organization Address City/[facility]/ZIP [facility] Phon e Number [facility] DEPARTMENT OF PATHOLOGY AND [address] [place] [address] [place] [phone] Magnesium level (09/12/2020 3:22 PM [employer] SUPERVISOR)Only the most recent of3 resultswithin the time period is included. Pathologist Sig nature Magnesium 2.3 1.6 - 2.4 mg/dL [facility] L Specimen Plasma Performing Organization Address City/[facility] Phon e Number [facility] DEPARTMENT OF PATHOLOGY AND [address] [place] [address] [phone] [address] Hepatic function panel (09/12/2020 3:22 PM P[employer] SUPERVISOR) Albumin 3.2 (L) 3.5 - 5.0 [facility] g/dL [facility] Total bilirubin 0.6 0.0 - 1.2 [facility] mg/dL [facility] Bilirubin direct <0.2 0.0 - 0.3 [facility] mg/dL [facility] Alkaline phosphatase 75 35 - 104 U/L [facility] Protein 7.4 6.3 - 8.3 [facility] Comment: g/dL HOSPITAL - 4.6-7.0 g/dL 1 week 4.4-7.6 g/dL 7 months-1year 5.1-7.3 g/dL 1-2 years 5.6-7.5 g/dL >3 years 6.0-8.0 g/dL 18-150 6.3-8.3 g/dL ALT 12 5 - 50 U/L [facility] AST 18 10 - 35 U/L [facility] Specimen Plasma Performing Organization Address [facility] Phon e Number [facility] DEPARTMENT OF PATHOLOGY AND [address] [place] [address] [phone] [address] [address] Abd/Pelvic External Study (09/11/2020 10:46 PM P[employer]ERKS SUPERVISOR) Specimen Narrative Performed At This exam was not acquired at a [facility] t facility and has not been [facility] interpreted by a [facility] Provider. T he exam was imported into our imaging system. Performing Organization Address City/[facility] Phon e Number [facility] [address] [place] [address] Surgical pathology request (08/18/2020 2:41 PM P[employer]ER[employer] SUPERVISOR) [facility] DEPARTMENT OF PATHOLOGY AND GENOMIC MEDICINE Surgical pathology See link below [facility] DEPARTMENT OF report for PDF Lab PATHOLOGY AND Report GENOMIC MEDICINE Result status This is Final [facility] DEPARTMENT OF Report for PATHOLOGY AND [id number] GENOMIC MEDICINE Specimen Performing Organization Address City/[facility]/ZIP Code Phon e Number [facility] DEPARTMENT OF PATHOLOGY AND [address] [place] [phone] [facility] MEDICINE Arterial line (08/18/2020 8:13 AM P[employer]ERKS SUPERVISOR) Narrative Performed At Zonia Sneed MD 08/18/2020 [...] Unable to assess Airway (08/18/2020 8:12 AM PERSON[employer]ERKS SUPERVISOR) Narrative Performed At Zonia Sneed MD 08/18/2020 [...] ABO and Rh confirmation (08/18/2020 6:45 AM P[employer]ERKS SUPERVISOR) Pathologist Sig nature ABO grouping O [facility] Rh type POS [facility] Specimen Plasma Performing Organization Address City/State/ZIP Code Phon e Number [facility] DEPARTMENT OF PATHOLOGY AND [address] [place] [address] [phone] [address] COVID-19 qualitative PCR (08/15/2020 1:49 PM PERSON[employer]ERKS SUPERVISOR) Interpretation Negative results do not prec lude 2019-nCoV infection and should not be used as the sole basis for treatment or other patient management decisions. Negative results must be combined with clinical observations, patient history, and epidemiological [facility] information. [facility] COVID-19 qualitative Not-Detected Not-Detecte [facility] PCR result d [facility] COVID-19 qualitative See link below for [facility] PCR PDF Lab [facility] ReportComment: Case HOSPITAL Number: [id number] Specimen Nasal swab Performing Organization Address [facility] Phon e Number [facility] DEPARTMENT OF PATHOLOGY AND [address] [place] [address] [phone] [address] [facility] ECG Pre/Post Op (08/15/2020 1:40 PM P[employer]ER[employer] SUPERVISOR) Pathologist Sig nature Ventricular rate 65 [facility] Atrial rate 65 [facility] IL interval 180 [facility] QRSD interval 88 [facility] QT interval 448 [facility] QTC interval 465 [facility] P axis 1 78 [facility] QRS axis 1 -2 [facility] T wave axis 81 [facility] EKG impression Normal sinus [facility] rhythm-Septal infarct , age undetermined-Abnormal ECG-No previous ECGs available-Electronicall y Signed By Feliz Palma MD ([id number]) on 08/15/2020 4:00:08 PM Specimen Narrative Performed At This result has an attachment that is no t available. Performing Organization Address City/State/ZIP [facility] Phon e Number [facility] MUSE [address] [place] [phone] Type and screen (08/15/2020 1:19 PM P[employer]ER[employer] SUPERVISOR) Pathologist Sig nature ABO grouping O [facility] Rh type POS [facility] Antibody screen (gel) NEG [facility] Specimen Plasma Performing Organization Address City/State/[facility] Phon e Number [facility] DEPARTMENT OF PATHOLOGY AND [address] [place] [address] [phone] [address] Hemoglobin A1c (08/15/2020 1:19 PM PERSONN[employer]ERKS SUPERVISOR) Hemoglobin A1C 5.8 (H) 4.0 - 5.6 % [facility] Comment: HOSPITAL HbA1c cutoffs for diagnosing diabetes: [...] Organization Address City/State/ZIP Code Phon e Number [facility] DEPARTMENT OF PATHOLOGY AND [address] [place], [place] [address] GENOMIC MEDICINE [facility] [address] [place] [address] Comprehensive metabolic panel (08/15/2020 1:19 PM PERSONN[employer]ERKS SUPERVISOR) Sodium 145 135 - 148 [facility] mEq/L [facility] Potassium 3.8 3.5 - 5.0 [facility] mEq/L [facility] Chloride 106 98 - 112 [facility] mEq/L [facility] CO2 27 24 - 31 mEq/L [facility] Anion gap 12@ANIO 7 - 15 mEq/L [facility] BUN 9 8 - 23 mg/dL [facility] Creatinine 0.99 (H) 0.50 - 0.90 [facility] mg/dL HOSPITAL Glucose 127 (H) 65 - 99 mg/dL [facility] Calcium 8.8 8.8 - 10.2 [facility] mg/dL [facility] Protein 6.9 6.3 - 8.3 [facility] Comment: g/dL HOSPITAL - [place] 4.6-7.0 g/dL 1 week 4.4-7.6 g/dL 7 months-1year 5.1-7.3 g/dL 1-2 years 5.6-7.5 g/dL >3 years 6.0-8.0 g/dL 18-150 6.3-8.3 g/dL Albumin 3.5 3.5 - 5.0 [facility] g/dL [facility] A/G ratio 1.0 0.7 - 3.8 [facility] Alkaline phosphatase 59 35 - 104 U/L [facility] AST 20 10 - 35 U/L [facility] ALT 12 5 - 50 U/L [facility] Total bilirubin 0.4 0.0 - 1.2 [facility] mg/dL HOSPITAL Specimen Plasma Performing Organization Address City/State/ZIP Code Phon e Number [facility] DEPARTMENT OF PATHOLOGY AND [address] [place], [place] [address] GENOMIC MEDICINE [facility] [address] [place] [address] after 10/31/2019 Insurance Payer Benefit Plan / Subscriber ID Effective Dates Phone Addre ss Type Group MEDICARE MEDICARE PART A [id number] 2005-Present [place], [place] Medicare AND B AARP AARP SUPPLEMENT [id number] 2012-[employer] Commercial t Advance Directives For more information, please contact: [phone] Type Date Recorded Patient Occupational Hygienist Explanati on Advance Directives, Living Will and Medical Power of Wetlands Technician Code Status Date Activated Date Inactivated Comments Full Code 08/18/2020 2:18 PM 08/20/2020 10:52 PM Code Status decision reached by: Patient
--- OUTSIDE RECORDS SUMMARY | 2020-10-31 07:18 | XMS REPORT | Continuity of Care Document ---
:1945 Author Organization [facility] t Address [address] [place] [address] Care Team Providers Name Role Phone System ULTRASOUND TECH-C, Not In Primary Care Physician Unavailable Ronny Madrid MD Attending Clinician Naren BLAIR Attending Clinician Toyin Faith APRN Attending Clinician JULIUS Admitting Clinician Unavailable Payers Payer Name Policy Type Policy Effective Date Expiration Date Sour ce Number MEDICAREMEDICARE PART [id number] 2005 Darryl Johnson AND 00:00:00 [facility]oroastrian[facility] [id number] [facility] [place] [place] [id number] 2012 [facility] [id number] 00:00:00 Met pagan 2012-PresentComm ercial Problems Condition Condition Condition Status Onset Resolution Last Treating Co mments Source Name Details Category Date Date Treatment Clinician Date Preop Preop Disease Active 2019-10 [facility] [place] examinatio examinatio 10-18 Me thodi n n 00:00: st 00 Pelvic Pelvic Disease Resolve 2019-102020-09-14 2020-09-14 [facility] [place] abscess in abscess in d 2-07 00:00:00 14:27:00 Methodi female female 00:00: st 00 Allergies, Adverse Reactions, Alerts Allergy Allergy Status Severity Reaction(s) Onset Inactive Treating Comm ents Source Name Type Date Date Clinician Corticos Propensi Active Palpitations Can marilynn e Brock teroids ty to 05-03 steroid Methodi (Glucoco adverse 00:00: pills in st rticoids reaction 00 small ) s to amounts drug Meperidi Propensi Active Shortness Of [facility] [place] ne ty to Breath 05-03 Methodi adverse 00:00: st reaction 00 s to drug Morphine Propensi Active Palpitations Brock ty to 05-03 Methodi adverse 00:00: st reaction 00 s to drug Quinolon Propensi Active Shortness Of [facility] [place] es ty to Breath 05-03 Methodi adverse 00:00: st reaction 00 s to drug Sulfamet Propensi Active Rash [place] hoxazole ty to 05-03 Methodi adverse 00:00: st reaction 00 s to drug Family History Family Member Diagnosis Comments Start Date Stop Date Source Natural father Aortic aneurysm [place] [facility]oroastrianism Natural mother COPD [facility] [facility]odist Social History Social Habit Start Date Stop Date Quantity Comments Source History of tobacco Current smoker Darryl spaulding use Zoroastrianism Sex Assigned At [facility] Zoroastrianism Cigarettes smoked 2020-08-22 2020-08-22 [facility] [place] current (pack per 00:00:00 00:00:00 Methodi ) - Reported Cigarette 2020-08-22 2020-08-22 [facility] [place] pack-years 00:00:00 00:00:00 Zoroastrianism Tobacco use and 2020-08-22 2020-08-22 Never used [facility] exposure 00:00:00 00:00:00 Zoroastrianism Alcohol intake 2020-08-22 2020-08-22 Ex-drinker [facility] [place] 00:00:00 00:00:00 (finding) Zoroastrianism Alcohol Comment 2020-08-13 2020-08-13 YEARLY A / [facility] [place] 00:00:00 00:00:00 GL[facility] OF WINE AT [facility] Smoking Status Start Date Stop Date Source Former smoker 2020-08-22 00:00:00 2020-08-22 00:00:00 [place] Zoroastrianism Medications Ordered Filled Start Stop Current Ordering Indication Dosage Frequency Signature Comments Components Source Medication Medication Date Date Medication? Clinician (SIG) Name Name traMADoL 2019-10- No acute pain 50mg Q6H Take 50 mg Vinod (ULTRAM) 50 11-15 by mouth Met hodi mg tablet 17:42: 00:[address] 45 :00 (six) hours as needed for moderate pain .acute pain. amoxicillin 2019-10- No 500mg Q.5D Take 1 [place] -pot 11-15 tablet Methodi clavulanate 00:00: 23:59 ([address] (Augmentin) 00 :00 total) by 500-125 mg mouth 2 per tablet (two) times a day for 10 days. HYDROcodone 2019- No 1{tbl} Q6H Take 1 [place] -acetaminop 7-27 11-14 tablet by kelle юлия (NORCO) 00:00: 00:[address] 7.5-325 mg 00 :00 every 6 per tablet (six) hours as needed for severe pain. metoprolol Yes 25mg QD Take 25 mg [place] tartrate 6-14 by mouth Methodi (LOPRESSOR) 00:00: every st 25 MG 00 evening. tablet Vital Signs Vital Name Observation Time Observation Value Comments Source Systolic blood 2020-09-14 11:29:17 110 mm[Hg] Rochelle n Zoroastrianism pressure Diastolic blood 2020-09-14 11:29:17 65 mm[Hg] Daniel on Zoroastrianism pressure Heart rate 2020-09-14 11:29:17 76 /min Vinod Hung Body temperature 2020-09-14 11:29:17 36.83 Na Lyndon ton Zoroastrianism Respiratory rate 2020-09-14 11:29:17 18 /min Lyndon ton Zoroastrianism Oxygen saturation in 2020-09-14 11:29:17 98 /min Vinod Hung Arterial blood by Pulse oximetry Body height 2020-08-18 06:33:00 165.1 cm Vinod Hung Body weight 2020-08-18 06:33:00 51.166 kg Vinod Hung BMI 2020-08-18 06:33:00 18.77 kg/m2 Vinod Hung Procedures Procedure Date / Time Performing Clinician Source Performed FL VAGINOGRAM 2020-09-13 17:41:27 Rk Madrid HC COMPLETE BLD COUNT 2020-09-13 04:18:00 Rk Madrid W/AUTO DIFF Ronny BASIC METABOLIC PANEL 2020-09-13 04:00:00 Rk Madrid ESTIMATED GFR 2020-09-13 04:00:00 Rk Madrid HC COMPLETE BLD COUNT 2020-09-12 15:41:00 Rk Madrid W/AUTO DIFF Ronny PROTHROMBIN TIME WITH INR 2020-09-12 15:41:00 Rk Madrid PARTIAL THROMBOPLASTIN 2020-09-12 15:41:00 Rk Madrid Zoroastrianism TIME (PTT) Ronny BASIC METABOLIC PANEL 2020-09-12 15:22:00 Rk Madrid MAGNESIUM LEVEL 2020-09-12 15:22:00 Julius Rk Vinod Jefferson PHOSPHORUS LEVEL 2020-09-12 15:22:00 Julius, Rk Vinod Jefferson HEPATIC FUNCTION PANEL 2020-09-12 15:22:00 JuliusRk haile ESTIMATED GFR 2020-09-12 15:22:[address] ABD/PELVIC EXTERNAL 2020-09-11 22:46:00 Iris Kidd Zoroastrianism STUDY HC COMPLETE BLD COUNT 2020-08-20 04:12:00 BernabeIris W/AUTO DIFF BASIC METABOLIC PANEL 2020-08-20 04:12:00 BernabeIris Zoroastrianism MAGNESIUM LEVEL 2020-08-20 04:12:00 Bernabe Iris Dillard ethodist PHOSPHORUS LEVEL 2020-08-20 04:12:00 Bernabe Iris Brock Zoroastrianism ESTIMATED GFR 2020-08-20 04:12:00 BernabeIris ethodist HC COMPLETE BLD COUNT 2020-08-19 04:10:00 BernabeIris Zoroastrianism W/AUTO DIFF BASIC METABOLIC PANEL 2020-08-19 04:10:00 BernabeKaterynaIris Denys dumont Zoroastrianism MAGNESIUM LEVEL 2020-08-19 04:10:00 Bernabe Iris Brock M ethodist PHOSPHORUS LEVEL 2020-08-19 04:10:00 BernabeKaterynaIriswallace Maddenh Brock Zoroastrianism ESTIMATED GFR 2020-08-19 04:10:00 BernabeIris ethodist SURGICAL PATHOLOGY REQUEST 2020-08-18 14:41:00 Rk Madrid ARTERIAL LINE 2020-08-18 08:13:12 Zonia Sneed odist ANESTHESIA INTUBATION 2020-08-18 08:12:47 Zonia Sneed RESECTION, COLON, LOW 2020-08-18 07:28:00 Rk Madrid ANTERIOR, LAPAROSCOPIC, Ronny ROBOT-ASSISTED ABO AND RH CONFIRMATION 2020-08-18 06:45:00 Farnaz Faith COVID-19 QUALITATIVE PCR 2020-08-15 13:49:00 Rk Madrid ECG PRE/POST OP 2020-08-15 13:40:43 Farnaz Faith ethodist TYPE AND SCREEN 2020-08-15 13:19:00 Farnaz Faithodi HEMOGLOBIN A1C 2020-08-15 13:19:00 Farnaz Faithst COMPREHENSIVE METABOLIC 2020-08-15 13:19:00 Farnaz Faith PANEL HC COMPLETE BLD COUNT 2020-08-15 13:19:00 Farnaz Faith W/AUTO DIFF ESTIMATED GFR 2020-08-15 13:19:00 Farnaz Faith ethodi Plan of Care Planned Activity Planned Date Details Comments Source Future Scheduled 2020-05-07 INFLUENZA VACCINE Rochelle arciniega Zoroastrianism Test 00:00:00 [code = INFLUENZA VACCINE] Future Scheduled 2012 65+ PNEUMOCOCCAL Vinod Zoroastrianism Test 00:00:00 VACCINE (1 of 1 - PPSV23) [code = 65+ PNEUMOCOCCAL VACCINE (1 of 1 - PPSV23)] Future Scheduled 1997 BREAST CANCER Vinod [facility] Test 00:00:00 SCREENING [code = BREAST CANCER SCREENING] Future Scheduled 1997 COLONOSCOPY SCREENING [facility] Zoroastrianism Test 00:00:00 [code = COLONOSCOPY SCREENING] Future Scheduled 1997 SHINGLES VACCINES (#1) elias Zoroastrianism Test 00:00:00 [code = SHINGLES VACCINES (#1)] Future Scheduled 1961 COVID-19 VACCINE (1 of H elias Zoroastrianism Test 00:00:00 2) [code = COVID-19 VACCINE (1 of 2)] Encounters Start End Encounter Admission Attending Care Care Encounter Source Date/Time Date/Time Type Type Clinicians Facility Department ID 2020-09-12 2020-09-14 Inpatient JULIUS, [facility] [id number] [facility] [place] 00:00:00 00:00:00 RK [address] 2020-08-18 2020-08-20 Inpatient JULIUS, [facility] [id number] [place] 00:00:00 00:00:00 RK [address] 2020-08-15 2020-08-15 Outpatient JULIUS, [facility] [id number] [place] 00:00:00 00:00:00 RK [address] Results Test Description Test Time Test Results Result Source Comments Comments FL Vaginogram [facility], Radiology [facility] [place] 8 Results Incoming - Method ist 18:40:28 09/13/2020 6:43 PM CSTProcedure: FL VAGINOGRAMREFERRING PHYSICIAN: RK JEFFERSON COURSEYHISTORY: Evaluate for rectovaginal fistula - patient with purulent vaginal discharge after low anterior resectionCOMPARISON:Non eTECHNIQUE:The vaginal was infiltrated by a balloon tip catheter. Under fluoroscopic observation, contrast was injected into the vagina and multiple fluoroscopic spot images and post contrast overhead obtained.Fluoroscopy time: 1.1 minute.TPD: 26.96 mGy.FINDINGS:Injected contrast distending the opacified vagina. There is no evidence of contrast seen of the adjacent rectosigmoid colon. No extravasation of contrast is seen.IMPRESSION:No evidence of rectovaginal fistula.[id number] Basic metabolic panel 2020-09-13 06:13:51 Test Item Value Reference Range Interpretation Comme nts Sodium (test code = 2951-2) 139 135- 148 mEq/L Potassium (test code = 2823-3) 4.1 3.5- 5.0 mEq/L Chloride (test code = 2075-0) 107 98- 112 mEq/L CO2 (test code = 2027-9) 20 24- 31 mEq/L L Anion gap (test code = 09202-9) 12@ANIO 7- 15 mEq/L BUN (test code = 3094-0) 6 mg/dL 8-23 L Creatinine (test code = 2160-0) 0.61 mg/dL 0.5-0.9 Glucose (test code = 2345-7) 82 mg/dL 65-99 Calcium (test code = 80305-2) 8.8 mg/dL 8.8-10.2 Lab Interpretation (test code = 82119-9) Abnormal Brock MethodistEstimated [id number] 06:13:51 Test Item Value Reference Range Interpretation Comments Estimated GFR (test 90 mL/min/1.73 m2 Isai corrales Units code = 5488) InterpretationG 1 >=90 Normal or highG2 60-89 Mildly sztnaynygL8m 45-59 Mildly to mode rately ljzfuxqqfT4i 30-44 Moderately to severely decreasedG4 15-29 Severely decre asedG5 <15 Kidn ey failureThe eGFR was calculated matias jennings the Chronic Kidney Disease Epidemiology Co llaboration (CKD-EPI) equat ion. Interpretation is based on recommendations of the National Kidney Foundation-Kidn ey Disease Outcomes Qualit y Initiative (NKF-KDOQI) pub lished in 2014. [facility] [place] MethodistCBC with platelet and [id number] 05:19:31 Test Item Value Reference Range Interpretation Comments WBC (test code = 33117-8) 7.69 4.50- 11.00 k/uL RBC (test code = 12135-3) 4.33 m/uL 4.2-5.5 HGB (test code = 718-7) 12.0 g/dL 12-16 HCT (test code = 4544-3) 37.9 % 37-47 MCV (test code = 787-2) 87.5 fL 82-100 MCH (test code = 785-6) 27.7 pg 27-34 MCHC (test code = 786-4) 31.7 g/dL 31-37 RDW - SD (test code = 44.6 fL 37-55 84999-6) MPV (test code = 63359-8) 10.6 fL 8.8-13.2 Platelet count (test code 254 150- 400 k/uL = 47284-8) Nucleated RBC (test code 0.00 /100 WBC = 81830-4) Neutrophils (test code = 64.1 % 39-69 31917-6) Lymphocytes (test code = 17.8 % 25-45 L 72986-8) Monocytes (test code = 10.4 % 0-10 H 58036-1) Eosinophils (test code = 5.7 % 0-5 H 75495-7) Basophils (test code = 1.7 % 0-1 H 29474-6) Immature granulocytes 0.3 % 0-1 "Immat ure (test code = 23446-4) granul ocytes" (promyelocytes, myelocytes, metamyelocytes) Lab Interpretation (test Abnormal code = 73311-4) [facility] [place] MethodistCT Abd/Pelvic External [id number] 20:52:20This exam was not acquired at a Zoroastrianism facility and has not been interpreted by a Zoroastrianism Provider. The exam was imported into our imaging system.[facility] Partial thromboplastin time, [id number] 16:21:06 Test Item Value Reference Range Interpretation Comments PTT (test code = 26.9 23.0- 36.0 [place] [address]-0) unfractionated heparin is61.0-112.0 se conds which corresponds to Anti-Xa0.3-0.7 U/ml. [facility] CenterPro[facility] time with [id number] 16:20:27 Test Item Value Reference Range Interpretation Comments Prothrombin time (test 15.6 11.5- 14.5 sec H code = 5902-2) INR (test code = 1.2 The Interna tional 39515-7) Normalized Rati o (INR) is a therapeuti c monitoring tool for patients who ar e stable on oral anticoagulant t herapy. An INR of 2.0-3 .0 is suggested for d eep vein thrombosis/pulm onary embolism. Lab Interpretation Abnormal (test code = 30824-6) [facility] [place] Methodplains regional medical centerHepatic function [id number] 16:20:03 Test Item Value Reference Range Interpretation Comments Albumin (test code = 3.2 g/dL 3.5-5 L 1751-7) Total bilirubin (test 0.6 mg/dL 0-1.2 code = 1974-) Bilirubin direct (test <0.2 0-0.3 code = 1967-) Alkaline phosphatase 75 U/L 35-104 (test code = 6768-6) Protein (test code = 7.4 g/dL 6.3-8.3 -[place] n 2885-2) 4.6-7.0 g /dL1 week 4.4-7.6 g/dL 7 months-1year 5.1-7.3 g/dL 1-2 years 5.6-7.5 g/dL>3 years 6.0-8.0 g/hY64-001 6.3-8. 3 g/dL ALT (test code = 1742-6) 12 U/L 5-50 AST (test code = 1920-8) 18 U/L 10-35 Lab Interpretation (test Abnormal code = 26669-0) Vinod MethodistMagnesium [id number] 16:20:03 Test Item Value Reference Range Interpretation Comments Magnesium (test code = 84518-7) 2.3 mg/dL 1.6-2.4 Brock MethodistPhosphorus [id number] 16:19:59 Test Item Value Reference Range Interpretation Comments Phosphorus (test code = 2777-1) 2.9 mg/dL 2.4-4.5 Brock MethodistSurgical pathology [id number] 13:49:53 Test Item Value Reference Range Interpretation Comments Case number (test code = [id number]) Surgical pathology See link below for report (test code = PDF Lab Report [id number]) Result status (test code This is Final Report = [id number]) for [id number] Brock MethodistArterial [id number] 08:13:12Zonia Sneed MD 08/18/2020 8:13 AMArterial linePerformed [...] procedure circulation, sensation, movement: Unable to assess Brock [id number] 08:12:47Zonia Sneed MD 08/18/2020 8:13 AMAirwayPerformed by: [...] and lips in same condition as before induction.[facility] [place] MethodistABO and Rh [id number] 07:42:00 Test Item Value Reference Range Interpretation Comments ABO grouping (test code = 883-9) O Rh type (test code = 14551-9) POS Brock MethodistCOVID-19 qualitative [id number] 21:42:24 Test Item Value Reference Range Interpretation Comments Interpretation (test Negative results do code = 4587997) not preclude 2019-nCoV infection and should not be used as the sole basis for treatment or other patient management decisions. Negative results must be combined with clinical observations, patient history, and epidemiological information. COVID-19 qualitative Not-Detected Not-Detected PCR result (test code = 85867-8) COVID-19 qualitative See link below for C ase Number: PCR (test code = PDF Lab Report [id number]) Vinod BorjaistECG Pre/Post [id number] 16:00:09 Test Item Value Reference Range Interpretation Comments Ventricular rate (test 65 code = 253) Atrial rate (test code = 65 255) HI interval (test code = 180 266) QRSD [...] on 08/15/2020 4:00:08 PM Vinod MethodistType and [id number] 15:52:00 Test Item Value Reference Range Interpretation Comments ABO grouping (test code = 883-9) O Rh type (test code = 20001-9) POS Antibody screen (gel) (test code = NEG 890-4) Brock MethodistHemoglobin [id number] 15:31:25 Test Item Value Reference Range Interpretation Comments Hemoglobin A1C (test 5.8 % 4-5.6 H HbA1c c utoffs for code = 20191-5) diagnosing diabetes:4.0% - 5.6% = normal5.7% - 6.4% = increased risk for diabetes (prediabetes)9> =6.5% = dwqygimg2Akxd s for glycemic contro l (ADA 2016)< 7.0% Ta rget for non adults with leny betes. More or less stringent targe ts may be appropriate for individual shakir ents. <7.5% Target for Children and adolescents wit h type 1 diabetes. Lab Interpretation (test Abnormal code = 91705-6) Vinod HungComprehensive metabolic [id number] 15:04:38 Test Item Value Reference Range Interpretation Comments Sodium (test code = 145 135- 148 mEq/L 2951-2) Potassium (test code = 3.8 3.5- 5.0 mEq/L 2823-3) Chloride (test code = 106 98- 112 mEq/L 5-0) CO2 (test code = 2027-9) 27 24- 31 mEq/L Anion gap (test code = 12@ANIO 7- 15 mEq/L 10254-6) BUN (test code = 3094-0) 9 mg/dL 8-23 Creatinine (test code = 0.99 mg/dL 0.5-0.9 H 2160-0) Glucose (test code = 127 mg/dL 65-99 H 2345-7) Calcium (test code = 8.8 mg/dL 8.8-10.2 83536-9) Protein (test code = 6.9 g/dL 6.3-8.3 -[place] 2885-2) 4.6-7.0 g/dL1 week 4.4-7 .6 g/dL7 months-1y ear 5.1-7 .3 g/dL1-2 years 5.6-7 .5 g/dL>3 years 6.0-8 .0 g/zN81-931 6.3-8 .3 g/dL Albumin (test code = 3.5 g/dL 3.5-5 1750-) A/G ratio (test code = 1.0 0.7-3.8 1758-0) Alkaline phosphatase 59 U/L 35-104 (test code = 6768-6) AST (test code = 1920-8) 20 U/L 10-35 ALT (test code = 1742-6) 12 U/L 5-50 Total bilirubin (test 0.4 mg/dL 0-1.2 code = 1974-2) Lab Interpretation (test Abnormal code = 85289-9) Vinod Hung
[2020-10-31] MEDS ORDERED: NA CHLORIDE 0.9% 500 ML ONE (07:36)
[2020-10-31] MEDS ORDERED: MIDAZOLAM HCL 2 MG/2 ML INJ ONE ×2 (08:59→09:35)
[2020-10-31] MEDS ORDERED: FENTANYL CITR 100 MCG/2 ML ONE (08:59)
[2020-10-31] MEDS ORDERED: NITROGLYCERIN/D5W 25 MG/250 ML BTL IV ONE (08:59)
[2020-10-31] MEDS ORDERED: ATROPINE SULF 1 MG/10 ML SYR IV ONE (08:59)
[2020-10-31] MEDS ORDERED: NITROGLYCERIN 100 MCG/ML SYR (for cath lab use only) IV ONE (08:59)
[2020-10-31] MEDS ORDERED: NA CHLORIDE 0.9% 0 ML ONE (09:00)
[2020-10-31] MEDS ORDERED: HEPA 1000U/500MLS 1,000 UNIT/500 ML BAG IV ONE (09:09)
[2020-10-31] MEDS ORDERED: LIDOCAINE 1% 20 ML MDV ONE (09:09)
--- NOTE | 2020-10-31 10:04 | OP ---
Date of Procedure: 10/31/2020 Surgeon: Dakotah Roman MD Belt Sewer: America Almonte. Procedure Performed: Left heart catheterization with selective coronary arteriogram that was done on 10/31/2020. Indication: Unstable angina. History Of Present Illness: Ms. 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 Procedure In Detail: Prepped and draped in the routine sterile fashion. Using 10 cc of Xylocaine an d the Seldinger technique, we introduced a 6-Gabonese sheath in the right common femoral artery. Angio graphy there was normal. Angio-Seal was used to close the case. Dinesh catheter left and right wer e used to cannulate the left main and right main respectively. She was found to have moderate plaqui ng throughout her coronary. She has small vessels, tortuous. No focal stenosis. The patient tolera shauna the procedure well. There were no complications. Blood Loss: 5 mL. Postoperative Diagnosis: Mgxf-zz-wwtkkoee coronary artery disease. Plan: Plan is for medical therapy. She will continue her blood pressure medication. We will start her on statin as an outpatient. Anesthesia: Total conscious sedation 45 minutes. The patient will remain at bedrest for 2 hours after her Angio-Seal and she will go home today and se alexander raman in the office in the next 2 weeks. AKIKO/CLARITZA Voice ID: [id number] Report ID: [id number]
[2020-10-31 12:29] VITALS: BP 152/69; TEMP 97.7; O2SAT 98
== END 2020-10-31 11:56 | disposition home or self-care (01) ==
LOC: CCL 07:15
DX: I20.0 Unstable angina (principal); Z20.822 Contact with and (suspected) exposure to COVID-19
CPT/HCPCS: 93005; 85025; 80048; 36415; 85610; 85730; 71046; 93454; U0002; C1893; C1760; J2250 ×2; J3010; J7040; J1644; J0583

== ENCOUNTER 2021-08-13 21:24 | Emergency (ER) | payer OTHER, MEDICARE ==
[2021-08-13] MEDS ORDERED: IBUPROFEN 200 MG TAB PO ONE (21:50)
--- NOTE | 2021-08-13 23:08 | ER ---
Nurse's Notes [facility] Name: Pooja Lawrence Age: 76 yrs Sex: Female : 1945 Arrival Date: 08/13/2021 Time: 21:31 Bed 12 Private MD: Diagnosis: Pain in right shoulder Presentation: 08/13 21:42 Chief complaint: Patient states: she lost her footing and hit her new fence really hard bb injuring her right shoulder which is painful, swollen, and hot thinks she broke something denies LOC. Coronavirus screen: At this time, the client does not indicate any symptoms associated with coronavirus-19. Ebola Screen: No symptoms or risks identified at this time. Initial Sepsis Screen: Does the patient meet any 2 criteria? No. Patient's initial sepsis screen is negative. Does the patient have a suspected source of infection? No. Patient's initial sepsis screen is negative. Risk Assessment: Do you want to hurt yourself or someone else? Patient reports no desire to harm self or others. Onset of symptoms was August 09, 2021. 21:42 Method Of Arrival: Ambulatory bb 21:42 Acuity: THOMAS 4 bb Triage Assessment: 21:44 General: Appears in no apparent distress. uncomfortable, slender, Behavior is calm, bb cooperative. Pain: Complains of pain in right arm Pain currently is 8 out of 10 on a pain scale. Neuro: Level of Consciousness is awake, alert, obeys commands, Oriented to person, place, time, situation. Cardiovascular: Capillary refill < 3 seconds Patient's skin is warm and dry. Respiratory: Respiratory effort is even, unlabored, Respiratory pattern is regular. GI: No signs and/or symptoms were reported involving the gastrointestinal system. Derm: Skin is pink, warm \T\ dry. Musculoskeletal: Circulation, motion, and sensation intact. Reports pain in right arm. Historical: - Allergies: 21:44 Ciprofloxacin (Respiratory distress); bb 21:44 Demerol (Upset stomach); bb 21:44 Morphine (Upset stomach); bb 21:44 Sulfa (Sulfonamide Antibiotics) (Respiratory distress); bb 21:44 Ultram; bb - Home Meds: 21:44 Metoprolol Tartrate Oral [Active]; bb - PMHx: 21:44 Hypertension; mitral valve prolapse; scoliosis; bb - PSHx: 21:44 Appendectomy; section; Tonsillectomy; left arm surgery; bb - Immunization history:: Adult Immunizations up to date, Client reports receiving the 1st dose of the Covid vaccine. - Social history:: Smoking status: Patient denies any tobacco usage or history of. Screenin:47 Abuse screen: Denies threats or abuse. Nutritional screening: No deficits noted. bb Tuberculosis screening: No symptoms or risk factors identified. Fall Risk None identified. Assessment: 21:47 Reassessment: No changes from previously documented assessment. Patient is alert, bb oriented x 3, equal unlabored respirations, skin warm/dry/pink. 23:25 Reassessment: No changes from previously documented assessment. Patient is alert, bb oriented x 3, equal unlabored respirations, skin warm/dry/pink. sling applied to right arm pt verbalized understanding of and agrees to plan of care discharge instructions given pt ambulated with steady gait to exit. Vital Signs: 21:42 BP 118 / 82; Pulse 70; Resp 16 S; Temp 97.9(O); Pulse Ox 98% on R/A; Weight 48.08 kg bb (R); Height 5 ft. 5 in. (165.10 cm) (R); Pain 8/10; 23:25 BP 123 / 79; Pulse 62; Resp 18 S; Temp 97.8(O); Pulse Ox 92% on R/A; bb 21:42 Body Mass Index 17.64 (48.08 kg, 165.10 cm) bb ED Course: 21:31 Patient arrived in ED. wm 21:33 Lucho Sousa PA is PHCP. jmm 21:33 Tanvir Childress MD is Attending Physician. jmm 21:44 Triage completed. bb 21:44 Arm band placed on left wrist. Patient placed in an exam room, on a stretcher. bb 21:47 Patient has correct armband on for positive identification. Bed in low position. Call bb light in reach. 22:25 Marbella Woodson, RN is Primary Nurse. bb 22:31 Shoulder Right (2 View) XRAY In Process Unspecified. EDMS 23:26 No provider procedures requiring assistance completed. Patient did not have IV access bb during this emergency room visit. Administered Medications: 21:48 CANCELLED (Patient Refused): Wendell (HYDROcodone-acetaminophen) 5 mg-325 mg 1 tabs PO bb once; RASS on ADMIN: Combtv4, Very Agttd3, Agttd2, Rstlss1, AlertClm0, Drwsy-1, Lt Sdtn-2, Mod Sdtn-3, Dp Sdtn-4, UnArsble-5 21:59 Drug: Motrin (ibuprofen) 400 mg Route: PO; bb 23:25 Follow up: Response: No adverse reaction bb Outcome: 23:08 Discharge ordered by . rhina 23:26 Discharged to home ambulatory. bb 23:26 Condition: stable 23:26 Discharge instructions given to patient, Instructed on discharge instructions, follow up and referral plans. no driving heavy equipment, medication usage, Demonstrated understanding of instructions, follow-up care, medications, Prescriptions given X 1. 23:27 Patient left the ED. bb Signatures: Dispatcher [employer] EDMS Lucho Sousa PA PA jmm Ballard, Brenda, RN RN Amrita Valentino
--- NOTE | 2021-08-13 23:09 | EDPHYS ---
Physician Documentation [facility] Name: Pooja Lawrence Age: 76 yrs Sex: Female : 1945 Arrival Date: 08/13/2021 Time: 21:31 Bed 12 Private MD: ED Physician Tanvir Childress HPI: 08/13 21:45 This 76 yrs old Female presents to ER via Ambulatory with complaints of Fall jmm Injury - Right shoulder/arm. 21:45 Details of fall: The patient fell from an upright position. Onset: The symptoms/episode jmm began/occurred acutely, 4 day(s) ago. Associated injuries: The patient sustained Right shoulder. The patient has not experienced similar symptoms in the past. This is a 76-year-old female with history of hypertension the presents emerged from with right shoulder pain. Patient hit her right shoulder against a fence. States having pain since the fall this past Saturday. Denies other injury.. Historical: - Allergies: 21:44 Ciprofloxacin (Respiratory distress); bb 21:44 Demerol (Upset stomach); bb 21:44 Morphine (Upset stomach); bb 21:44 Sulfa (Sulfonamide Antibiotics) (Respiratory distress); bb 21:44 Ultram; bb - Home Meds: 21:44 Metoprolol Tartrate Oral [Active]; bb - PMHx: 21:44 Hypertension; mitral valve prolapse; scoliosis; bb - PSHx: 21:44 Appendectomy; section; Tonsillectomy; left arm surgery; bb - Immunization history:: Adult Immunizations up to date, Client reports receiving the 1st dose of the Covid vaccine. - Social history:: Smoking status: Patient denies any tobacco usage or history of. ROS: 21:45 Constitutional: Negative for fever, chills, and weight loss, Cardiovascular: Negative jmm for chest pain, palpitations, and edema, Respiratory: Negative for shortness of breath, cough, wheezing, and pleuritic chest pain. 21:45 MS/extremity: Positive for injury or acute deformity, pain. 21:45 All other systems are negative. Exam: 21:45 Constitutional: This is a well developed, well nourished patient who is awake, alert, jmm and in no acute distress. Head/Face: atraumatic. Eyes: EOMI, no conjunctival erythema appreciated ENT: Moist Mucus Membranes Neck: Trachea midline, Supple Chest/axilla: Normal chest wall appearance and motion. Cardiovascular: Regular rate and rhythm. No edema appreciated Respiratory: Normal respirations, no respiratory distress appreciated Abdomen/GI: Non distended, soft Back: Normal ROM Skin: General appearance color normal 21:45 Musculoskeletal/extremity: Right anterior shoulder is tender to palpation, painful range of motion noted with abduction, full pouch maker strength, full radial pulse, compartments are soft, neurovascular intact. 21:45 Skin: Appearance: Color: normal in color. 21:45 Neuro: Orientation: is normal, Mentation: is normal, Memory: is normal. Vital Signs: 21:42 BP 118 / 82; Pulse 70; Resp 16 S; Temp 97.9(O); Pulse Ox 98% on R/A; Weight 48.08 kg bb (R); Height 5 ft. 5 in. (165.10 cm) (R); Pain 8/10; 23:25 BP 123 / 79; Pulse 62; Resp 18 S; Temp 97.8(O); Pulse Ox 92% on R/A; bb 21:42 Body Mass Index 17.64 (48.08 kg, 165.10 cm) bb MDM: 21:54 Patient medically screened. [facility] 23:07 Data reviewed: vital signs, nurses notes. Counseling: I had a detailed discussion with rhina the patient and/or guardian regarding: the historical points, exam findings, and any diagnostic results supporting the discharge/admit diagnosis, radiology results, the need for outpatient follow up, to return to the emergency department if symptoms worsen or persist or if there are any questions or concerns that arise at home. ED course: X-ray does not reveal an acute fracture. Patient is advised to follow-up with orthopedics for further evaluation.. 08/13 21:45 Order name: Shoulder Right (2 View) XRAY [facility] 08/13 22:38 Order name: Sling; Complete Time: 23:24 [facility] Administered Medications: 21:48 CANCELLED (Patient Refused): Garrett (HYDROcodone-acetaminophen) 5 mg-325 mg 1 tabs PO bb once; RASS on ADMIN: Combtv4, Very Agttd3, Agttd2, Rstlss1, AlertClm0, Drwsy-1, Lt Sdtn-2, Mod Sdtn-3, Dp Sdtn-4, UnArsble-5 21:59 Drug: Motrin (ibuprofen) 400 mg Route: PO; bb 23:25 Follow up: Response: No adverse reaction bb Disposition: 08/14 01:15 Co-signature as Attending Physician, Tanvir Childress MD. mh7 Disposition Summary: 08/13/21 23:08 Discharge Ordered Location: Home [facility] Condition: Stable [facility] Diagnosis - Pain in right shoulder [facility] Followup: [facility] - With: Private Physician - When: 2 - 3 days - Reason: Recheck today's complaints, Continuance of care, Re-evaluation by your physician Discharge Instructions: - Discharge Summary Sheet [facility] - Shoulder Pain [facility] Forms: - Medication Reconciliation Form [facility] - Thank You Letter [facility] - Antibiotic Education [facility] - Prescription Opioid Use [facility] Prescriptions: - orphenadrine citrate 100 mg Oral Tablet Sustained Release - take 1 tablet by ORAL route 2 times per day As needed; 20 tablet; Refills: 0, [facility] Product Selection Permitted Signatures: Dispatcher [employer] EDLucho Fox PA PA jmm Ballard, Brenda, RN RN Tanvir Zimmer MD MD mh7 Corrections: (The following items were deleted from the chart) 08/13 21:48 21:45 Garrett (HYDROcodone-acetaminophen) 5 mg-325 mg 1 tabs PO once; RASS on ADMIN: bb Combtv4, Very Agttd3, Agttd2, Rstlss1, AlertClm0, Drwsy-1, Lt Sdtn-2, Mod Sdtn-3, Dp Sdtn-4, UnArsble-5 ordered. [facility]
[2021-08-13 23:38] VITALS: BP 123/79; TEMP 97.8; O2SAT 92
--- NOTE | 2021-08-14 07:24 | RAD REPORT ---
EXAM DESCRIPTION: RAD - Shoulder Right 2 View - 08/13/2021 10:31 pm CLINICAL HISTORY: Right shoulder pain FINDINGS: No fracture or dislocation is seen. 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 The bones appear osteoporotic.
--- OUTSIDE RECORDS SUMMARY | 2021-08-19 16:02 | XMS REPORT | Continuity of Care Document ---
:1945 Author Organization [facility] t Address [address] [place] [address] Care Team Providers Name Role Phone DENYS Attending Clinician Unavailable TRAV Attending Clinician Unavailable MD PINO RAVI Attending Clinician Unavailable TRAV Admitting Clinician Unavailable MD PINO RAVI Admitting Clinician Unavailable Problems This patient has no known problems. Allergies, Adverse Reactions, Alerts This patient has no known allergies or adverse reactions. Medications This patient has no known medications. Procedures This patient has no known procedures. Encounters Start End Encounter Admission Attending Care Care Encounter Source Date/Time Date/Time Type Type Clinicians Facility Department ID 2021-01-27 2021-01-27 Outpatient [facility] [id number] [place] 00:00:00 00:00:00 OMID [address] 2021-01-17 2021-01-17 Outpatient [facility] [id number] [place] 00:00:00 00:00:00 OMID [address] 2020-09-12 2020-09-14 Inpatient TRAV, [facility] [id number] [place] 00:00:00 00:00:00 PAY[place] [address] 2020-08-18 2020-08-20 Inpatient TRAV, [facility] 969 [id number] [place] 00:00:00 00:00:00 PAYTON [address] 2020-08-15 2020-08-15 Outpatient [facility] [id number] [place] 00:00:00 00:00:[address] [place] [address] Results Test Description Test Time Test Comments Results Result Comments Source SARS-CoV-2 (COVID-19) RNA [Presence] in Respiratory sp ecimen by 2020-08-15 21:41:50 GABBY with probe detection Test Item Value Reference Range Interpretation Comme nts SARS-CoV-2 (COVID-19) RNA [Presence] in Respiratory Not detected No t-Detected specimen by GABBY with probe detection (test code = 68017-9)
== END 2021-08-13 23:27 | disposition home or self-care (01) ==
LOC: ER 21:24
DX: M25.511 Pain in right shoulder (principal); I10 Essential (primary) hypertension; Z88.2 Allergy status to sulfonamides
CPT/HCPCS: 99283

== ENCOUNTER 2022-05-25 20:12 | Emergency (ER) | payer OTHER, MEDICARE ==
[2012-02-16 08:42] VITALS: BP 144/57
--- OUTSIDE RECORDS SUMMARY | 2022-05-25 20:16 | XMS REPORT | Continuity of Care Document ---
:[address] [facility] Address [address] [place] [address] [address] [place] [address] Care Team Providers Name Role Phone OLEKSANDR DAVE Attending Clinician Unavailable OMID MCFARLANE Attending Clinician Unavailable PAYTON RAVI Attending Clinician MD PAYTON Rodriguez Attending Clinician Unavailable PAYTON RAVI Admitting Clinician Unavailable MD PAYTON RAVI Admitting Clinician Unavailable Problems This patient has no known problems. Allergies, Adverse Reactions, Alerts This patient has no known allergies or adverse reactions. Medications This patient has no known medications. Procedures This patient has no known procedures. Encounters Start End Encounter Admission Attending Care Care Encounter Source Date/Time Date/Time Type Type Clinicians Facility Department ID 2021-11-30 Outpatient [facility] [id number] [place] 10:06:04 [facility] 2022-05-23 2022-05-23 Outpatient OLEKSANDR DAVE [facility] [id number] [place] 00:00:00 00:00:[address] 2022-05-23 2022-05-23 Outpatient LINA DAVEY [facility] [id number] [place] 00:00:00 00:00:[address] 2021-01-27 2021-01-27 [facility] [id number] [place] 00:00:00 00:00:00 OMID [address] 2021-01-17 2021-01-17 [facility] [id number] [place] 00:00:00 00:00:00 OMID [address] 2020-09-12 2020-09-14 Inpatient [facility] [id number] [place] 00:00:00 00:00:00 PA[place] [address] 2020-08-18 2020-08-20 Inpatient TRAV, [facility] [id number] [place] 00:00:00 00:00:00 PAY[place] [address] 2020-08-15 2020-08-15 Outpatient TRAV, [facility] [id number] [place] 00:00:00 00:00:[address] [place] [address] Results Test Description Test Time Test Comments Results Result Comments Source SARS-CoV-2 (COVID-19) RNA [Presence] in Respiratory sp ecimen by 2020-08-15 21:41:50 GABBY with probe detection Test Item Value Reference Range Interpretation Comme nts SARS-CoV-2 (COVID-19) RNA [Presence] in Respiratory Not detected No t-Detected specimen by GABBY with probe detection (test code = 02721-4)
--- NOTE | 2022-05-25 21:10 | ER ---
Nurse's Notes [facility] Name: Pooja Lawrence Age: 76 yrs Sex: Female : 1945 Arrival Date: 05/25/2022 Time: 20:17 Bed Waiting Private MD: Diagnosis: ED Course: 05/25 20:17 Patient arrived in ED. jj6 20:32 Gisselle Brock FNP-C is [facility]. cordell 20:32 Manuel Huff MD is Attending Physician. kb Administered Medications: No medications were administered Outcome: 21:09 Patient left the ED. bm7 Signatures: Gisselle Brock FNP-C FNP-Ckb McCarthy, Brittany, RN RN bm7 Margret Reyes jj6
[2022-05-25] MEDS ORDERED: predniSONE 20 MG TAB ONE (23:11)
[2022-05-25] MEDS ORDERED: FAMOTIDINE 20 MG TAB ONE (23:12)
== END 2022-05-25 21:09 | disposition left against medical advice (07) ==
LOC: ER 20:12
DX: Z53.21 Procedure and treatment not carried out due to patient leaving prior to being seen by health care provider (principal)
CPT/HCPCS: J7512

== ENCOUNTER 2022-05-25 21:46 | Emergency (ER) | payer OTHER, MEDICARE ==
--- OUTSIDE RECORDS SUMMARY | 2022-05-25 21:49 | XMS REPORT | Continuity of Care Document ---
:1945 Author Organization [facility] Address [address] [place] [address] [address] [place] [address] Care Team Providers Name Role Phone OLEKSANDR [...] Type Clinicians Facility Department ID 2021-11-30 Outpatient [facility] [id number] Common 10:06:04 [facility] 2022-05-23 2022-05-23 Outpatient OLEKSANDR DAVE [facility] [id number] [place] 00:00:00 00:00:[address] 2022-05-23 2022-05-23 Outpatient LINA DAVEY [facility] [id number] [place] 00:00:00 00:00:[address] 2021-01-27 2021-01-27 [facility] [id number] [place] 00:00:00 00:00:00 OMID [address] 2021-01-17 2021-01-17 [facility] [id number] [place] 00:00:00 00:00:00 OMID [address] 2020-09-12 2020-09-14 Inpatient [facility] [id number] [place] 00:00:00 00:00:00 PAY[place] [address] 2020-08-18 2020-08-20 Inpatient TRAV, [facility] [id number] [place] 00:00:00 00:00:00 PAYTON [address] 2020-08-15 2020-08-15 Outpatient TRAV, [facility] [id number] [place] 00:00:00 00:00:00 [place] Results Test Description Test Time Test Comments Results Result Comments Source SARS-CoV-2 (COVID-19) RNA [Presence] in Respiratory sp ecimen by 2020-08-15 21:41:50 GABBY with probe detection Test Item Value Reference Range Interpretation Comme nts SARS-CoV-2 (COVID-19) RNA [Presence] in Respiratory Not detected No t-Detected specimen by GABBY with probe detection (test code = 37779-6)
--- NOTE | 2022-05-25 22:56 | EDPHYS ---
Physician Documentation [facility] Name: Pooja Lawrence Age: 76 yrs Sex: Female : 1945 Arrival Date: 05/25/2022 Time: 21:49 Bed 23 Private MD: ED Physician Manuel Huff HPI: 05/25 23:45 This 76 yrs old Female presents to ER via Ambulatory with complaints of Insect Bite. kb 23:45 The patient's rash thought to be caused by an unknown cause. The rash is located on the kb chest and back. The rash can be described as erythematous. Onset: The symptoms/episode began/occurred today. Associated signs and symptoms: Pertinent positives: itching, Pertinent negatives: burning sensation, difficulty breathing, Pain. Severity of symptoms: At their worst the symptoms were moderate in the emergency department the symptoms are unchanged. The patient has not experienced similar symptoms in the past. The patient has not recently seen a physician. Historical: - Allergies: 22:27 Ciprofloxacin (Respiratory distress); bm7 22:27 Demerol (Upset stomach); bm7 22:27 Morphine (Upset stomach); bm7 22:27 Sulfa (Sulfonamide Antibiotics) (Respiratory distress); bm7 22:27 Ultram; bm7 - Home Meds: 22:27 Metoprolol Tartrate Oral [Active]; bm7 - PMHx: 22:27 Hypertension; bm7 22:27 mitral valve prolapse; scoliosis; bm7 - PSHx: 22:27 Appendectomy; section; left arm surgery; Tonsillectomy; bm7 - Immunization history:: Adult Immunizations up to date. - Social history:: Smoking status: Patient denies any tobacco usage or history of. ROS: 23:44 Constitutional: Negative for fever, chills, and weight loss. kb 23:44 Skin: Positive for rash, of the back and abdomen. 23:44 All other systems are negative. Exam: 23:44 Constitutional: This is a well developed, well nourished patient who is awake, alert, kb and in no acute distress. Head/Face: Normocephalic, atraumatic. ENT: Moist Mucous membranes Respiratory: Respirations even and unlabored. No increased work of breathing. Talking in full sentences MS/ Extremity: Pulses equal, no cyanosis. Neurovascular intact. Full, normal range of motion. Neuro: Awake and alert, GCS 15, oriented to person, place, time, and situation. Moves all extremities. Normal gait. Psych: Awake, alert, with orientation to person, place and time. Behavior, mood, and affect are within normal limits. 23:44 Skin: consistent with contact dermatitis, on the abdomen and chest. Vital Signs: 22:25 BP 185 / 87; Pulse 73; Resp 18; Temp 98.2(O); Pulse Ox 98% on R/A; Weight 48.08 kg (R); bm7 Height 5 ft. 5 in. (165.10 cm); Pain 0/10; 22:25 Body Mass Index 17.64 (48.08 kg, 165.10 cm) bm7 MDM: 22:46 Patient medically screened. kb 23:44 Data reviewed: vital signs, nurses notes. Data interpreted: Pulse oximetry: on room air kb is 98 %. Interpretation: normal. 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 Administered Medications: 23:06 Drug: predniSONE 40 mg Route: PO; ja4 23:06 Drug: Pepcid (famotidine) 20 mg Route: PO; ja4 Disposition: 05/26 00:44 Co-signature as Attending Physician, Manuel Huff MD I agree with the assessment and kdr plan of care. Disposition Summary: 05/25/22 22:56 Discharge Ordered Location: Home kb Condition: Stable kb Diagnosis - Rash and other nonspecific skin eruption kb Followup: kb - With: Emergency Department - When: As needed - Reason: Worsening of condition Followup: kb - With: Private Physician - When: 2 - 3 days - Reason: Recheck today's complaints, Continuance of care, Re-evaluation by your physician Discharge Instructions: - Discharge Summary Sheet kb - Rash, Adult, [id number] kb Forms: - Medication Reconciliation Form kb - Thank You Letter kb - Antibiotic Education kb - Prescription Opioid Use kb Prescriptions: - Pepcid 20 mg Oral Tablet - take 1 tablet by ORAL route every 12 hours for 5 days; 10 tablet; Refills: 0, kb Product Selection Permitted - Prednisone 20 mg Oral Tablet - take 1 tablet by ORAL route once daily for 5 days; 5 tablet; Refills: 0, kb Product Selection Permitted Signatures: Gisselle Brock, Manuel Rivera MD MD kdr McCarthy, Brittany, RN RN bm7 Emeterio Meza RN RN ja4
--- NOTE | 2022-05-25 22:56 | ER ---
Nurse's Notes [facility] Name: Pooja Lawrence Age: 76 yrs Sex: Female : 1945 Arrival Date: 05/25/2022 Time: 21:49 Bed 23 Private MD: Diagnosis: Rash and other nonspecific skin eruption Presentation: 05/25 22:26 Chief complaint: Patient states: I think I was bit by a spider a few hours ago and now bm7 I am breaking out in a rash all over my body. Coronavirus screen: At this time, the client does not indicate any symptoms associated with coronavirus-19. Ebola Screen: No symptoms or risks identified at this time. Initial Sepsis Screen: Does the patient meet any 2 criteria? No. Patient's initial sepsis screen is negative. Does the patient have a suspected source of infection? No. Patient's initial sepsis screen is negative. Risk Assessment: Do you want to hurt yourself or someone else? Patient reports no desire to harm self or others. Onset of symptoms was May 25, 2022. 22:26 Method Of Arrival: Ambulatory [facility] 22:26 Acuity: THOMAS 4 bm7 Triage Assessment: 22:27 Bite description: bite sustained to unknown location no bite seen by a spider, animal bm7 information: vaccination(s) is unknown. General: Appears in no apparent distress. uncomfortable, Behavior is calm, cooperative, appropriate for age. Pain: Denies pain. EENT: No deficits noted. No signs and/or symptoms were reported regarding the EENT system. Neuro: Level of Consciousness is awake, alert, obeys commands. Cardiovascular: No deficits noted. Respiratory: Breath sounds are clear bilaterally. Denies cough, shortness of breath. GI: No deficits noted. No signs and/or symptoms were reported involving the gastrointestinal system. : No deficits noted. No signs and/or symptoms were reported regarding the genitourinary system. Derm: Skin is intact, is healthy with good turgor, is fragile, is thin, Skin is dry, Skin is pink, warm \T\ dry. Rash noted that is itchy, red, on back, chest, abdomen, pelvis, right leg and left leg. Musculoskeletal: No deficits noted. No signs and/or symptoms reported regarding the musculoskeletal system. Historical: - Allergies: :27 Ciprofloxacin (Respiratory distress); bm7 22:27 Demerol (Upset stomach); bm7 22:27 Morphine (Upset stomach); bm7 22:27 Sulfa (Sulfonamide Antibiotics) (Respiratory distress); bm7 22:27 Ultram; bm7 - Home Meds: 22:27 Metoprolol Tartrate Oral [Active]; bm7 - PMHx: 22:27 Hypertension; bm7 22:27 mitral valve prolapse; scoliosis; bm7 - PSHx: 22:27 Appendectomy; section; left arm surgery; Tonsillectomy; bm7 - Immunization history:: Adult Immunizations up to date. - Social history:: Smoking status: Patient denies any tobacco usage or history of. Screenin:39 Abuse screen: Denies threats or abuse. Nutritional screening: No deficits noted. ja4 Tuberculosis screening: No symptoms or risk factors identified. Fall Risk None identified. Assessment: 22:38 General: Appears in no apparent distress. Behavior is calm, cooperative, appropriate ja4 for age. Derm: Skin is red, Skin temperature is warm Rash noted that is urticaria. Vital Signs: 22:25 BP 185 / 87; Pulse 73; Resp 18; Temp 98.2(O); Pulse Ox 98% on R/A; Weight 48.08 kg (R); bm7 Height 5 ft. 5 in. (165.10 cm); Pain 0/10; 22:25 Body Mass Index 17.64 (48.08 kg, 165.10 cm) bm7 ED Course: 21:49 Patient arrived in ED. bp1 22:25 Arm band placed on right wrist. bm7 22:27 Triage completed. bm7 22:38 Emeterio Meza, RN is Primary Nurse. ja4 22:39 Patient has correct armband on for positive identification. Call light in reach. Side ja4 rails up X 1. Side rails up X2. 22:39 No provider procedures requiring assistance completed. ja4 22:45 Gisselle [facility]-C [facility]. kb 22:45 Manuel Huff MD is Attending Physician. kb Administered Medications: 23:06 Drug: predniSONE 40 mg Route: PO; ja4 23:06 Drug: Pepcid (famotidine) 20 mg Route: PO; ja4 Outcome: 22:56 Discharge ordered by . kb 23:07 Discharged to home ambulatory. ja4 23:07 Condition: good 23:07 Discharge instructions given to patient, Instructed on discharge instructions, follow up and referral plans. medication usage, Demonstrated understanding of instructions, follow-up care, medications, Prescriptions given X 2. 23:07 Patient left the ED. ja4 Signatures: Gisselle Brock, SAFETY COUNSELOR-C SAFETY COUNSELOR-Verna Kessler [facility] Verna Granger, RN RN bm7 Emeterio Meza RN RN ja4
[2022-05-26 02:17] VITALS: BP 185/87; TEMP 98.2; O2SAT 98
== END 2022-05-25 23:07 | disposition home or self-care (01) ==
LOC: ER 21:46
DX: R21 Rash and other nonspecific skin eruption (principal); I10 Essential (primary) hypertension; Z88.1 Allergy status to other antibiotic agents; Z88.2 Allergy status to sulfonamides; Z88.5 Allergy status to narcotic agent
CPT/HCPCS: 99283

== ENCOUNTER 2022-12-19 18:46 | Emergency (ER) | payer OTHER, MEDICARE ==
--- OUTSIDE RECORDS SUMMARY | 2022-12-19 18:49 | XMS REPORT | Continuity of Care Document ---
:1945 Author Organization [facility] t Address [address] [facility] [address] [place] [address] Care Team Providers Name Role Phone Provider MD, Not In System Primary Care Physician Unavailyo Vlea MD, Shekhar Zarate Attending Clinician Edil Gonzalez Attending Clinician Johanny Barbour Attending Clinician [phone] Violetta Barahona Attending Clinician Unavailable Nicolle Quick MD Attending Clinician Marion Sterling MA Attending Clinician Unavailable OMID MCFARLANE Attending Clinician Unavailable PAYTON RAVI Attending Clinician Unavailable MD PAYTON RAVI Attending Clinician Unavailable SHEKHAR VELA Admitting Clinician Unavailable PAYTON RAVI Admitting Clinician Unavailable MD PAYTON RAVI Admitting Clinician Unavailable Payers Payer Name Policy Type Policy Number Effective Date Expiration Date S ource Problems Condition Condition Condition Status Onset Resolution Last Treating Co mments Source Name Details Category Date Date Treatment Clinician Date Acute pain Acute pain Disease Active M ethodi of right of right 10-18 shoulder shoulder 00:00: Hospit a 00 l Fall (on) Fall (on) Disease Active Met hodi (from) (from) 10-18 other other 00:00: Hospita stairs and stairs and 00 l steps, steps, initial initial encounter encounter Internal Internal Disease Active Metho di derangemen derangemen 10-18 t of right t of right 00:00: Ho spita shoulder shoulder 00 l Adhesive Adhesive Disease Active Metho di capsulitis capsulitis 1-12 st of right of right 00:00: Hospit a shoulder shoulder 00 l Biceps Biceps Disease Active 2021-10 Methodi tendon tendon 0-12 st tear tear 00:00: Hospita 00 l S/P right S/P right Disease Active 2021-10 Met hodi rotator rotator 0-12 st cuff cuff 00:00: Hospita repair repair 00 l Traumatic Traumatic Disease Active Met hodi complete complete 8-17 st tear of tear of 00:00: Hospita right right 00 l rotator rotator cuff cuff Primary Primary Disease Active 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 00:00: Ho spita osis of osis of 00 l right right shoulder shoulder region region 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 00:00: Hospita involving involving 00 [place] coronary coronary artery artery Chest pain Chest pain Disease Active M ethodi 4-13 st 00:00: Hospita 00 l 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 00:00: Hospita involving involving 00 [place] 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 00:00: Ho spita 00 l Preop Preop Disease Active 2019-10 Methodi examinatio examinatio 1-12 st n n 00:00: Hospita 00 l Allergies, Adverse Reactions, Alerts Allergy Allergy Status Severity Reaction(s) Onset Inactive Treating Comm ents Source Name Type Date Date Clinician Corticos Propensi Active Palpitations Can marilynn e Methodi teroids ty to 05-[address] (Glucoco adverse 00:00: pills in Hospi ta rticoids reaction 00 small l ) s to amounts drug Meperidi Propensi Active Shortness Of Methodi ne ty to Breath 728 st adverse 00:00: Hospita reaction 00 l s to drug Morphine Propensi Active Palpitations Methodi ty to 728 st adverse 00:00: Hospita reaction 00 l s to drug Quinolon Propensi Active Shortness Of Methodi es ty to Breath 7-28 st adverse 00:00: Hospita reaction 00 l s to drug Sulfamet Propensi Active Rash Method i hoxazole ty to 05-03 adverse 00:00: Hospita reaction 00 l s to drug Family History Family Member Diagnosis Comments Start Date Stop Date Source Natural father Aortic aneurysm [facility] Natural mother [facility] Social History Social Habit Start Date Stop Date Quantity Comments Source History of tobacco Cigarette Smoker [facility] Alcohol intake 2022-07-06 2022-07-06 Ex-drinker [facility] 00:00:00 00:00:00 (finding) Hospital Tobacco use and 2020-08-13 2020-08-13 Smokeless tobacco [facility] exposure 00:00:00 00:00:00 non-user Hospital Cigarettes smoked 2020-08-13 2020-08-[address] current (pack per 00:00:00 00:00:00 Hospita l day) - Reported Cigarette 2020-08-13 2020-08-13 [facility] pack-[facility] 00:00:00 00:00:00 Hospital Alcohol Comment 2020-08-13 2020-08-13 YEARLY A 1/[address] 00:00:00 00:00:00 GLASS OF WINE AT [facility] Sex Ass[birth year] At [birth year] [facility] 00:00:00 00:00:00 Hospital Smoking Status Start Date Stop Date Source Ex-smoker 2020-08-13 00:00:00 2020-08-13 [facility] Medications Ordered Filled Start Stop Current Ordering Indication Dosage Frequency Signature Comments Components Source Medication Medication Date Date Medication? Clinician (SIG) Name Name meloxicam 2022- No 7.5mg QD Take 1 Meth nino (Mobic) 7.5 10-17-[address] mg tablet 00:00: 05:59 (7.5 mg Hosp mark 00 :00 total) by l mouth daily for 30 days. HYDROcodone 2021- [place] [id number] 1{tbl} Q6H Take 1 Methodi -acetaminop 9-27 10-[address] redman (Verdon) 00:00: 04:59 mouth Hosp mark 10-325 mg 00 :00 every 6 l per tablet (six) hours as needed for moderate pain for up to 7 days .acute pain. Max Daily Amount: 4 tablets HYDROcodone 2021- [place] [id number] 1{tbl} Q6H Take 1 Methodi -acetaminop 9-27 10-[address] hen (Verdon) 00:00: 04:59 mouth Hosp mark 10-325 mg 00 :00 every 6 l per tablet (six) hours as needed for moderate pain for up to 7 days .acute pain. Max Daily Amount: 4 tablets simvastatin Yes 40mg QD Take 40 mg Methodi (ZOCOR) 40 2-[address] mg tablet 00:00: daily. Hospit a l simvastatin Yes 40mg QD Take 40 mg Methodi (ZOCOR) 40 2-[address] mg tablet 00:00: daily. Hospit a l metoprolol Yes 25mg QD Take 25 mg M ethodi tartrate 6-[address] (LOPRESSOR) 00:00: every Hospi ta 25 MG 00 evening. l tablet metoprolol Yes 25mg QD Take 25 mg M ethodi tartrate 6-[address] (LOPRESSOR) 00:00: every Hospi ta 25 MG 00 evening. l tablet Immunizations Ordered Immunization Filled Immunization Date Status Commen ts Source Name Name [facility] 2021-10-02 Completed Meth odist VACCINATION 00:00:00 [facility] COVID-19 MRNA 2021-10-02 [facility] 00:00:00 [facility] COVID19 2021-01-09 Completed Methodis t MRNA VACCINATION 00:00:00 [facility] COVID19 2020-12-12 Completed Methodis t MRNA VACCINATION 00:00:00 [facility] COVID19 2020-12-12 Completed Methodis t MRNA VACCINATION 00:00:00 Hospital Vital Signs Vital Name Observation Time Observation Value Comments Source Systolic blood 2022-07-05 17:26:00 139 mm[Hg] Method ist Hospital pressure Diastolic blood 2022-07-05 17:26:00 65 mm[Hg] [facility] dist Hospital pressure Heart rate 2022-07-05 17:26:00 75 /min [facility] Body temperature 2022-07-05 17:26:00 36.11 Na [facility] Respiratory rate 2022-07-05 17:26:00 17 /min [facility] Oxygen saturation in 2022-07-05 17:26:00 96 /min [facility] Arterial blood by Pulse oximetry Body height 2022-07-05 11:43:00 165.1 cm [facility] Body weight 2022-07-05 11:43:00 52.362 kg [facility] BMI 2022-07-05 11:43:00 19.21 kg/m2 [facility] Procedures Procedure Date / Time Performing Clinician Source Performed XR SHOULDER 2+ VW RIGHT 2022-10-17 21:38:26 [facility] Shekhar [facility] [place] ARTHROCENTESIS 2022-10-17 21:10:00 [facility] ASPIR&/INJ MAJOR JT/BURSA W/O US [place] AN ELECTIVE 2022-07-05 12:23:00 Krishna Camilo [facility] ENDOTRACHEAL AIRWAY Nicholas ARTHROSCOPY, SHOULDER 2022-07-05 12:13:00 [facility] N[facility], 2022-07-05 12:07:02 Yuko Cardenas [facility] INTERSCALENE XR SHOULDER 2+ VW RIGHT 2022-05-23 15:13:00 [facility] Shekhar [facility] MRI UPPER EXTREMITY 2021-12-18 17:37:12 [facility] EXTERNAL STUDY Plan of Care Planned Activity Planned Date Details Comments Source Future Scheduled 2022-12-19 65+ PNEUMOCOCCAL [facility] Test 17:19:35 VACCINE (1 - PCV) [code = 65+ PNEUMOCOCCAL VACCINE (1 - PCV)] Future Scheduled 2022-12-19 Hepatitis C screening [facility] Test 17:19:35 (procedure) [code = 416177435] Future Scheduled 2022-12-19 BREAST CANCER [facility] Test 17:19:35 SCREENING [code = BREAST CANCER SCREENING] Future Scheduled 2022-12-19 COLONOSCOPY SCREENING [facility] Test 17:19:35 [code = COLONOSCOPY SCREENING] Future Scheduled 2022-12-19 SHINGLES VACCINES (1 Met [facility] Test 17:19:35 of 2) [code = SHINGLES VACCINES (1 of 2)] Future Scheduled 2022-12-19 INFLUENZA VACCINE [facility] Test 17:19:35 [code = INFLUENZA VACCINE] Future Scheduled 2022-07-18 HEPATITIS B VACCINES Met [facility] Test 13:49:14 (1 of 3 - 3-dose series) [code = HEPATITIS B VACCINES (1 of 3 - 3-dose series)] Future Scheduled 2022-07-18 65+ PNEUMOCOCCAL [facility] Test 13:49:14 VACCINE (1 - PCV) [code = 65+ PNEUMOCOCCAL VACCINE (1 - PCV)] Future Scheduled 2022-07-18 Hepatitis C screening [facility] Test 13:49:14 (procedure) [code = 868324423] Future Scheduled 2022-07-18 BREAST CANCER [facility] Test 13:49:14 SCREENING [code = BREAST CANCER SCREENING] Future Scheduled 2022-07-18 COLONOSCOPY SCREENING [facility] Test 13:49:14 [code = COLONOSCOPY SCREENING] Future Scheduled 2022-07-18 SHINGLES VACCINES (1 Met [facility] Test 13:49:14 of 2) [code = SHINGLES VACCINES (1 of 2)] Future Scheduled 2022-07-18 INFLUENZA VACCINE Method [facility] Test 13:49:14 [code = INFLUENZA VACCINE] Encounters Start End Encounter Admission Attending Care Care Encounter Source Date/Time Date/Time Type Type Clinicians Facility Department ID 2021-11-30 Outpatient [facility] [id number] Common 10:06:04 [facility] 2022-10-17 2022-10-17 Office Shekhar Vela 1.2.840.1 [id number] Methodi 15:10:00 16:20:[address]252[address]1.[address] 3.430.2.7 Hospit a .3.906994 l .8 2022-10-17 2022-10-17 Travel 1.2.840.1 1.2.157.404 [id number] Methodi 00:00:00 00:00:[address] 3.430.2.7 0.2.7.3.698 Ho spita .3.441807 084.8 l .8 2022-10-17 2022-10-17 Outpatient SHEKHAR VELA [facility] [id number] Bieber 00:00:00 00:00:[address] 2022-10-17 2022-10-17 Outpatient SHEKHAR VELA [facility] [id number] Bieber 00:00:00 00:00:[address] 2022-09-19 2022-09-19 Ambulatory [facility] MNA [id number] Memoria 15:30:00 15:30:00 Pre-Reg Neurology 00 l Vance Alann 2022-09-19 2022-09-19 Ambulatory [facility] MNA [id number] Memoria 15:30:00 15:30:00 Pre-Reg Neurology 00 l Vance Blanchard 2022-09-19 2022-09-19 Outpatient MHIE MHIE [id number] Memoria 09:30:00 09:30:00 00 l Santo 2022-09-19 2022-09-19 Outpatient Carlos [facility] [id number] 09:30:00 09:30:00 Edil 00 Lv 2022-08-10 2022-08-10 Travel 1.2.840.1 1.2.848.532 [id number] Methodi 00:00:00 00:00:[address] 3.430.2.7 0.2.7.3.698 Ho spita .3.681943 084.8 l .8 2022-07-18 2022-07-18 Office Shekhar Vela 1.2.840.1 [id number] Methodi 09:00:00 11:24:45 [address] B. 54543.1.[address] 3.430.2.7 Hospit a .3.381222 l .8 2022-07-18 2022-07-18 Office Shekhar Vela 1.2.840.1 [id number] Methodi 09:00:00 11:24:45 [address]87.1.[address] 3.430.2.7 Hospit a .3.899455 l .8 2022-07-18 2022-07-18 Travel 1.2.840.1 1.2.943.958 3826 [id number] Methodi 00:00:00 00:00:[address] 3.430.2.7 0.2.7.3.698 Ho spita .3.466291 084.8 l .8 2022-07-18 2022-07-18 Travel 1.2.840.1 1.2.131.486 2405 [id number] Methodi 00:00:00 00:00:[address] 3.430.2.7 0.2.7.3.698 Ho spita .3.777488 084.8 l .8 2022-07-06 2022-07-06 Telephone Km, 1.2.840.1 [id number] Methodi 00:00:00 00:00:00 Johanny 63195.1.1 371 s t R. 3.430.2.7 Hospit a .3.716259 l .8 2022-07-06 2022-07-06 Ruben Garcia 1.2.840.1 [id number] 2099 [id number] Methodi 00:00:00 00:00:00 Only Violetta 85427.1.[address] 3.430.2.7 Hospit a .3.805034 l .8 2022-07-06 2022-07-06 Telephone Km, 1.2.840.1 [id number] Methodi 00:00:00 00:00:00 Johanny 46119.1.1 371 s t R. 3.430.2.7 Hospit a .3.551864 l .8 2022-07-06 2022-07-06 Ruben Garcia 1.2.840.1 [id number] 2099 [id number] Methodi 00:00:00 00:00:00 Only Violetta 02631.1.[address] 3.430.2.7 Hospit a .3.230946 l .8 2022-07-05 2022-07-05 [facility], Shekhar 1.2.840.1 [id number] Methodi 06:02:00 23:59:00 [address]Valerie [address]298.1.[address] 3.430.2.7 Hospit a .3.392577 l .8 2022-07-05 2022-07-05 Anesthesia Nicolle Quick 1.2.840.1 [id number] Methodi 07:13:00 11:23:00 Event Johanny Barbour 73530.1.[address] 3.430.2.7 Hospit a .3.417427 l .8 2022-07-05 2022-07-05 Anesthesia Nicolle Quick 1.2.840.1 [id number] Methodi 07:13:00 11:23:00 Event Johanny Barbour 90928.1.[address] 3.430.2.7 Hospit a .3.697141 l .8 2022-07-05 2022-07-05 Surgery Shekhar Vela 1.2.840.1 [id number] [id number] Methodi 07:15:00 11:00:[address] 3.430.2.7 Hospit a .3.952436 l .8 2022-07-05 2022-07-05 Surgery Shekhar Vela 1.2.840.1 [id number] Methodi 07:15:00 11:00:[address] 3.430.2.7 Hospit a .3.717433 l .8 2022-07-05 2022-07-05 [facility] SHEKHAR VELA [facility] 021 [id number] Bieber 00:00:00 00:00:00 Encounter [address] 2022-07-05 2022-07-05 Travel 1.2.840.1 1.2.726.847 3616 [id number] Methodi 00:00:00 00:00:[address] 3.430.2.7 0.2.7.3.698 Ho spita .3.046997 084.8 l .8 2022-07-05 2022-07-05 Travel 1.2.840.1 1.2.062.868 8738 [id number] Methodi 00:00:00 00:00:[address] 3.430.2.7 0.2.7.3.698 Ho spita .3.800820 084.8 l .8 2022-07-03 2022-07-03 Refill Jose, 1.2.840.1 [id number] 2099 [id number] Methodi 00:00:00 00:00:[address] 3.430.2.7 Hospit a .3.031385 l .8 2022-07-03 2022-07-03 Refill Jose, 1.2.840.1 [id number] 2099 [id number] Methodi 00:00:00 00:00:[address] 3.430.2.7 Hospit a .3.212308 l .8 2022-07-02 2022-07-02 China Sterling, 1.2.840.1 [id number] [id number] Methodi 00:00:00 00:00:[address] 3.430.2.7 Hospit a .3.412988 l .8 2022-07-02 2022-07-02 [facility] 1.2.840[facility]1 [id number] Methodi 00:00:00 00:00:[address] 3.430.2.7 Hospit a .3.830497 l .8 2022-06-13 2022-06-13 [facility] Shekhar Vela 1.2.840.1 [id number] 21 [id number] Methodi 10:31:53 23:59:00 [address]counter [address]Valerie 73293.1.[address] 3.430.2.7 Hospit a .3.397482 l .8 2022-06-13 2022-06-13 [facility] SHEKHAR VELA 1.2.840.1 [id number] Bieber 00:00:00 00:00:00 Encounter 04137.1.1 [address] .3.478292 .8 2022-06-13 2022-06-13 [facility] Shekhar Vela 1.2.840.1 [id number] [id number] Methodi 00:00:00 00:00:[address] Only B[address] 44580.1.[address] 3.430.2.7 Hospit a .3.357774 l .8 2022-06-13 2022-06-13 [facility] Shekhar Vela 1.2.840.1 [id number] 866 [id number] Methodi 00:00:00 00:00:[address] B[address]48.1.[address] 3.430.2.7 Hospit a .3.917690 l .8 2022-06-08 2022-06-08 Orders Jose 1.2.840.1 [id number] 2099 [id number] Methodi 00:00:00 00:00:00 Only Violetta 48827.1.[address] 3.430.2.7 Hospit a .3.213485 l .8 2022-06-08 2022-06-08 Orders Jose 1.2.840.1 [id number] 2099 [id number] Methodi 00:00:00 00:00:00 Only Violetta 02219.1.[address] 3.430.2.7 Hospit a .3.544585 l .8 2022-05-28 2022-05-28 Orders Jose, 1.2.840.1 [id number] Methodi 00:00:00 00:00:00 Only Violetta 68098.1.[address] 3.430.2.7 Hospit a .3.011216 l .8 2022-05-28 2022-05-28 Prep for Jose 1.2.840.1 [id number] 866 [id number] Methodi 00:00:00 00:00:00 Surgery Violetta [address]10.1.[address] 3.430.2.7 Hospit a .3.997078 l .8 2022-05-28 2022-05-28 Orders Jose, 1.2.840.1 [id number] 2099 [id number] Methodi 00:00:00 00:00:00 Only Violetta 15857.1.[address] 3.430.2.7 Hospit a .3.295077 l .8 2022-05-28 2022-05-28 Prep for Jose, 1.2.840.1 [id number] 025 [id number] Methodi 00:00:00 00:00:00 Surgery Violetta 79959.1.[address] 3.430.2.7 Hospit a .3.786747 l .8 2022-05-23 2022-05-23 Office Shekhar Vela 1.2.840.1 [id number] Methodi 09:30:00 14:28:36 [address] B. [address]73.1.[address] 3.430.2.7 Hospit a .3.298089 l .8 2022-05-23 2022-05-23 Office Shekhar Vela 1.2.840.1 [id number] Methodi 09:30:00 14:28:36 [address] B. [address]9741.1.[address] 3.430.2.7 Hospit a .3.372544 l .8 2022-05-23 2022-05-23 Travel 1.2.840.1 1.2.184.579 3212 [id number] Methodi 00:00:00 00:00:[address] 3.430.2.7 0.2.7.3.698 spita .3.200750 084.8 l .8 2022-05-23 2022-05-23 Outpatient SHEKHAR VELA [facility] [id number] Bieber 00:00:00 00:00:[address] 2022-05-23 2022-05-23 Travel 1.2.840.1 1.2.422.117 9803 [id number] Methodi 00:00:00 00:00:[address] 3.430.2.7 0.2.7.3.698 Ho spita .3.167217 084.8 l .8 2021-01-27 2021-01-27 Outpatient MCFARLANE, [facility] [id number] Bieber 00:00:00 00:00:00 OMID [address] 2021-01-17 2021-01-17 Outpatient MCFARLANE, [facility] [id number] Bieber 00:00:00 00:00:00 OMID [address] 2020-09-12 2020-09-14 Inpatient TRAV, [facility] 684 [id number] Bieber 00:00:00 00:00:00 PAYTON [address] 2020-08-18 2020-08-20 Inpatient TRAV, [facility] [id number] Bieber 00:00:00 00:00:00 PAYTON [address] 2020-08-15 2020-08-15 Outpatient TRAV, [facility] [id number] Bieber 00:00:00 00:00:[address] PAYTON [address] Results Test Description Test Time Test Comments Results Result Comments Source SARS-CoV-2 (COVID-19) RNA [Presence] in Respiratory sp ecimen by 2020-08-15 21:41:50 GABBY with probe detection Test Item Value Reference Range Interpretation Comme nts SARS-CoV-2 (COVID-19) RNA [Presence] in Respiratory Not detected No t-Detected specimen by GABBY with probe detection (test code = 21330-5) [facility]
--- NOTE | 2022-12-19 20:17 | RAD REPORT ---
EXAM DESCRIPTION: CT - CTHCSPWOC - 12/19/2022 8:08 pm CLINICAL HISTORY: Trauma, head and neck injury. TRAUMA COMPARISON: C Spine Wo Con dated 01/30/2018 TECHNIQUE: Axial 5 mm thick images of the head were obtained. Axial 2 mm thick images of the cervical spine were obtained with sagittal and coronal reconstruction images generated and reviewed. All CT scans are performed using dose optimization technique as appropriate and may include automated exposure control or mA/KV adjustment according to patient size. FINDINGS: CT HEAD WITHOUT CONTRAST: No acute hemorrhage, hydrocephalus or extra-axial collection is identified.Mild generalized brain atr ophy is present with mild periventricular and deep white matter chronic microvascular ischemic change s.No areas of brain edema or midline shift. The paranasal sinuses and mastoids are clear.The calvarium is intact. Left vertebral atherosclerosis. CT CERVICAL SPINE WITHOUT CONTRAST: No fracture or subluxation.Anterior fusion hardware spans C4-6.No prevertebral soft tissues swelling is identified. IMPRESSION: No acute intracranial or cervical spine findings.
--- NOTE | 2022-12-19 21:15 | EDPHYS ---
Physician Documentation [facility] Name: Pooja Lawrence Age: 77 yrs Sex: Female : 1945 Arrival Date: 12/19/2022 Time: 18:50 Bed 7 Private MD: ED Physician Rahul Bee HPI: 12/19 19:04 This 77 yrs old Female presents to ER via Unassigned with complaints of Neck sp4 Problem, Stiff Neck. 19:27 77 year old female states she has fallen on Saturday12/12/2022 , forward at her house sp4 and sustained neck injury with posterior neck pain that has not improved since then. Patient denied paralysis or weakness after the fall. but the neck pain is moderate and persistent . Historical: - Allergies: 19:30 Ciprofloxacin (Respiratory distress); mb9 19:30 Demerol (Upset stomach); mb9 19:30 Morphine (Upset stomach); mb9 19:30 Sulfa (Sulfonamide Antibiotics) (Respiratory distress); mb9 19:30 Ultram; mb9 - Home Meds: 19:30 Metoprolol Tartrate Oral [Active]; mb9 - PMHx: 19:30 Hypertension; mitral valve prolapse; scoliosis; mb9 - PSHx: 19:30 Appendectomy; section; left arm surgery; Tonsillectomy; mb9 - Immunization history:: Adult Immunizations up to date. - Social history:: Smoking status: Patient denies any tobacco usage or history of. ROS: 21:09 Constitutional: Negative for fever, chills, and weight loss, Eyes: Negative for injury, sp4 pain, redness, and discharge, ENT: Negative for injury, pain, and discharge, Neck: Negative for swelling, positive for posterior neck pain, neck stiffness, neck injury 1 week ago after a fall Cardiovascular: Negative for chest pain, palpitations, and edema, Respiratory: Negative for shortness of breath, cough, wheezing, and pleuritic chest pain, Abdomen/GI: Negative for abdominal pain, nausea, vomiting, diarrhea, and constipation, Back: Negative for injury and pain, : Negative for injury, bleeding, discharge, and swelling, MS/Extremity: Negative for injury and deformity, Skin: Negative for injury, rash, and discoloration, Neuro: Negative for headache, weakness, numbness, tingling, and seizure, Psych: Negative for depression, anxiety, Allergy/Immunology: Negative for hives, rash, and allergies, Endocrine: Negative for neck swelling, polydipsia, polyuria, polyphagia, and marked weight changes, Hematologic/Lymphatic: Negative for swollen nodes, abnormal bleeding, and unusual bruising. Exam: 21:11 Constitutional: This is a well developed, well nourished patient who is awake, alert, sp4 and in no acute distress. Head/Face: Normocephalic, atraumatic. Eyes: Pupils equal round and reactive to light, extra-ocular motions intact. Lids and lashes normal. Conjunctiva and sclera are not injected. Cornea within normal limits. Periorbital areas with no swelling, redness, or edema. ENT: Nares patent. No nasal discharge, no septal abnormalities noted. Tympanic membranes are normal and external auditory canals are clear. Oropharynx with no redness, swelling, or masses, exudates, or evidence of obstruction, uvula midline. Mucous membranes moist. Neck: Trachea midline, no thyromegaly or masses palpated, and no cervical lymphadenopathy. Supple, without nuchal rigidity, or vertebral point tenderness. No Meningismus. Range of motion decreased secondary to neck pain, there is no midline posterior neck tenderness, there is no neurologic compromise Chest/axilla: Normal chest wall appearance and motion. Nontender with no deformity. No lesions are appreciated. Cardiovascular: Regular rate and rhythm with a normal S1 and S2. No gallops, murmurs, or rubs. Normal PMI, no JVD. No pulse deficits. Respiratory: Lungs have equal breath sounds bilaterally, clear to auscultation and percussion. No rales, rhonchi or wheezes noted. No increased work of breathing, no retractions or nasal flaring. Abdomen/GI: Soft, non-tender, with normal bowel sounds. No distension or tympany. No guarding or rebound. No evidence of tenderness throughout. Back: No spinal tenderness. No costovertebral tenderness. MS/ Extremity: Pulses equal, no cyanosis. Neurovascular intact. Full, normal range of motion. Neuro: Awake and alert, GCS 15, oriented to person, place, time, and situation. Cranial nerves II-XII grossly intact. Motor strength 5/5 in all extremities. Sensory grossly intact. Psych: Awake, alert, with orientation to person, place and time. Behavior, mood, and affect are within normal limits. Vital Signs: 19:28 BP 151 / 81; Pulse 89; Resp 16; Temp 97.8; Pulse Ox 100% ; Weight 52.16 kg; Height 5 mb9 ft. 5 in. ; Pain 8/10; 19:28 Body Mass Index 19.14 (52.16 kg, 165.1 cm) mb9 19:28 Pain Scale: Adult mb9 MDM: 19:25 Patient medically screened. sp4 21:11 Differential diagnosis: arthritis, C-Spine Fracture Cervical Disc Herniation Cervical sp4 Discogenic Pain Cervical Facet Syndrome Cervical Raiculopathy Cervical Spondylosis cervical strain, Degenerative Disc Disease. Data reviewed: vital signs, nurses notes, radiologic studies, CT scan. ED course: CT C-spine and CT head with no IV contrast reveals no acute intracranial abnormality, no fracture or subluxation of the C-spine, anterior fusion hardware spans C4-C6, no prevertebral soft tissue swelling identified. 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 12/19 19:25 Order name: CT Head C Spine; Complete Time: 21:05 sp4 Administered Medications: No medications were administered Disposition Summary: 12/19/22 21:14 Discharge Ordered Location: Home sp4 Problem: new sp4 Symptoms: are unchanged sp4 Condition: Stable sp4 Diagnosis - Sprain of joints and ligaments of other parts of neck, initial encounter sp4 - Fall (on) (from) unspecified stairs and steps sp4 - Acute neck pain and acute neck sprain as a result of the fall sp4 Followup: sp4 - With: Private Physician - When: 7 - 10 days - Reason: Re-evaluation by your physician Forms: - Medication Reconciliation Form sp4 - Thank You Letter sp4 - Antibiotic Education sp4 - Prescription Opioid Use sp4 Signatures: Dispatcher [employer] EDYoselin Juan RN RN mb9 Rahul Bee MD MD sp4
--- NOTE | 2022-12-19 21:15 | ER ---
Nurse's Notes [facility] Name: Pooja Lawrence Age: 77 yrs Sex: Female : 1945 Arrival Date: 12/19/2022 Time: 18:50 Bed 7 Private MD: Diagnosis: Sprain of joints and ligaments of other parts of neck, initial encounter;Fall (on) (from) unspecified stairs and steps;Acute neck pain and acute neck sprain as a result of the fall Presentation: 12/19 19:28 Chief complaint: Patient states: "I leaned over a flower pot and hit my neck on the mb9 side of it. It hurts all across the back of my neck". Coronavirus screen: Vaccine status: Patient reports receiving the 2nd dose of the covid vaccine. Ebola Screen: No symptoms or risks identified at this time. Initial Sepsis Screen: Does the patient meet any 2 criteria? No. Patient's initial sepsis screen is negative. Does the patient have a suspected source of infection? No. Patient's initial sepsis screen is negative. Risk Assessment: Do you want to hurt yourself or someone else? Patient reports no desire to harm self or others. Onset of symptoms was December 12, 2022. 19:28 Method Of Arrival: Ambulatory mb9 19:28 Acuity: THOMAS 4 mb9 Historical: - Allergies: 19:30 Ciprofloxacin (Respiratory distress); mb9 19:30 Demerol (Upset stomach); mb9 19:30 Morphine (Upset stomach); mb9 19:30 Sulfa (Sulfonamide Antibiotics) (Respiratory distress); mb9 19:30 Ultram; mb9 - Home Meds: 19:30 Metoprolol Tartrate Oral [Active]; mb9 - PMHx: 19:30 Hypertension; mitral valve prolapse; scoliosis; mb9 - PSHx: 19:30 Appendectomy; section; left arm surgery; Tonsillectomy; mb9 - Immunization history:: Adult Immunizations up to date. - Social history:: Smoking status: Patient denies any tobacco usage or history of. Vital Signs: 19:28 BP 151 / 81; Pulse 89; Resp 16; Temp 97.8; Pulse Ox 100% ; Weight 52.16 kg; Height 5 mb9 ft. 5 in. ; Pain 8/10; 19:28 Body Mass Index 19.14 (52.16 kg, 165.1 cm) mb9 19:28 Pain Scale: Adult mb9 ED Course: 18:50 Patient arrived in ED. mr 19:04 Rahul Bee MD is Attending Physician. sp4 19:30 Triage completed. mb9 19:31 Arm band placed on. mb9 20:09 CT Head C Spine In Process Unspecified. EDMS Administered Medications: No medications were administered Outcome: 21:14 Discharge ordered by . sp4 Signatures: Dispatcher [employer] EDMS Yoselin Castañeda mr Deluca, Yoselin Yun RN RN mb9 Rahul Bee MD MD sp4
[2022-12-19] MEDS ORDERED: methocarbamoL 500 MG TAB ONE (21:27)
[2022-12-19] MEDS ORDERED: TRAMADOL HCL 50 MG TAB ONE (21:28)
[2022-12-19] MEDS ORDERED: IBUPROFEN 400 MG TAB ONE (21:28)
[2022-12-19] MEDS ORDERED: ONDANSETRON 4 MG (ODT) TAB ONE (21:28)
[2022-12-20 06:03] VITALS: BP 151/81; TEMP 97.8; O2SAT 100
== END 2022-12-19 21:40 | disposition home or self-care (01) ==
LOC: ER 18:46
DX: S13.8XXA Sprain of joints and ligaments of other parts of neck, initial encounter (principal); W10.9XXA Fall (on) (from) unspecified stairs and steps, initial encounter; I10 Essential (primary) hypertension; Z88.1 Allergy status to other antibiotic agents; Z88.2 Allergy status to sulfonamides; Z88.5 Allergy status to narcotic agent
CPT/HCPCS: 70450; 72125; Q0162

== ENCOUNTER 2023-06-22 18:17 | Inpatient (IN) | payer OTHER, MEDICARE ==
--- OUTSIDE RECORDS SUMMARY | 2023-06-22 18:22 | XMS REPORT | Continuity of Care Document ---
:1945 Author Organization [facility] t Address [address] [facility] 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 00:00: Hospita involving involving 00 [place] 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 [...] Can marilynn e Methodi teroids ty to [address] (Glucoco adverse 00:00: pills in [...] Shortness Of Methodi es ty to Breath 728 st adverse 00:00: Hospita reaction 00 l s to drug Sulfamet Propensi Active Rash Method i hoxazole ty to 05-03 st adverse 00:00: Hospita reaction 00 l s to drug Family History Family Member Diagnosis Comments Start Date Stop Date Source Natural father Aortic aneurysm [facility] Natural mother COPD [facility] Social History Social Habit Start Date Stop Date Quantity Comments Source History of tobacco Cigarette Smoker [facility] use [facility] Gender identity [facility] Sexual orientation [facility] History of Social 2022-12-17 2022-12-[address] function 00:00:00 00:00:00 Hospital Alcohol intake 2022-07-06 2022-07-06 Ex-drinker [facility] 00:00:00 00:00:00 (finding) Hospital Tobacco use and 2020-08-13 2020-08-13 Smokeless [facility] exposure 00:00:00 00:00:00 tobacco non-user Hospital Cigarettes smoked 2020-08-13 2020-08-[address] current (pack per 00:00:00 00:00:00 Hospita l day) - Reported Cigarette 2020-08-13 2020-08-13 [facility] pack-years 00:00:00 00:00:00 Hospital Alcohol Comment 2020-08-13 2020-08-13 YEARLY A 1/[address] 00:00:00 00:00:00 GLASS OF WINE AT [facility] Sex Assigned At [birth year] [facility] 00:00:00 00:00:00 Hospital Smoking Status Start Date Stop Date Source Ex-smoker 2020-08-13 00:00:00 2020-08-13 00:00:00 [facility] Medications Ordered Filled Start Stop Current Ordering Indication Dosage Frequency Signature Comments Components Source Medication Medication Date Date Medication? Clinician (SIG) Name Name meloxicam 2022- No 7.5mg QD Take 1 Meth nino (Mobic) 7.5 10-[address] mg tablet 00:00: 05:59 (7.5 mg Hosp mark 00 :00 total) by l mouth daily for 30 days. meloxicam 2022- No 7.5mg QD Take 1 Meth nino (Mobic) 7.5 10-[address] mg tablet 00:00: 05:59 (7.5 mg Hosp mark 00 :00 total) by l mouth daily for 30 days. meloxicam 2022- No 7.5mg QD Take 1 Meth nino (Mobic) 7.5 -11 02-[address] mg tablet 00:00: 05:59 (7.5 mg Hosp mark 00 :00 total) by l mouth daily for 30 days. meloxicam 2022- No 7.5mg QD Take 1 Meth nino (Mobic) 7.5 -11 02-[address] mg tablet 00:00: 05:59 (7.5 mg Hosp mark 00 :00 total) by l mouth daily for 30 days. [place] 2021-20[place]- [place] [id number] 1{tbl} Q6H Take 1 Methodi -acetaminop 9-27 10-[address] hen (Amtec) 00:00: 04:59 mouth Hosp mark 10-325 mg 00 :00 every 6 l per tablet (six) hours as needed for moderate pain for up to 7 days .acute pain. Max Daily Amount: 4 tablets HYDROcodone 2021-0 2021- [place] [id number] 1{tbl} Q6H Take 1 Methodi -acetaminop 9-27 10-[address] hen (Amtec) 00:00: 04:59 mouth Hosp mark 10-325 mg 00 :00 every 6 l per tablet (six) hours as needed for moderate pain for up to 7 days .acute pain. Max Daily Amount: 4 tablets HYDROcodone 2021-0 2021- No [id number] 1{tbl} Q6H Take 1 Methodi -acetaminop 9-27 10-[address] hen (Amtec) 00:00: 04:59 mouth Hosp mark 10-325 mg 00 :00 every 6 l per tablet (six) hours as needed for moderate pain for up to 7 days .acute pain. Max Daily Amount: 4 tablets HYDROcodone 2021-0 2021- No [id number] 1{tbl} Q6H Take 1 Methodi -acetaminop 9-27 10-[address] hen SCYFIX) 00:00: 04:59 mouth Hosp mark 10-325 mg 00 :00 every 6 l per tablet (six) hours as needed for moderate pain for up to 7 days .acute pain. Max Daily Amount: 4 tablets HYDROcodone 2022-0 2021- [place] [id number] 1{tbl} Q6H Take 1 Methodi -acetaminop 9-27 10-[address] hen ([place]) 00:00: 04:59 mouth Hosp mark 10-325 mg 00 :00 every 6 l per tablet (six) hours as needed for moderate pain for up to 7 days .acute pain. Max Daily Amount: 4 tablets simvastatin 2020-0 Yes 40mg QD Take 40 mg Methodi [...] st mg tablet 00:00: daily. Hospit a 00 l metoprolol 2015-0 Yes 25mg QD Take 25 mg M ethodi tartrate 6-[address] (LOPRESSOR) 00:00: every Hospi ta 25 MG 00 evening. l tablet metoprolol 2016-0 Yes 25mg QD Take 25 mg M ethodi tartrate 6-[address] (LOPRESSOR) 00:00: every Hospi ta 25 MG 00 evening. l tablet metoprolol 2016-0 Yes 25mg QD Take 25 mg M ethodi tartrate 6-[address] (LOPRESSOR) 00:00: every Hospi ta 25 MG 00 evening. l tablet metoprolol 2016-0 Yes 25mg QD Take 25 mg M ethodi tartrate 6-[address] (LOPRESSOR) 00:00: every Hospi ta 25 MG 00 evening. l tablet metoprolol 2016-0 Yes 25mg QD Take 25 mg M ethodi tartrate 6-[address] (LOPRESSOR) 00:00: every Hospi ta 25 MG 00 evening. l tablet Immunizations Ordered Immunization Filled Immunization Date Status Commen ts Source Name Name EDUARD COVID-19 [facility] 2021-10-02 Completed [facility]ist VACCINATION 00:00:00 [facility] EDUARD COVID-19 MRNA 2021-10-02 Completed [facility] odist VACCINATION 00:00:00 [facility] EDUARD COVID-19 MRNA 2021-10-02 Completed Meth odist VACCINATION 00:00:00 [facility] EDUARD COVID-19 MRNA 2021-10-02 Completed Meth odist VACCINATION 00:00:00 [facility] EDUARD COVID-19 MRNA 2021-10-02 Completed Meth odist VACCINATION 00:00:00 [facility] JANNETHID19 2021-01-09 Completed Methodis t MRNA VACCINATION 00:00:00 [facility] JANNETHID19 2021-01-09 Completed Methodis t MRNA VACCINATION 00:00:00 [facility] JANNETHID19 2021-01-09 Completed Methodis t MRNA VACCINATION 00:00:00 [facility]09 Com[facility] t MRNA VACCINATION 00:00:00 [facility] 2021-01-09 Com[facility] 2020[facility]12 Com[facility] 2020-12-12 Completed Method[facility] t MRNA VACCINATION 00:00:00 [facility] JANNETHID19 2020-12-12 Completed Method[facility] t MRNA VACCINATION [facility]:00[facility] 2020-12-12 Completed [facility]ACC[facility]:00[facility] 2020-12-12 Completed [facility] t MRNA VACCINATION 00:00:00 Hospital Vital Signs Vital Name Observation Time Observation Value Comments Source Systolic blood 2022-07-05 17:26:00 139 mm[Hg] [facility] pressure Diastolic blood 2022-07-05 17:26:00 65 mm[Hg] [facility] pressure Heart rate 2022-07-05 17:26:00 75 /min [facility] Body temperature 2022-07-05 17:26:00 36.11 Na [facility] Respiratory rate 2022-07-05 17:26:00 17 /min [facility] Oxygen saturation in 2022-07-05 17:26:00 96 /min [facility] Arterial blood by Pulse oximetry Body height 2022-07-05 11:43:00 165.1 cm [facility] Body weight 2022-07-05 11:43:00 52.362 kg [facility] BMI 2022-07-05 11:43:00 19.21 kg/m2 [facility] Procedures Procedure Date / Time Performing Clinician Source Performed XR SHOULDER 2+ VW RIGHT 2022-10-17 21:38:26 [facility] 2022-10-17 21:10:00 [facility] Shekhar [facility] ASPIR&/INJ MAJOR JT/BURSA W/O US NH AN ELECTIVE 2022-07-05 12:23:00 Krishna Camilo [facility] ENDOTRACHEAL AIRWAY Nicholas ARTHROSCOPY, SHOULDER 2022-07-05 12:13:00 [facility] NERVE BLOCK, 2022-07-05 12:07:02 Yuko Cardenas [facility] Darryl spital INTERSCALENE W IMG GUID XR SHOULDER 2+ VW RIGHT 2022-05-23 15:13:00 [facility] UPPER EXTREMITY 2021-12-18 17:37:12 [facility] EXTERNAL STUDY Plan of Care Planned Activity Planned Date Details Comments Source Future Scheduled 2023-06-[address] [facility] Test 20:44:54 malignant neoplasm of colon (procedure) [code = 812201953] Future Scheduled 2023-06-[address] [facility] Test 20:44:54 malignant neoplasm of colon (procedure) [code = 916336633] Future Scheduled 2023-06-[address] [facility] Test 20:44:54 malignant neoplasm of colon (procedure) [code = 282426457] Future Scheduled 2023-06-08 65+ PNEUMOCOCCAL [facility] Test 20:44:54 VACCINE (1 - PCV) [code = 65+ PNEUMOCOCCAL VACCINE (1 - PCV)] Future Scheduled 2023-06-08 Hepatitis C screening [facility] Test 20:44:54 (procedure) [code = 116140825] Future Scheduled 2023-06-[address] [facility] Test 20:44:54 SCREENING [code = BREAST CANCER SCREENING] Future Scheduled 2023-06-[address] [facility] Test 20:44:54 malignant neoplasm of colon (procedure) [code = 900791690] Future Scheduled 2023-06-08 Screening for [facility] Test 20:44:54 malignant neoplasm of colon (procedure) [code = 975263789] Future Scheduled 2023-06-08 SHINGLES VACCINES (1 Met [facility] Test 20:44:54 of 2) [code = SHINGLES VACCINES (1 of 2)] Future Scheduled 2023-06-08 COVID-19 VACCINE (5 - [facility] Test 20:44:54 Moderna series) [code = COVID-19 VACCINE (5 - Moderna series)] Future Scheduled 2023-06-08 INFLUENZA VACCINE (#1) M [facility] Test 20:44:54 [code = INFLUENZA VACCINE (#1)] Future Scheduled 2023-06-[address] [facility] Test 20:44:54 malignant neoplasm of colon (procedure) [code = 442487338] Future Scheduled 2023-06-[address] [facility] Test 20:44:54 malignant neoplasm of colon (procedure) [code = 560740434] Future Scheduled 2023-06-[address] [facility] Test 20:44:54 malignant neoplasm of colon (procedure) [code = 965852891] Future Scheduled 2023-06-08 65+ PNEUMOCOCCAL [facility] Test 20:44:54 VACCINE (1 - PCV) [code = 65+ PNEUMOCOCCAL VACCINE (1 - PCV)] Future Scheduled 2023-06-08 Hepatitis C screening [facility] Test 20:44:54 (procedure) [code = 987790560] Future Scheduled 2023-06-[address] [facility] Test 20:44:54 SCREENING [code = BREAST CANCER SCREENING] Future Scheduled 2023-06-[address] [facility] Test 20:44:54 malignant neoplasm of colon (procedure) [code = 710454826] Future Scheduled 2023-06-[address] [facility] Test 20:44:54 malignant neoplasm of colon (procedure) [code = 455858528] Future Scheduled 2023-06-08 SHINGLES VACCINES (1 Met [facility] Test 20:44:54 of 2) [code = SHINGLES VACCINES (1 of 2)] Future Scheduled 2023-06-08 COVID-19 VACCINE (5 - [facility] Test 20:44:54 Moderna series) [code = COVID-19 VACCINE (5 - Moderna series)] Future Scheduled 2023-06-08 INFLUENZA VACCINE (#1) [facility] Test 20:44:54 [code = INFLUENZA VACCINE (#1)] Future Scheduled 2023-01-16 65+ PNEUMOCOCCAL [facility] Test 17:56:27 VACCINE (1 - PCV) [code = 65+ PNEUMOCOCCAL VACCINE (1 - PCV)] Future Scheduled 2023-01-16 Hepatitis C screening [facility] Test 17:56:27 (procedure) [code = 476586488] Future Scheduled 2023-01-16 BREAST CANCER [facility] Test 17:56:27 SCREENING [code = BREAST CANCER SCREENING] Future Scheduled 2023-01-16 COLONOSCOPY SCREENING [facility] Test 17:56:27 [code = COLONOSCOPY SCREENING] Future Scheduled 2023-01-16 SHINGLES VACCINES (1 [facility] Test 17:56:27 of 2) [code = SHINGLES VACCINES (1 of 2)] Future Scheduled 2023-01-16 INFLUENZA VACCINE [facility] Hospital Test 17:56:27 [code = INFLUENZA VACCINE] Future Scheduled 2022-12-19 65+ PNEUMOCOCCAL [facility] Test 17:19:35 VACCINE (1 - PCV) [code = 65+ PNEUMOCOCCAL VACCINE (1 - PCV)] Future Scheduled 2022-12-19 Hepatitis C screening [facility] Test 17:19:35 (procedure) [code = 619583449] Future Scheduled 2022-12-19 BREAST CANCER [facility] Test 17:19:35 SCREENING [code = BREAST CANCER SCREENING] Future Scheduled 2022-12-19 COLONOSCOPY SCREENING [facility] Test 17:19:35 [code = COLONOSCOPY SCREENING] Future Scheduled 2022-12-19 SHINGLES VACCINES (1 Met [facility] Test 17:19:35 of 2) [code = SHINGLES VACCINES (1 of 2)] Future Scheduled 2022-12-19 INFLUENZA VACCINE [facility] Test 17:19:35 [code = INFLUENZA VACCINE] Future Scheduled 2022-07-18 HEPATITIS B VACCINES [facility] Test 13:49:14 (1 of 3 - 3-dose series) [code = HEPATITIS B VACCINES (1 of 3 - 3-dose series)] Future Scheduled 2022-07-18 65+ PNEUMOCOCCAL [facility] Test 13:49:14 VACCINE (1 - PCV) [code = 65+ PNEUMOCOCCAL VACCINE (1 - PCV)] Future Scheduled 2022-07-18 Hepatitis C screening [facility] Test 13:49:14 (procedure) [code = 279546660] Future Scheduled 2022-07-[address] [facility] Test 13:49:14 SCREENING [code = BREAST CANCER SCREENING] Future Scheduled 2022-07-18 COLONOSCOPY SCREENING [facility] Test 13:49:14 [code = COLONOSCOPY SCREENING] Future Scheduled 2022-07-18 SHINGLES VACCINES (1 Met [facility] Test 13:49:14 of 2) [code = SHINGLES VACCINES (1 of 2)] Future Scheduled 2022-07-18 INFLUENZA VACCINE [facility] Test 13:49:14 [code = INFLUENZA VACCINE] Encounters Start End Encounter Admission Attending Care Care Encounter Source Date/Time Date/Time Type Type Clinicians Facility Department ID [facility]-30 [id number] 10[facility]06:04 [facility] 2022-10-17 2022-10-17 Office Shekhar Vela 1.2.840.1 [id number] Methodi 15:10:00 16:20:31 [address]. [address]25.1.[address] 3.430.2.7 Hospit a .3.797876 l .8 2022-10-17 2022-10-17 Office Shekhar Vela 1.2.840.1 [id number] Methodi 15:10:00 16:20:31 [address]. [address]24.1.[address] 3.430.2.7 Hospit a .3.167413 l .8 2022-10-17 2022-10-17 Travel 1.2.840.1 1.2.692.767 9447 [id number] Methodi 00:00:00 00:00:[address] 3.430.2.7 0.2.7.3.698 Ho spita .3.401820 084.8 l .8 2022-10-17 2022-10-17 Outpatient DANELINAY [facility] [id number] [place] 00:00:00 00:00:[address] 2022-10-17 2022-10-17 Travel 1.2.840.1 1.2.643.567 [id number] [id number] Methodi 00:00:00 00:00:[address] 3.430.2.7 0.2.7.3.698 Ho spita .3.729045 084.8 l .8 2022-09-19 2022-09-19 [id number]30[facility]00 Pre-Reg Neurology 00 l Vance Blanchard 2022-08-10 2022-08-10 Travel 1.2.840.1 1.2.955.753 3543 [id number] Methodi 00:00:00 00:00:[address] 3.430.2.7 0.2.7.3.698 Ho spita .3.324605 084.8 l .8 2022-08-10 2022-08-10 Travel 1.2.840.1 1.2.832.152 8470 [id number] Methodi 00:00:00 00:00:[address] 3.430.2.7 0.2.7.3.698 Ho spita .3.057742 084.8 l .8 2022-07-18 2022-07-18 Office Vela Shekhar 1.2.840.1 [id number] Methodi 09:00:00 11:24:45 [place] [address]. [address]229.1.[address] 3.430.2.7 Hospit a .3.451897 l .8 2022-07-18 2022-07-18 Office Shekhar Vela 1.2.840.1 [id number] Methodi 09:00:00 11:24:45 [address] B. [address]1484.1.[address] 3.430.2.7 Hospit a .3.973561 l .8 2022-07-18 2022-07-18 Travel 1.2.840.1 1.2.009.941 7528 [id number] Methodi 00:00:00 00:00:[address] 3.430.2.7 0.2.7.3.698 Ho spita .3.741829 084.8 l .8 2022-07-18 2022-07-18 Travel 1.2.840.1 1.2.784.127 8806 [id number] Methodi 00:00:00 00:00:[address] 3.430.2.7 0.2.7.3.698 Ho spita .3.657418 084.8 l .8 2022-07-06 2022-07-06 [facility] 1.2.840.1 [id number] Methodi 00:00:00 00:00:00 Johanny 10727.1.1 371 s t R. 3.430.2.7 Hospit a .3.385573 l .8 2022-07-06 2022-07-06 Ruben Garcia 1.2.840.1 [id number] 2099 [id number] Methodi 00:00:00 00:00:00 Only Violetta 12776.1.[address] 3.430.2.7 Hospit a .3.812712 l .8 2022-07-06 2022-07-06 [facility] 1.2.840.1 [id number] Methodi 00:00:00 00:00:00 Johanny 45369.1.1 371 s t R. 3.430.2.7 Hospit a .3.279714 l .8 2022-07-06 2022-07-06 Ruben Garcia 1.2.840.1 [id number] 2099 [id number] Methodi 00:00:00 00:00:00 Only Violetta 21448.1.[address] 3.430.2.7 Hospit a .3.830459 l .8 2022-07-05 2022-07-05 [facility] Shekhar Vela 1.2.840.1 [id number] Methodi 06:02:00 23:59:00 Encounter B[address]19.1.[address] 3.430.2.7 Hospit a .3.897133 l .8 2022-07-05 2022-07-05 [facility] Shekhar Vela 1.2.840.1 [id number] Methodi 06:02:00 23:59:00 Encounter B[address]45.1.[address] 3.430.2.7 Hospit a .3.334546 l .8 2022-07-05 2022-07-05 Anesthesia Nicolle Quick 1.2.840.1 [id number] Methodi 07:13:00 11:23:00 Event Johanny Barbour 96649.1.[address] 3.430.2.7 Hospit a .3.429224 l .8 2022-07-05 2022-07-05 Anesthesia Nicolle Quick 1.2.840.1 [id number] Methodi 07:13:00 11:23:00 Event Johanny Barbour 34315.1.[address] 3.430.2.7 Hospit a .3.604904 l .8 2022-07-05 2022-07-05 Surgery Shekhar Vela 1.2.840.1 [id number] Methodi 07:15:00 11:00:[address] 3.430.2.7 Hospit a .3.444539 l .8 2022-07-05 2022-07-05 Surgery Shekhar Vela 1.2.840.1 [id number] [id number] Methodi 07:15:00 11:00:[address] 3.430.2.7 Hospit a .3.330115 l .8 2022-07-05 2022-07-05 Travel 1.2.840.1 1.2.362.378 0983 [id number] Methodi 00:00:00 00:00:[address] 3.430.2.7 0.2.7.3.698 Ho spita .3.918869 084.8 l .8 2022-07-05 2022-07-05 Travel 1.2.840.1 1.2.660.060 6456 [id number] Methodi 00:00:00 00:00:[address] 3.430.2.7 0.2.7.3.698 Ho spita .3.567991 084.8 l .8 2022-07-03 2022-07-03 Refill Jose, 1.2.840.1 [id number] Methodi 00:00:00 00:00:[address] 3.430.2.7 Hospit a .3.354770 l .8 2022-07-03 [facility], 1.2.840.1 [id number] Methodi 00:00:00 00:00:[address] 3.430.2.7 Hospit a .3.594659 l .8 2022-07-02 2022-07-02 Telephone Sterling, 1.2.840.1 [id number] Methodi 00:00:00 00:00:[address] 3.430.2.7 Hospit a .3.075538 l .8 2022-07-02 2022-07-02 Telephone Sterling, 1.2.840.1 [id number] [id number] Methodi 00:00:00 00:00:[address] 3.430.2.7 Hospit a .3.938956 l .8 2022-06-13 2022-06-13 Shekhar Green 1.2.840.1 [id number] Methodi 10:31:53 23:59:00 Encounter B. [address]642.1.[address] 3.430.2.7 Hospit a .3.962751 l .8 2022-06-13 2022-06-13 Orders Shekhar Vela 1.2.840.1 [id number] [id number] Methodi 00:00:00 00:00:[address] B[address]30.1.[address] 3.430.2.7 Hospit a .3.008190 l .8 2022-06-08 2022-06-08 Orders Jose, 1.2.840.1 [id number] 2099 [id number] Methodi 00:00:00 00:00:00 Only Violetta 36771.1.[address] 3.430.2.7 Hospit a .3.005719 l .8 2022-05-28 2022-05-28 Orders Jose, 1.2.840.1 [id number] 2099 [id number] Methodi 00:00:00 00:00:00 Only Violetta 41533.1.[address] 3.430.2.7 Hospit a .3.775607 l .8 2022-05-28 2022-05-28 Prep for Jose, 1.2.840.1 [id number] [id number] Methodi 00:00:00 00:00:00 Surgery Violetta 98661.1.[address] 3.430.2.7 Hospit a .3.452283 l .8 2022-05-23 2022-05-23 Office Shekhar Vela 1.2.840.1 [id number] 180 [id number] Methodi 09:30:00 14:28:36 Visit B. 44355.1.[address] 3.430.2.7 Hospit a .3.564314 l .8 2022-05-23 2022-05-23 Outpatient SHEKHAR VELA [facility] 2099 [id number] [place] 00:00:00 00:00:[address] 2022-05-23 2022-05-23 Travel 1.2.840.1 1.2.887.688 3312 [id number] [facility]i 00:00:00 00:00:[address] 3.430.2.7 0.2.7.3.698 spita .3.290777 084.8 l .8 2021-01-27 2021-01-27 Outpatient [facility], [facility] [id number] [place] 00:00:00 00:00:00 [facility] [address] 2021-01-17 2021-01-17 Outpatient [facility], [facility] [id number] [place] 00:00:00 00:00:00 [facility] [address] 2020-09-12 2020-09-14 Inpatient TRAV, [place] [id number] [place] 00:00:00 00:00:00 [place] [address] 2020-08-18 2020-08-20 Inpatient TRAV, [facility] [id number] [place] 00:00:00 00:00:00 [place] [address] 2020-08-15 2020-08-15 Outpatient TRAV, [facility] [id number] [place] 00:00:00 00:00:[address] [place] [address] Results Test Description Test Time Test Comments Results Result Comments Source SARS-CoV-2 (COVID-19) RNA [Presence] in Respiratory sp ecimen by 2020-08-15 21:41:50 GABBY with probe detection Test Item Value Reference Range Interpretation Comme nts SARS-CoV-2 (COVID-19) RNA [Presence] in Respiratory Not detected No t-Detected specimen by GABBY with probe detection (test code = 90059-0) [facility]
--- NOTE | 2023-06-22 19:34 | ER ---
Nurse's Notes [facility] Name: Pooja Lawrence Age: 77 yrs Sex: Female : 1945 Arrival Date: 06/22/2023 Time: 18:17 Bed 20 Private MD: Diagnosis: Fall on same level, unspecified;Repeated falls;Weakness;Fever, unspecified;Cellulitis of other parts of limb-RIGHT HAND/WRIST Presentation: 06/22 18:36 Chief complaint: Multiple falls over the last few days, does not recall details of hb fall, now c/o right wrist and hand pain. Daughter reports speech is slightly slurred and seems confused. Last seen normal by family 2 days ago. Bruising noted to left forehead, right hand and wrist swelling. Coronavirus screen: At this time, the client does not indicate any symptoms associated with coronavirus-19. Ebola Screen: No symptoms or risks identified at this time. Initial Sepsis Screen: Does the patient meet any 2 criteria? No. Patient's initial sepsis screen is negative. Does the patient have a suspected source of infection? No. Patient's initial sepsis screen is negative. Risk Assessment: Do you want to hurt yourself or someone else? Patient reports no desire to harm self or others. Onset of symptoms was June 22, 2023. 18:36 Method Of Arrival: Wheelchair hb 18:36 Acuity: THOMAS 2 hb Historical: - Allergies: 18:39 Ciprofloxacin (Respiratory distress); hb 18:39 Demerol (Upset stomach); hb 18:39 Morphine (Upset stomach); hb 18:39 Sulfa (Sulfonamide Antibiotics) (Respiratory distress); hb 18:39 Ultram; hb - Home Meds: 18:39 Metoprolol Tartrate Oral [Active]; hb - PMHx: 18:39 mitral valve prolapse; Hypertension; scoliosis; hb - PSHx: 18:39 Appendectomy; section; left arm surgery; Tonsillectomy; hb - Immunization history:: Adult Immunizations up to date. - Social history:: Smoking status: Patient denies any tobacco usage or history of. Screenin:38 [facility] ED Fall Risk Assessment (Adult) History of falling in the last 3 months, me1 including since admission Yes- fall prone (multiple falls) (3 pts) Confusion or Disorientation No (0 pts) Intoxicated or Sedated No (0 pts) Impaired Gait Yes (1 pt) Mobility Assist Device Used No (0 pt) Altered Elimination No (0 pt) Score/Fall Risk Level 3 or more points = High Risk Oriented to surroundings, Maintained a safe environment, Provided non-skid footwear, Hourly rounding (assess needs \T\ fall precautionary measures) done, Implemented a Fall Risk Plan of Care. Abuse screen: Denies threats or abuse. Nutritional screening: No deficits noted. Tuberculosis screening: No symptoms or risk factors identified. Assessment: 21:33 General: Appears uncomfortable, well groomed, well developed, well nourished, Behavior me1 is calm, cooperative, appropriate for age, Reports multiple falls over last few days. Patient doesn't recall details of fall but states that her right wrist and hand hurts now and shes had a headache off and on as well. Per daughter speech is slightly slurred and patient seems a little confused at times. Pain: Complains of pain in right arm and right hand Pain does not radiate. Pain currently is 4 out of 10 on a pain scale. Quality of pain is described as aching, tender, throbbing, Pain began 2-3 days ago. Is continuous, Aggravated by increased activity, repositioning. Neuro: Level of Consciousness is awake, alert, obeys commands, Oriented to person, place, time, situation, Appropriate for age Reference Services Head are equal bilaterally Moves all extremities. Gait is unsteady, Facial symmetry appears normal, Pupils are PERRLA. Cardiovascular: Capillary refill < 3 seconds Patient's skin is warm and dry. Respiratory: Airway is patent Respiratory effort is even, unlabored, Respiratory pattern is regular, symmetrical. GI: Patient currently denies diarrhea, nausea, pain, vomiting. : Denies burning with urination, urinary frequency. Derm: right wrist and hand is edematous, red and warm to the touch. Bruise noted to right face/eye. Vital Signs: 18:36 BP 139 / 69; Pulse 107; Resp 16; Temp 98.4; Pulse Ox 100% on R/A; Weight 49.9 kg; hb Height 5 ft. 5 in. ; Pain 5/10; 19:42 Temp 100.4(O); me1 20:30 BP 118 / 55; Pulse 97; Resp 1; Pulse Ox 96% on R/A; me1 20:30 BP 103 / 51; Pulse 101; Resp 17; Pulse Ox 100% on R/A; me1 22:01 BP 106 / 54; Pulse 97; Resp 18; Pulse Ox 96% on R/A; me1 22:18 BP 103 / 52; Pulse 67; Resp 16; Pulse Ox 97% on R/A; me1 18:36 Body Mass Index 18.30 (49.90 kg, 165.1 cm) hb 18:36 Pain Scale: Adult hb Sean Coma Score: 18:44 Eye Response: spontaneous(4). Motor Response: obeys commands(6). Verbal Response: nita oriented(5). Total: 15. NIH Stroke Scale Scores: 18:49 NIHSS Score: 0 nita ED Course: 18:20 Patient arrived in ED. im 18:27 Mikal Govea MD is Attending Physician. nita 18:39 Triage completed. hb 18:40 Arm band placed on. hb 18:46 Pretty Hodge, RN is Primary Nurse. me1 19:21 CT Traumagram (Head C Spine CAP wo con) In Process Unspecified. EDMS 19:32 Jasson Thomas MD is Hospitalizing Provider. nita 19:38 US Carotid Artery Bilateral In Process Unspecified. EDMS 19:55 Inserted saline lock: 22 gauge in right antecubital area, using aseptic technique. pf1 Blood collected. 19:58 Basic Metabolic Panel Sent. pf1 19:58 CBC with Diff Sent. pf1 19:58 LFT's Sent. pf1 19:58 Magnesium Sent. pf1 19:58 NT PRO-BNP Sent. pf1 19:58 PT-INR Sent. pf1 19:58 Troponin HS Sent. pf1 20:17 XRAY Chest (1 view) In Process Unspecified. EDMS 20:17 Hand Right 3 View XRAY In Process Unspecified. EDMS 20:17 Wrist Right 3 View XRAY In Process Unspecified. EDMS 20:20 Lactate w/ 2H reflex if indic. Sent. pf1 20:20 Blood Culture Adult (2) Sent. pf1 21:07 Strep Sent. me1 21:07 SARS RAPID Sent. me1 21:07 Flu Sent. me1 21:29 Urine Culture Sent. me1 21:29 Urinalysis w/ reflexes Sent. me1 21:31 CPK Sent. me1 21:38 Patient has correct armband on for positive identification. Bed in low position. Call me1 light in reach. Side rails up X2. Provided Education on: POC. Verbalized understanding.. 21:38 No provider procedures requiring assistance completed. Flushed right antecubital. me1 22:32 Patient admitted, IV remains in place. me1 Administered Medications: 19:43 CANCELLED (Duplicate Order): NS 0.9% IV 500 ml IV at bolus once nita 21:04 Drug: NS 0.9% IV 1000 ml Route: IV; Rate: 125 ml/hr; Site: right antecubital; me1 21:04 Drug: Acetaminophen PO 650 mg Route: PO; me1 21:40 Follow up: Response: No adverse reaction me1 21:04 Drug: NS 0.9% IV 1000 ml Route: IV; Rate: 1 bolus; Site: right antecubital; me1 21:30 Drug: foLIC Acid IVPB 1 mg Route: IVPB; Site: right antecubital; me1 21:40 Follow up: Response: No adverse reaction; IV Status: Completed infusion me1 21:30 Drug: Aspirin PO Chewable Tablet 162 mg Route: PO; me1 21:40 Follow up: Response: No adverse reaction me1 21:31 Drug: Piperacillin-Tazobactam IVPB 3.375 grams Route: IVPB; Infused Over: 60 mins; me1 Site: right antecubital; Medication: 21:39 VIS not applicable for this client. me1 Outcome: 19:33 Decision to Hospitalize by Provider. [facility] 22:32 Admitted to Med/surg accompanied by haylee, via stretcher, room 232, with chart, Report me1 called to JUDSON De León 22:32 Condition: stable 22:32 Instructed on the need for admit. 22:33 Patient left the ED. me1 NIH Stroke Scale - NIH Stroke Score Date: 06/22/2023 Time: 18:49 Total Score = 0 10. Dysarthria (speech clarity - read or repeat words) - 0(Normal) 11. Extinction and Inattention (visual/tactile/auditory/spatial/personal) - 0(No abnormality) 1a. Level of Consciousness (LOC) - 0(Alert) 1b. Level of Consciousness (LOC) (Month \T\ Age) - 0(Both) 1c. LOC Commands (Open \T\ Closes Eyes/Toe Former Stitchdowns) - 0(Both) 2. Best Gaze (Lateral Gaze Paresis) - 0(Normal) 3. Visual Field Loss - 0(No visual loss) 4. Facial Palsy - 0(Normal) 5a. Left Arm: Motor (10-second hold) - 0(No drift) 5b. Right Arm: Motor (10-second hold) - 0(No drift) 6a. Left Leg: Motor (5-second hold - always test supine) - 0(No drift) 6b. Right Leg: Motor (5-second hold - always test supine) - 0(No drift) 7. Limb Ataxia (finger/nose \T\ heel/kraft - test with eyes open) - 0(Absent) 8. Sensory Loss (pinprick arms/legs/face) - 0(Normal) 9. Best Language: Aphasia (description/naming/reading) - 0(No aphasia) Initials: nita Signatures: Dispatcher [employer] Mikal Lyles MD MD cha Baxter, Heather, RN RN Ginger Perez RN RN pf1 Romy Del Angel Michelle, RN RN me1
--- NOTE | 2023-06-22 19:34 | EDPHYS ---
Physician Documentation [facility] Name: Pooja Lawrence Age: 77 yrs Sex: Female : 1945 Arrival Date: 06/22/2023 Time: 18:17 Bed 20 Private MD: ED Physician Mikal Govea HPI: 06/22 18:41 This 77 yrs old Female presents to ER via Wheelchair with complaints of Fall nita Injury, Slurred Speech. 18:41 Details of fall: The patient fell from an upright position, while walking. Onset: The nita symptoms/episode began/occurred 3 day(s) ago. Associated injuries: The patient sustained injury to the head, right wrist and right hand, decreased range of motion, painful injury, swelling. Severity of symptoms: At their worst the symptoms were mild, in the emergency department the symptoms are unchanged. Historical: - Allergies: 18:39 Ciprofloxacin (Respiratory distress); hb 18:39 Demerol (Upset stomach); hb 18:39 Morphine (Upset stomach); hb 18:39 Sulfa (Sulfonamide Antibiotics) (Respiratory distress); hb 18:39 Ultram; hb - Home Meds: 18:39 Metoprolol Tartrate Oral [Active]; hb - PMHx: 18:39 mitral valve prolapse; Hypertension; scoliosis; hb - PSHx: 18:39 Appendectomy; section; left arm surgery; Tonsillectomy; hb - Immunization history:: Adult Immunizations up to date. - Social history:: Smoking status: Patient denies any tobacco usage or history of. ROS: 18:42 Constitutional: Negative for fever, chills, and weight loss, Eyes: Negative for injury, nita pain, redness, and discharge, ENT: Negative for injury, pain, and discharge, Neck: Negative for injury, pain, and swelling, Cardiovascular: Negative for chest pain, palpitations, and edema, Respiratory: Negative for shortness of breath, cough, wheezing, and pleuritic chest pain, Abdomen/GI: Negative for abdominal pain, nausea, vomiting, diarrhea, and constipation, Back: Negative for injury and pain, : Negative for injury, bleeding, discharge, and swelling, Skin: Negative for injury, rash, and discoloration, Psych: Negative for depression, anxiety, suicide ideation, homicidal ideation, and hallucinations, Allergy/Immunology: Negative for hives, rash, and allergies, Endocrine: Negative for neck swelling, polydipsia, polyuria, polyphagia, and marked weight changes, Hematologic/Lymphatic: Negative for swollen nodes, abnormal bleeding, and unusual bruising. 18:42 MS/extremity: Positive for decreased range of motion, pain, swelling, tenderness, of the lateral aspect of right hand, medial aspect of right hand and dorsum of right hand. Exam: 18:42 Hand exam: Exam is positive for decreased range of motion, injury, pain, swelling, nita tenderness, ROM: limited active range of motion, in the right hand, limited passive range of motion, Circulation is intact in all extremities. sensation intact. Compartment Syndrome exam of affected extremity: is normal. 18:42 Head/face: Noted is contusion, that is superficial, of the forehead. 18:42 ECG was reviewed by the Attending Physician. 18:49 Constitutional: This is a well developed, well nourished patient who is awake, alert, nita and in no acute distress. Eyes: Pupils equal round and reactive to light, extra-ocular motions intact. Lids and lashes normal. Conjunctiva and sclera are non-icteric and not injected. Cornea within normal limits. Periorbital areas with no swelling, redness, or edema. ENT: Nares patent. No nasal discharge, no septal abnormalities noted. Tympanic membranes are normal and external auditory canals are clear. Oropharynx with no redness, swelling, or masses, exudates, or evidence of obstruction, uvula midline. Mucous membranes moist. Neck: Trachea midline, no thyromegaly or masses palpated, and no cervical lymphadenopathy. Supple, full range of motion without nuchal rigidity, or vertebral point tenderness. No Meningismus. Chest/axilla: Normal chest wall appearance and motion. Nontender with no deformity. No lesions are appreciated. Cardiovascular: Regular rate and rhythm with a normal S1 and S2. No gallops, murmurs, or rubs. Normal PMI, no JVD. No pulse deficits. Respiratory: Lungs have equal breath sounds bilaterally, clear to auscultation and percussion. No rales, rhonchi or wheezes noted. No increased work of breathing, no retractions or nasal flaring. Abdomen/GI: Soft, non-tender, with normal bowel sounds. No distension or tympany. No guarding or rebound. No evidence of tenderness throughout. Back: No spinal tenderness. No costovertebral tenderness. Full range of motion. Skin: Warm, dry with normal turgor. Normal color with no rashes, no lesions, and no evidence of cellulitis. MS/ Extremity: Pulses equal, no cyanosis. Neurovascular intact. Full, normal range of motion. Psych: Awake, alert, with orientation to person, place and time. Behavior, mood, and affect are within normal limits. 18:49 Neuro: Orientation: is normal, appropriate for stated age, no acute changes, Mentation: appropriate for stated age, no acute changes, Memory: appropriate for stated age, no acute changes, Cerebellar function: is grossly normal, is grossly normal based on the patient's age, no acute changes, Motor: moves all fours, strength is normal, Sensation: is normal, no obvious gross deficits, appropriate no acute changes, Gait: not tested. seizure activity, is not displayed by the patient. Vital Signs: 18:36 BP 139 / 69; Pulse 107; Resp 16; Temp 98.4; Pulse Ox 100% on R/A; Weight 49.9 kg; hb Height 5 ft. 5 in. ; Pain 5/10; 19:42 Temp 100.4(O); me1 20:30 BP 118 / 55; Pulse 97; Resp 1; Pulse Ox 96% on R/A; me1 20:30 BP 103 / 51; Pulse 101; Resp 17; Pulse Ox 100% on R/A; me1 22:01 BP 106 / 54; Pulse 97; Resp 18; Pulse Ox 96% on R/A; me1 22:18 BP 103 / 52; Pulse 67; Resp 16; Pulse Ox 97% on R/A; me1 18:36 Body Mass Index 18.30 (49.90 kg, 165.1 cm) hb 18:36 Pain Scale: Adult hb NIH Stroke Scale Scores: 18:49 NIHSS Score: 0 nita Sean Coma Score: 18:44 Eye Response: spontaneous(4). Motor Response: obeys commands(6). Verbal Response: nita oriented(5). Total: 15. MDM: 18:28 Patient medically screened. nita 18:44 Differential diagnosis: Contusion of Hematoma on Concussion without LOC. closed nita fracture, contusion, abrasion, tendonitis, CVA, TIA, Dementia, metabolic disorder. Differential diagnosis: abrasion, closed head injury, contusion, fracture, laceration, multiple trauma, sprain, strain. Data reviewed: vital signs, nurses notes, lab test result(s), EKG, radiologic studies, CT scan, doppler. Consideration of Admission/Observation Patient was admitted/placed on observation. Escalation of care including admission/observation considered. I considered the following discharge prescriptions or medication management in the emergency department Medications were administered in the Emergency Department. See MAR. Test considered but Not performed: MRI: NO MRI BRAIN. Historians other than the Patient: Family Member: DAUGHTER. Care significantly affected by the following chronic conditions: Hypertension, MVP, SCOLIOSIS. 06/22 18:41 Order name: Basic Metabolic Panel; Complete Time: 20:34 [facility] 06/22 18:41 Order name: CBC with Diff; Complete Time: 20:34 [facility] 06/22 18:41 Order name: LFT's; Complete Time: 20:34 [facility] 06/22 18:41 Order name: Magnesium; Complete Time: 20:34 [facility] 06/22 18:41 Order name: NT PRO-BNP; Complete Time: 20:34 [facility] 06/22 18:41 Order name: PT-INR; Complete Time: 20:18 [facility] 06/22 18:41 Order name: Troponin HS; Complete Time: 20:34 [facility] 06/22 18:41 Order name: Lipase; Complete Time: 20:34 [facility] 06/22 18:41 Order name: Urinalysis w/ reflexes; Complete Time: 21:39 [facility] 06/22 19:43 Order name: Blood Culture Adult (2) [facility] 06/22 19:43 Order name: Lactate w/ 2H reflex if indic.; Complete Time: 20:34 [facility] 06/22 19:44 Order name: Urine Culture [facility] 06/22 19:59 Order name: Flu; Complete Time: 21:57 [facility] 06/22 19:59 Order name: SARS RAPID; Complete Time: 21:57 [facility] 06/22 19:59 Order name: Strep; Complete Time: 21:57 [facility] 06/22 21:05 Order name: CPK; Complete Time: 21:57 la1 06/22 18:41 Order name: XRAY Chest (1 view); Complete Time: 20:46 [facility] 06/22 18:41 Order name: CT Traumagram (Head C Spine CAP wo con); Complete Time: 20:18 [facility] 06/22 18:41 Order name: Hand Right 3 View XRAY; Complete Time: 20:46 [facility] 06/22 18:41 Order name: Wrist Right 3 View XRAY; Complete Time: 20:46 [facility] 06/22 18:41 Order name: US Carotid Artery Bilateral; Complete Time: 20:18 [facility] 06/22 18:41 Order name: EKG; Complete Time: 18:42 [facility] 06/22 18:41 Order name: Cardiac monitoring; Complete Time: 18:46 [facility] 06/22 18:41 Order name: EKG - Nurse/Tech; Complete Time: 18:46 [facility] 06/22 18:41 Order name: IV Saline Lock; Complete Time: 19:58 [facility] 06/22 18:41 Order name: Labs collected and sent; Complete Time: 19:58 [facility] 06/22 18:41 Order name: O2 Per Protocol; Complete Time: 18:46 [facility] 06/22 18:41 Order name: O2 Sat Monitoring; Complete Time: 18:46 [facility] 06/22 18:52 Order name: Splint - Volar Wrist Splint nita EC:42 Rate is 106 beats/min. Rhythm is regular. QRS [place] is Normal. CT interval is normal. nita QRS interval is normal. QT interval is normal. No Q waves. T waves are Normal. No ST changes noted. Clinical impression: Sinus tachycardia and No evidence of ischemia. Interpreted by me. Reviewed by me. Administered Medications: 19:43 CANCELLED (Duplicate Order): NS 0.9% IV 500 ml IV at bolus once nita 21:04 Drug: NS 0.9% IV 1000 ml Route: IV; Rate: 125 ml/hr; Site: right antecubital; me1 21:04 Drug: Acetaminophen PO 650 mg Route: PO; me1 21:40 Follow up: Response: No adverse reaction me1 21:04 Drug: NS 0.9% IV 1000 ml Route: IV; Rate: 1 bolus; Site: right antecubital; me1 21:30 Drug: foLIC Acid IVPB 1 mg Route: IVPB; Site: right antecubital; me1 21:40 Follow up: Response: No adverse reaction; IV Status: Completed infusion me1 21:30 Drug: Aspirin PO Chewable Tablet 162 mg Route: PO; me1 21:40 Follow up: Response: No adverse reaction me1 21:31 Drug: Piperacillin-Tazobactam IVPB 3.375 grams Route: IVPB; Infused Over: 60 mins; me1 Site: right antecubital; Disposition Summary: 06/22/23 19:33 Hospitalization Ordered Hospitalization Status: Inpatient Admission nita Provider: Jasson Thomas cha Location: Telemetry/MedSurg (Inpatient) nita Condition: Fair nita Problem: new nita Symptoms: have improved nita Bed/Room Type: Standard [facility] Room Assignment: 232(06/22/23 21:27) cg Diagnosis - Fall on same level, unspecified nita - Repeated falls nita - Weakness nita - Fever, unspecified nita - Cellulitis of other parts of limb - RIGHT HAND/WRIST nita Forms: - Medication Reconciliation Form nita - SBAR form nita - Leadership Thank You Letter nita NIH Stroke Scale - NIH Stroke Score Date: 06/22/2023 Time: 18:49 Total Score = 0 10. Dysarthria (speech clarity - read or repeat words) - 0(Normal) 11. Extinction and Inattention (visual/tactile/auditory/spatial/personal) - 0(No abnormality) 1a. Level of Consciousness (LOC) - 0(Alert) 1b. Level of Consciousness (LOC) (Month \T\ Age) - 0(Both) 1c. LOC Commands (Open \T\ Closes Eyes/Food Service Kitchen Supervisor) - 0(Both) 2. Best Gaze (Lateral Gaze Paresis) - 0(Normal) 3. Visual Field Loss - 0(No visual loss) 4. Facial Palsy - 0(Normal) 5a. Left Arm: Motor (10-second hold) - 0(No drift) 5b. Right Arm: Motor (10-second hold) - 0(No drift) 6a. Left Leg: Motor (5-second hold - always test supine) - 0(No drift) 6b. Right Leg: Motor (5-second hold - always test supine) - 0(No drift) 7. Limb Ataxia (finger/nose \T\ heel/kraft - test with eyes open) - 0(Absent) 8. Sensory Loss (pinprick arms/legs/face) - 0(Normal) 9. Best Language: Aphasia (description/naming/reading) - 0(No aphasia) Initials: [facility] Signatures: Dispatcher [employer] EDMikal Santana MD MD cha Attema, Lee, RECONCILIATION ACCOUNTANT-C RECONCILIATION ACCOUNTANT-Cla1 Annette Wesley, RN RN cg Coco Carolina RN RN Pretty Hodge RN RN me1 Corrections: (The following items were deleted from the chart) 19:43 18:41 NS 0.9% IV 500 ml IV at bolus once ordered. [facility] 21:27 19:33 [facility] cg
--- NOTE | 2023-06-22 19:51 | RAD REPORT ---
EXAM DESCRIPTION: CT - Head C Spine Cap Wo Con - 06/22/2023 7:19 pm CLINICAL HISTORY: Head and neck injury with chest and abdominal pain status post fall TECHNIQUE: Computed axial tomography of head, neck, chest, abdomen and pelvis obtained. IV and oral contrast not requested. Coronal and sagittal reconstruction performed. All CT scans are performed using dose optimization technique as appropriate and may include automated exposure control or mA/KV adjustment according to patient size. COMPARISON: December 2022 CT and C-spine FINDINGS: An intracranial bleed is not seen. Mild to moderate low-density within periventricular, deep and subcortical white matter probably ische dmitri changes secondary to small vessel disease The ventricles are normal in caliber. An extra-axial fluid collection is not noted. Fluid within the sinuses/mastoids is not seen. Rotary subluxation C1 on C2. Predental space normal. No fracture seen. Postsurgical changes mid and d istal cervical spine The evaluation of mediastinum, constantin, vessels, solid organs and bowel are limited secondary to the lac k of contrast administration. A mediastinal hematoma is not noted. A pleural effusion is not seen. A lung contusion is not present. The liver,spleen, pancreas, adrenals,kidneys and bladder do not demonstrate an acute traumatic injury Postsurgical changes lumbar spine. 4.7 centimeter hepatic cyst. IMPRESSION: No acute intracranial abnormality is seen. Rotary subluxation C1 on C2 No acute traumatic abnormality involving the chest, abdomen or pelvis
--- NOTE | 2023-06-22 20:05 | RAD REPORT ---
EXAM DESCRIPTION: USCarotid Artery Bilateral06/22/2023 7:36 pm CLINICAL HISTORY: Slurred speech COMPARISON: None FINDINGS: The velocity of the right internal carotid artery equals 96 cm/sec. The right ICA/CCA rati o 1.1 The velocity of the left internal carotid artery equals 114 cm/sec. The left ICA/CCA ratio 1.4 Mild plaque is present within the carotid arteries. The vertebral arteries demonstrate antegrade flow IMPRESSION: Mild plaque within the carotid arteries without evidence of a hemodynamically significan t stenosis NASCET criteria used. Mild 0-49% stenosis Moderate 50-69% stenosis Severe 70-99% stenosis
[2023-06-22 20:07] LABS: Absolute Lymphocytes (CBC) 0.5 K/uL (0.7-4.9); Hematocrit 37.9 % (36.0-45.0); MCV 82.4 fL (80-100); MPV 8.5 fL (7.6-11.3); Platelets 155 thou/uL (152-406)
[2023-06-22 20:11] LABS: Protime INR 1.39
[2023-06-22 20:25] LABS: Albumin 2.8 g/dL (3.4-5.0); Bilirubin Direct 0.8 mg/dL (0-0.2); Bilirubin Indirect, Calculated 0.8 mg/dL (0.2-0.8); Bilirubin Total 1.6 mg/dL (0.2-1.0); Potassium 3.2 mEq/L (3.5-5.1); Protein, Total 7.2 g/dL (6.4-8.2); Troponin High Sensitivity 6.7 pg/mL (<58.9)
--- NOTE | 2023-06-22 20:36 | RAD REPORT ---
EXAM DESCRIPTION: RAD - Wrist Right 3 View - 06/22/2023 8:16 pm CLINICAL HISTORY: Right wrist pain status post injury FINDINGS: No fracture or dislocation is seen. If the patient continues to have symptoms to suggest a n occult fracture then a followup plain film series in 7 days would be recommended.
--- NOTE | 2023-06-22 20:37 | RAD REPORT ---
EXAM DESCRIPTION: RAD - Hand Right 3 View - 06/22/2023 8:16 pm CLINICAL HISTORY: Right hand pain status post injury FINDINGS: No fracture or dislocation is seen.
--- NOTE | 2023-06-22 20:38 | RAD REPORT ---
EXAM DESCRIPTION: Shannan Single View06/22/2023 8:16 pm CLINICAL HISTORY: cough COMPARISON: 2020 FINDINGS: The lungs appear clear of acute infiltrate. The heart is normal size IMPRESSION: No acute abnormalities displayed
[2023-06-22] MEDS ORDERED: NA CHLORIDE 0.9% 2,000 ML ONE (20:57)
[2023-06-22] MEDS ORDERED: FOLIC ACID 5 MG/ML VIAL ONE (20:58)
[2023-06-22] MEDS ORDERED: NA CHLORIDE 0.9% 100 ML ONE (20:58)
[2023-06-22] MEDS ORDERED: ACETAMINOPHEN 325 MG TABLET ONE (20:59)
[2023-06-22] MEDS ORDERED: PIPERACIL/TAZO 3.375 GM VIAL IV ONE (20:59)
[2023-06-22] MEDS ORDERED: ASPIRIN 81 MG CHEWABLE TABLET ONE (21:25)
[2023-06-22 21:31] LABS: SARS-CoV-2 Antigen Rapid Res Negative (Negative)
--- NOTE | 2023-06-22 21:34 | P.HP ---
Certification for Inpatient Patient admitted to: Inpatient With expected LOS: >2 Midnights Patient will require the following post-hospital care: None Practitioner: I am a practitioner with admitting privileges, knowledge of patient current condition, hospital course, and medical plan of care. Services: Services provided to patient in accordance with Admission requirements found in Title 42 Section 412.3 of the Code of Federal Regulations Patient History Date of Service: 06/22/23 Reason for admission: Sepsis, cellulitis History of Present Illness: 77-year-old female with history of hypertension presents the emergency department chief complaint of multiple falls. She been feeling unwell over the past couple of days she reports that she had a fall 3 days ago noticed that her right arm was swelling since then. She was evaluated here in the emergency department her labs are significant for leukocytosis white blood cell count 16.9 with left shift sodium 130 potassium 3.2 BUN 20 glucose 126 T. bili 1.6 T. bili 0.[address] head/C-spine/chest abdomen pelvis negative for acute traumatic or infectious findings chest x-ray negative for acute findings x-rays of the hand and wrist negative for fractures carotid artery ultrasound also performed which was negative for significant stenosis. Surgical tear present including leukocytosis, tachycardia initial lactate 1.8 blood cultures obtained started on antibiotics in the ER with Beba. Will be admitted for sepsis, cellulitis right upper extremity. Allergies meperidine HCl [From Demerol] Allergy (Mild, Verified 10/27/20 15:43) Unknown morphine Allergy (Verified 10/27/20 15:43) Nausea/Vomiting Sulfa (Sulfonamide Antibiotics) Allergy (Verified 10/27/20 15:43) Shortness of breath Home Medications: Metoprolol Succinate [Toprol Xl] 25 mg PO DAILY 10/27/20 - Past Medical/Surgical History Diabetic: No -: Diverticulitis -: Hyperlipidemia -: HTN -: Lymphedema -: Neck & face lift -: Left knee sx -: Hysterectomy -: Bilateral carpal tunnel sx -: Left ulnar nerve sx -: Coccyx removal -: Back sx Psychosocial/ Personal History: Lives at home, alone. - Social History Smoking Status: Never smoker Alcohol use: No CD- Drugs: No Caffeine use: Yes Place of Residence: Home Review of Systems General: Fever, Chills, Malaise Musculoskeletal: Arm Pain (, Swelling) Physical Examination - Physical Exam General: Alert, In no apparent distress, Oriented x3 HEENT: Atraumatic, PERRLA, Mucous membr. moist/pink, EOMI, Sclerae nonicteric Neck: Supple, 2+ carotid pulse no bruit, No LAD, Without JVD or thyroid abnormality Respiratory: Clear to auscultation bilaterally, Normal air movement Cardiovascular: Regular rate/rhythm, Normal S1 S2 Capillary refill: <2 Seconds Gastrointestinal: Normal bowel sounds, No tenderness Musculoskeletal: No tenderness Integumentary: Tenderness/swelling, Erythema, Warmth Neurological: Normal speech, Normal strength at 5/5 x4 extr, Normal tone, Normal affect Lymphatics: No axilla or inguinal lymphadenopathy - Studies Laboratory Data (last 24 hrs) 06/22/23 06/22/23 06/22/23 19:55 19:55 19:55 WBC 16.90 H Hgb 13.2 Hct 37.9 Plt Count 155 PT 15.3 H INR 1.39 Sodium 130 L Potassium 3.2 L BUN 20 H Creatinine 0.62 Glucose 126 H Magnesium 2.0 Total Bilirubin 1.6 H AST 28 ALT 22 Alkaline Phosphatase 112 Lipase 22 Microbiology Data (last 24 hrs): 06/22/23 21:07 Throat Group A Streptococcus Rapid Screen - Final Assessment and Plan - Plan Assessment: Sepsis secondary to right upper extremity cellulitis Multiple falls Hypertension Plan: Sepsis secondary to right upper extremity cellulitis SIRS criteria present including leukocytosis, tachycardia. Lactate less than 2. Blood cultures obtained before antibiotics, antibiotics given. Follow blood cultures. Multiple falls Fall precautions, PT consult. Hypertension Hold antihypertensive agents in the setting of sepsis. DVT PPX: Lovenox Code status: Full Discharge Plan: Home Plan to discharge in: 48 Hours - Advance Directives Does patient have a Living Will: No Does patient have a Durable POA for Healthcare: No - Code Status/Comfort Care Code Status Assessed: Yes (Full code) Critical Care: No Time Spent Managing Pts Care (In Minutes): 55
[2023-06-22 21:37] LABS: Urine Bacteria None Seen /HPF (<20); Urine Bilirubin NEGATIVE (Negative); Urine Blood 1+ (Negative); Urine Clarity Turbid (Clear); Urine Color Yellow (Yellow); Urine Glucose 1+ (Negative); Urine Mucus Slight /HPF (None Seen); Urine Protein 1+ (Negative); Urine RBC <5 /HPF (None Seen); Urine Urobilinogen 3+ (Normal)
[2023-06-22] MEDS ORDERED: ACETAMINOPHEN 500 MG TAB PO PRN (22:10)
[2023-06-22] MEDS: NA CHLORIDE 0.9% 1,000 ML IV SCH (22:10)
[2023-06-22] MEDS ORDERED: ONDANSETRON 4 MG/2 ML VIAL IV PRN (22:10)
[2023-06-22] MEDS ORDERED: POTASSIUM 25 MEQ EFFERV TAB PO ONE (22:49)
[2023-06-22] MEDS ORDERED: VANCOMYCIN 1 GM in NA CHLORIDE 0.9% 250 ML IVPB SCH (23:00)
[2023-06-22] MEDS ORDERED: VANCOMYCIN 0.75 GM in NA CHLORIDE 0.9% 250 ML IVPB SCH (23:00)
[2023-06-22] MEDS: HYDROCODONE/APAP 5/325 MG TAB PO PRN (23:24)
[2023-06-22] MEDS ORDERED: NA CHLORIDE 0.9% 250 ML ONE (23:31)
[2023-06-22] MEDS ORDERED: VANCOMYCIN 1 GM/VIAL ONE (23:31)
[2023-06-23 00:18] VITALS: BMI 17.4
[2023-06-23] MEDS: HYDROCODONE/APAP 5/325 MG TAB PO PRN (05:38)
[2023-06-23] MEDS: NA CHLORIDE 0.9% 1,000 ML IV SCH (05:38)
[2023-06-23 07:30] LABS: Absolute Lymphocytes (CBC) 0.3 K/uL (0.7-4.9); Hematocrit 33.5 % (36.0-45.0); Lymphocytes % 2.2 % (15.3-44.8); MCV 83.4 fL (80-100); MPV 8.5 fL (7.6-11.3); Platelets 133 thou/uL (152-406); RBC Red Blood Cell Count 4.02 M/uL (3.86-4.86)
[2023-06-23 08:01] LABS: Potassium 3.4 mEq/L (3.5-5.1); Thyroid Stimulating Hormone 0.935 uIU/mL (0.358-3.740)
[2023-06-23] MEDS: ENOXAPARIN 40 MG/0.4 ML SQ SCH (08:23)
[2023-06-23] MEDS: CEFEPIME 2 GM in NA CHLORIDE 0.9% 100 ML IV SCH ×2 (08:30→20:32)
[2023-06-23] MEDS ORDERED: CEFEPIME 1 GM in NA CHLORIDE 0.9% 100 ML IV SCH (09:00)
[2023-06-23] MEDS: VANCOMYCIN 0.75 GM in NA CHLORIDE 0.9% 150 ML IVPB SCH ×2 (09:39→21:47)
--- NOTE | 2023-06-23 10:15 | P.PN ---
Subjective Date of Service: 06/23/23 Chief Complaint: Sepsis, cellulitis Subjective: Improving (Patient is improving still complaining of swelling of the right hand) Review of Systems Unremarkable Physical Examination - Vital Signs Temperature: 99.0 F Blood Pressure: 107/51 Pulse: 93 Respirations: 16 Pulse Ox (%): 94 - Physical Exam General: Alert, In no apparent distress, Oriented x3 Cardiovascular: No edema, Regular rate/rhythm Musculoskeletal: Other (Right arm is swollen up to the elbow) - Studies Laboratory Data (last 24 hrs) 06/22/23 06/22/23 06/22/23 19:55 19:55 19:55 WBC 16.90 H Hgb 13.2 Hct 37.9 Plt Count 155 PT 15.3 H INR 1.39 Sodium 130 L Potassium 3.2 L BUN 20 H Creatinine 0.62 Glucose 126 H Magnesium 2.0 Total Bilirubin 1.6 H AST 28 ALT 22 Alkaline Phosphatase 112 Lipase 22 Microbiology Data (last 24 hrs): 06/22/23 21:07 Nasopharnyx Influenza Type A Antigen Screen - Final 06/22/23 21:07 Nasopharnyx Influenza Type B Antigen Screen - Final 06/22/23 21:07 Throat Group A Streptococcus Rapid Screen - Final Assessment And Plan - Current Problems (Diagnosis) (1) Cellulitis of arm, right Current Visit: Yes Status: Acute Plan: Patient is 77 years of age admitted with cellulitis of the right arm count is elevated has hypokalemia hyponatremia running some fever continue with present medication advised to elevate her right hand Plan to discharge in: 48 Hours
[2023-06-23 11:02] LABS: Blood Morphology Comment NOT SEEN (NOT SEEN); Platelet Estimate ADEQ; White Blood Cell Scan OK (OK)
[2023-06-23] MEDS ORDERED: POTASSIUM 25 MEQ EFFERV TAB PO ONE (19:42)
[2023-06-24 04:01] LABS: Absolute Lymphocytes (CBC) 0.9 K/uL (0.7-4.9); Hematocrit 31.9 % (36.0-45.0); Lymphocytes % 5.9 % (15.3-44.8); MCV 82.6 fL (80-100); Platelets 165 thou/uL (152-406); RBC Red Blood Cell Count 3.86 M/uL (3.86-4.86)
[2023-06-24 04:09] LABS: Potassium 3.9 mEq/L (3.5-5.1)
[2023-06-24] MEDS: ENOXAPARIN 40 MG/0.4 ML SQ SCH (08:29)
[2023-06-24] MEDS: CEFEPIME 2 GM in NA CHLORIDE 0.9% 100 ML IV SCH ×2 (08:29→19:49)
[2023-06-24] MEDS: VANCOMYCIN 0.75 GM in NA CHLORIDE 0.9% 150 ML IVPB SCH (09:00)
[2023-06-24] MEDS ORDERED: POTASSIUM 25 MEQ EFFERV TAB PO ONE (09:00)
[2023-06-24] MEDS: VANCOMYCIN 1 GM in NA CHLORIDE 0.9% 250 ML IVPB SCH ×2 (10:46→20:59)
--- NOTE | 2023-06-24 13:42 | P.PN ---
Subjective Date of Service: 06/24/23 Chief Complaint: Sepsis, cellulitis Subjective: No new changes, Improving (still has swollen arm and hyperemia.) Physical Examination - Vital Signs Temperature: 97.8 F Blood Pressure: 118/64 Pulse: 81 Respirations: 16 Pulse Ox (%): 98 - Physical Exam General: Alert, Oriented x3 HEENT: Atraumatic, Normocephalic Respiratory: Normal air movement Cardiovascular: Regular rate/rhythm, Normal S1 S2 Gastrointestinal: Soft and benign Musculoskeletal: Swelling (of the right upper extremity.), Erythema, Tenderness Neurological: Normal speech - Studies Microbiology Data (last 24 hrs): 06/22/23 21:07 Throat Group A Streptococcus Rapid Screen - Final 06/22/23 21:07 Throat Culture & Sensitivity - Final NORMAL UPPER RESPIRATORY MACK GROWN. Assessment And Plan - Plan Cellulitis of the right upper extremity: Patient has significant improvement in feeling however she still has hyperemia and swelling. She still has significant leukocytosis. We will follow trend of WBC closely. Continue vancomycin and cefepime pending clinical resolution of cellulitis episode. Hyponatremia: Sodium slightly much improved at 135 today. We will continue to replete and follow levels. Hypokalemia: Potassium is better today at 3.9. Follow symptomatology closely. Disposition: we will follow clinical resolution of cellulitis episode.
--- NOTE | 2023-06-24 19:07 | EKG ---
Test Date: 2023-06-22 Test Time: 18:32:54 Pharmacy Technician: Diann REEVES MEASUREMENT RESULTS: Intervals: Rate: 106 SC: 136 QRSD: 74 QT: 342 QTc: 454 [place]: P: 76 SC: 136 QRS: -13 T: 54 INTERPRETIVE STATEMENTS: Sinus tachycardia Nonspecific ST and T wave abnormality Abnormal ECG Compared to ECG 10/27/2020 16:08:30 ST (T wave) deviation now present Sinus rhythm no longer present Myocardial infarct finding no longer present Electronically Signed On 06-24-23 19:05:14 CDT by Devan Johnson
[2023-06-25 03:54] LABS: Absolute Lymphocytes (CBC) 1.1 K/uL (0.7-4.9); Hematocrit 33.5 % (36.0-45.0); Lymphocytes % 10.4 % (15.3-44.8); MCV 83.2 fL (80-100); MPV 9.2 fL (7.6-11.3); Platelets 206 thou/uL (152-406); RBC Red Blood Cell Count 4.03 M/uL (3.86-4.86)
[2023-06-25 04:01] LABS: Potassium 3.4 mEq/L (3.5-5.1)
[2023-06-25] MEDS: ENOXAPARIN 40 MG/0.4 ML SQ SCH (08:13)
[2023-06-25] MEDS: CEFEPIME 2 GM in NA CHLORIDE 0.9% 100 ML IV SCH (08:14)
[2023-06-25] MEDS: VANCOMYCIN 1 GM in NA CHLORIDE 0.9% 250 ML IVPB SCH (08:47)
[2023-06-25] MEDS ORDERED: POTASSIUM 25 MEQ EFFERV TAB PO ONE (09:00)
[2023-06-25 09:07] VITALS: BP 140/59; TEMP 98
[2023-06-25 09:12] VITALS: O2SAT 100
--- NOTE | 2023-06-25 13:57 | P.DS ---
Admission Date: 06/22/23 Discharge Date: 06/25/23 Disposition: ROUTINE DISCHARGE Discharge Condition: FAIR Reason for Admission: Sepsis, cellulitis Brief History of Present Illness: 77-year-old female with history of hypertension presents the emergency department chief complaint of multiple falls. She been feeling unwell over the past couple of days she reports that she had a fall 3 days ago noticed that her right arm was swelling since then. She was evaluated here in the emergency department her labs are significant for leukocytosis white blood cell count 16.9 with left shift sodium 130 potassium 3.2 BUN 20 glucose 126 T. bili 1.6 T. bili 0.[address] head/C-spine/chest abdomen pelvis negative for acute traumatic or infectious findings chest x-ray negative for acute findings x-rays of the hand and wrist negative for fractures carotid artery ultrasound also performed which was negative for significant stenosis. Surgical tear present including leukocytosis, tachycardia initial lactate 1.8 blood cultures obtained started on antibiotics in the ER with Zosyn. Will be admitted for sepsis, cellulitis right upper extremity Vital Signs/Physical Exam: Temp Pulse Resp BP Pulse Ox 98.0 F 91 H 18 140/59 L 100 06/25/23 08:00 06/25/23 08:00 06/25/23 08:00 06/25/23 08:00 06/25/23 08:00 Laboratory Data at Discharge: WBC 10.60 thou/uL (4.3-10.9) 06/25/23 02:26 Hgb 11.7 g/dL (12.0-15.0) L 06/25/23 02:26 Hct 33.5 % (36.0-45.0) L 06/25/23 02:26 Plt Count 206 thou/uL (152-406) 06/25/23 02:26 PT 15.3 SECONDS (9.5-12.5) H 06/22/23 19:55 INR 1.39 06/22/23 19:55 Sodium 140 mEq/L (136-145) D 06/25/23 02:26 Potassium 3.4 mEq/L (3.5-5.1) L 06/25/23 02:26 BUN 11 mg/dL (7-18) 06/25/23 02:26 Creatinine 0.32 mg/dL (0.55-1.02) L 06/25/23 02:26 Glucose 87 mg/dL (74-106) 06/25/23 02:26 Magnesium 2.0 mg/dL (1.6-2.4) 06/22/23 19:55 Total Bilirubin 1.6 mg/dL (0.2-1.0) H 06/22/23 19:55 AST 28 U/L (15-37) 06/22/23 19:55 ALT 22 U/L (13-56) 06/22/23 19:55 Alkaline Phosphatase 112 U/L (45-117) 06/22/23 19:55 Lipase 22 U/L (13-75) 06/22/23 19:55 Home Medications: Metoprolol Succinate [Toprol Xl*] 25 mg PO BID 10/27/20 Aspirin 162 mg PO DAILY 06/23/23 Gabapentin 300 mg PO TID 06/23/23 Galantamine HBr [Galantamine ER] 4 mg PO BID 06/23/23 Amox/Clavulanate [Augmentin 875-125 Tab] 1 each PO BID #14 tab 06/25/23 Doxycycline Hyclate 100 mg PO BID #10 cap 06/25/23 Ensure Enlive 237 ml PO BID #30 can 06/25/23 New Medications: Amox/Clavulanate [Augmentin 875-125 Tab] 1 each PO BID #14 tab Doxycycline Hyclate 100 mg PO BID #10 cap Ensure Enlive 237 ml PO BID #30 can Followup: Lv Jj MD [Primary Care Provider] -
[2023-06-25] MEDS ORDERED: ENSURE ENLIVE 237 ML CAN PO SCH (21:00)
== END 2023-06-25 11:46 | disposition home health service (06) | DRG 871 ==
LOC: ER 18:17 → ERHOLD 21:22 → 2ND 21:56
PROVIDERS: ADMIT Internal Medicine Sleep Medicine; ATTEND Internal Medicine
DX: A41.9 Sepsis, unspecified organism (principal); G92.8 Other toxic encephalopathy; L03.113 Cellulitis of right upper limb; E87.1 Hypo-osmolality and hyponatremia; E87.6 Hypokalemia; I10 Essential (primary) hypertension; R29.700 NIHSS score 0; R29.6 Repeated falls; Z60.2 Problems related to living alone; Z88.1 Allergy status to other antibiotic agents; Z88.5 Allergy status to narcotic agent; Z91.81 History of falling; Z90.49 Acquired absence of other specified parts of digestive tract; Z90.710 Acquired absence of both cervix and uterus; Z79.899 Other long term (current) drug therapy; W18.30XA Fall on same level, unspecified, initial encounter; Y93.01 Activity, walking, marching and hiking; Y92.9 Unspecified place or not applicable; Y99.9 Unspecified external cause status
CPT/HCPCS: 36415; 70450; 71045; 71250; 72125; 80048; 80076; 80202; 81001; 82550; 83605; 83690; 83735; 83880; 84439; 84443; 84484; 85025; 85610; 87040; 87070; 87081; 87086; 87088; 87804; 87811; 93005; 93880; 96374; 96375; 97116; 97161; 97530; 99285; J0692; J1650; J2543; J7030; J7050

== ENCOUNTER 2023-08-24 09:14 | Emergency (ER) | payer OTHER, MEDICARE ==
--- OUTSIDE RECORDS SUMMARY | 2023-08-24 09:18 | XMS REPORT | Continuity of Care Document ---
:1945 Author Organization [facility] t Address [address] [place] [address] Care Team Providers Name Role Phone Provider MD, Not In System Primary Care Physician Unavailyo Vela MD, Shekhar Zarate Attending Clinician Johanny Barbour Attending Clinician [phone] Violetta Barahona Attending Clinician Unavailable Nicolle [...] Active M ethodi of right of right 1-12 st shoulder shoulder 00:00: Hospit a 00 l Acute pain Acute pain Disease Active M ethodi of right of right 1-12 st shoulder shoulder 00:00: Hospit a 00 l Fall (on) Fall (on) Disease Active Met hodi (from) (from) -12 st other other 00:00: Hospita stairs and stairs and 00 l steps, steps, initial initial encounter encounter 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 1-12 st t of right t of right [...] right 00 l rotator rotator cuff cuff Traumatic Traumatic Disease Active Met hodi complete [...] disease 00:00: Hospita involving involving 00 l [place] coronary coronary artery artery Chest pain Chest pain Disease Active M ethodi 4-13 st 00:00: Hospita 00 l 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 00:00: Hospita involving involving 00 l [place] 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 [...] Can marilynn e Methodi teroids ty to 7-[address] (Glucoco adverse 00:00: pills in Hospi ta rticoids reaction 00 small l ) s to amounts drug Meperidi Propensi Active Shortness Of Methodi ne ty to Breath 7-28 st adverse 00:00: Hospita reaction 00 l s to drug Morphine Propensi Active Palpitations Methodi ty to 05-03 st adverse 00:00: Hospita reaction 00 l s to drug Quinolon Propensi Active Shortness Of Methodi es ty to Breath 05-03 adverse 00:00: Hospita reaction 00 l s to drug Sulfamet Propensi Active Rash Method i hoxazole ty to 05-03 adverse 00:00: Hospita reaction 00 l s to drug Family History Family Member Diagnosis Comments Start Date Stop Date Source Natural mother COPD [facility] Natural father Aortic aneurysm [facility] Social History Social Habit Start Date Stop Date Quantity Comments Source Gender identity [facility] History of tobacco [facility]arette [facility] Alcohol intake 2022-07-06 2022-07-06 Ex-drinker [facility] 00:[facility]:00 00:00:00 (finding) Hospital History of Social 2022-07-06 2022-07-[address] function 00:00:00 00:00:00 Hospital Tobacco use and 2020-08-13 2020-08-13 Smokeless [facility] exposure 00:00:00 00:00:00 tobacco non-user Hospital Cigarettes smoked 2020-08-13 2020-08-[address] current (pack per 00:00:00 00:00:00 Hospita l day) - Reported Cigarette 2020-08-13 2020-08-13 [facility] pack-years 00:00:00 00:00:00 Hospital Alcohol Comment 2020-08-13 2020-08-13 YEARLY A 1/[address] 00:00:00 00:00:00 GLASS OF WINE AT [facility] Sex Assigned At [birth year] [facility] 00:00[facility] 00[facility]00 Hospital Smoking Status Start Date Stop Date Source Ex-smoker 2020-08-13 00:00:00 2020-08-13 00:00:00 [facility] Medications Ordered Filled Start Stop Current Ordering Indication Dosage Frequency Signature Comments Components Source Medication Medication Date Date Medication? Clinician (SIG) Name Name meloxicam 2022- No 7.5mg QD Take 1 Meth nino (Mobic) 7.5 10-[address] mg tablet 00:00: 05:59 (7.5 mg Hosp mark 00 :00 total) by l mouth daily for 30 days. meloxicam 3-0 3- No 7.5mg QD Take 1 Meth nino (Mobic) 7.5 10-17-[address] mg tablet 00:00: 05:59 (7.5 mg Hosp mark 00 :00 total) by l mouth daily for 30 days. meloxicam 2022-0 2023- No 7.5mg QD Take 1 Meth nino (Mobic) 7.5 10-17-[address] mg tablet 00:00: 05:59 (7.5 mg Hosp mark 00 :00 total) by l mouth daily for 30 days. meloxicam 2022-0 2022- No 7.5mg QD Take 1 Meth nino (Mobic) 7.5 10-[address] mg tablet 00:00: 05:59 (7.5 mg Hosp mark 00 :00 total) by l mouth daily for 30 days. meloxicam 2022-0 2022- No 7.5mg QD Take 1 Meth nino (Mobic) 7.5 10-[address] mg tablet 00:00: 05:59 (7.5 mg Hosp mark 00 :00 total) by l mouth daily for 30 days. meloxicam 2022-0 2022- No 7.5mg QD Take 1 Meth nino (Mobic) 7.5 10-[address] mg tablet 00:00: 05:59 (7.5 mg Hosp mark 00 :00 total) by l mouth daily for 30 days. HYDROcodone 2021- No [id number] 1{tbl} Q6H Take 1 Methodi -acetaminop 9-27 10-[address] hen ([place]) 00:00: 04:59 mouth Hosp mark 10-325 mg 00 :00 every 6 l per tablet (six) hours as needed for moderate pain for up to 7 days .acute pain. Max Daily Amount: 4 tablets HYDROcodone 2021- No [id number] 1{tbl} Q6H Take 1 Methodi -acetaminop 9-27 10-[address] hen ([place]) 00:00: 04:59 mouth Hosp mark 10-325 mg 00 :00 every 6 l per tablet (six) hours as needed for moderate pain for up to 7 days .acute pain. Max Daily Amount: 4 tablets HYDROcodone 2021-0 2021- No [id number] 1{tbl} Q6H Take 1 Methodi -acetaminop 9-27 10-[address] hen (T[place]oval) 00:00: 04:59 mouth Hosp mark 10-325 mg 00 :00 every 6 l per tablet (six) hours as needed for moderate pain for up to 7 days .acute pain. Max Daily Amount: 4 tablets HYDROcodone 2021-0 2021- [place] [id number] 1{tbl} Q6H Take 1 Methodi -acetaminop 9-27 10-[address] hen (T[place]oval) 00:00: 04:59 mouth Hosp mark 10-325 mg 00 :00 every 6 l per tablet (six) hours as needed for moderate pain for up to 7 days .acute pain. Max Daily Amount: 4 tablets HYDROcodone 2021-0 2021- No [id number] 1{tbl} Q6H Take 1 Methodi -acetaminop 9-27 10-[address] hen (T[place]oval) 00:00: 04:59 mouth Hosp mark 10-325 mg 00 :00 every 6 l per tablet (six) hours as needed for moderate pain for up to 7 days .acute pain. Max Daily Amount: 4 tablets HYDROcodone 2021-0 2021- [place] [id number] 1{tbl} Q6H Take 1 Methodi -acetaminop 9-27 10-[address] hen (Trooval) 00:00: 04:59 mouth Hosp mark 10-325 mg 00 :00 every 6 l per tablet (six) hours as needed for moderate pain for up to 7 days .acute pain. Max Daily Amount: 4 tablets simvastatin 2021-0 Yes 40mg QD Take 40 mg Methodi (ZOCOR) 40 2-[address] mg tablet 00:00: daily. Hospit a 00 l simvastatin 2021-0 Yes 40mg QD Take 40 mg Methodi (ZOCOR) 40 2-[address] mg tablet 00:00: daily. Hospit a 00 l simvastatin 2021-0 Yes 40mg QD Take 40 mg Methodi (ZOCOR) 40 2-[address] mg tablet 00:00: daily. Hospit a 00 l simvastatin 2021-0 Yes 40mg QD Take 40 mg Methodi (ZOCOR) 40 2-[address] mg tablet 00:00: daily. Hospit a l simvastatin 2020-0 Yes 40mg QD Take 40 mg Methodi (ZOCOR) 40 2-[address] mg tablet 00:00: daily. Hospit a l simvastatin 2020-0 Yes 40mg QD Take 40 mg Methodi (ZOCOR) 40 2-[address] mg tablet 00:00: daily. Hospit a l simvastatin 2020-0 Yes 40mg QD Take 40 mg Methodi (ZOCOR) 40 2-[address] mg tablet 00:00: daily. Hospit a l metoprolol 2015-0 Yes 25mg QD Take [...] MG 00 evening. l tablet Immunizations Ordered Filled Immunization Date Status Comments [facility] e Immunization Name Name XGraphID-19 2021-10-02 Completed [facility] VACCINATION 00:00:00 [facility] [place] COVID-19 2021-10-02 Completed [facility] VACCINATION 00:00:00 [facility] [place] 2021-10-02 Completed [facility] VACCINATION 00:00:00 [facility] EDUARD [place] 2021-10-02 Completed [facility] MRNA VACCINATION 00:00:00 [facility] JANNETHID[place]ina 2021-10-02 Completed [facility] VACCINATION 00:00:00 [facility] 2021-01-09 Completed [facility] t MRNA VACCINATION 00:00:00 [facility] 2021-01-09 Completed [facility] t MRNA VACCINATION 00:00:00 [facility] 2021-01-09 Completed [facility] MRNA VACCINATION 00:00:00 [facility] 2021-01-09 Completed [facility] t MRNA VACCINATION 00:00:00 [facility] 2021-01-09 Completed [facility] t MRNA VACCINATION 00:00:00 [place] [address] 2020-12-12 Completed [facility] t MRNA VACCINATION 00:00:00 [facility] 2020-12-12 Completed [facility] t MRNA VACCINATION 00:00:00 [facility] 2020-12-12 Completed [facility] t MRNA VACCINATION 00:00:00 [facility] 2020-12-12 Completed Method[facility] t MRNA VACCINATION 00:00:00 [place] [address] 2020-12-12 Completed Method[facility] t MRNA VACCINATION 00:00:00 [place] [address] Unknown Completed Method[facility] t MRNA VACCINATION [place] [address] Unknown Completed [facility] t MRNA VACCINATION [place] [address] Unknown Completed [facility] MRNA VACCINATION [place] [address] Unknown Completed Method[facility] t MRNA VACCINATION [place] [address] Unknown Completed [facility] MRNA VACCINATION [place] [address] Unknown Completed [facility] VACCINATION [facility] Vital Signs Vital Name Observation Time Observation Value Comments Source Oxygen saturation in 2022-07-05 17:26:00 96 [facility]ter[facility] by Pulse oximetry Systolic blood 2022-07-05 17:26:00 139 mm[Hg] Method ist [facility] pressure Diastolic blood 2022-07-05 17:26:00 65 mm[Hg] [facility] pressure Heart rate 2022-07-05 17:26:00 75 /min Method[facility] Body temperature 2022-07-05 17:26:00 36.11 Na [facility] Respiratory rate 2022-07-05 17:26:00 17 /min [facility] Body height 2022-07-05 11:43:[address] [facility] Body weight 2022-07-05 11:43:[address] [facility] BMI 2022-07-05 11:43:00 19.21 kg/m2 [facility] Procedures Procedure Date / Time Performing Clinician Source Performed XR SHOULDER 2+ VW RIGHT 2022-10-17 [facility]38[facility] 2022-10-17 21:10:00 [facility] ASPIR&/INJ MAJOR JT/BURSA W/O US RI AN ELECTIVE 2022-07-05 12:23:[address] [facility] ENDOTRACHEAL AIRWAY Nicholas ARTHROSCOPY, SHOULDER 2022-07-05 12:13[facility]00 [facility] NERVE [facility], 2022-07-05 12:07:02 Yuko Cardenas [facility] INTERSCALENE W IMG GUID XR SHOULDER 2+ VW RIGHT 2022-05-23 15:13:00 [facility] UPPER EXTREMITY 2021-12-18 17:37:12 [facility] EXTERNAL STUDY Plan of Care Planned Activity Planned Date Details Comments Source Future Scheduled 2023-08-07 65+ PNEUMOCOCCAL [facility] Test 17:04:08 VACCINE (1 - PCV) [code = 65+ PNEUMOCOCCAL VACCINE (1 - PCV)] Future Scheduled 2023-08-07 Hepatitis C screening [facility] Test 17:04:08 (procedure) [code = 590848005] Future Scheduled 2023-08-07 SHINGLES VACCINES (1 [facility] Test 17:04:08 of 2) [code = SHINGLES VACCINES (1 of 2)] Future Scheduled 2023-08-07 COVID-19 VACCINE (5 - [facility] Test 17:04:08 season) [code = COVID-19 VACCINE (5 - season)] Future Scheduled 2023-08-07 INFLUENZA VACCINE (#1) [facility] 17:04:08 [code = INFLUENZA VACCINE (#1)] Future Scheduled 2023-06-08 Screening for [facility] Test 20:44:54 malignant neoplasm of colon (procedure) [code = 816639350] Future Scheduled 2023-06-08 Screening for [facility] Test 20:44:54 malignant neoplasm of colon (procedure) [code = 765740551] Future Scheduled 2023-06-08 Screening for [facility] Test 20:44:54 malignant neoplasm of colon (procedure) [code = 543140057] Future Scheduled 2023-06-08 65+ PNEUMOCOCCAL [facility] Test 20:44:54 VACCINE (1 - PCV) [code = 65+ PNEUMOCOCCAL VACCINE (1 - PCV)] Future Scheduled 2023-06-08 Hepatitis C screening [facility] Test 20:44:54 (procedure) [code = 446446921] Future Scheduled 2023-06-08 BREAST CANCER [facility] Test 20:44:54 SCREENING [code = BREAST CANCER SCREENING] Future Scheduled 2023-06-08 Screening for [facility] Test 20:44:54 malignant neoplasm of colon (procedure) [code = 347431582] Future Scheduled 2023-06-08 Screening for [facility] Test 20:44:54 malignant neoplasm of colon (procedure) [code = 607094530] Future Scheduled 2023-06-08 SHINGLES VACCINES (1 [facility] Test 20:44:54 of 2) [code = SHINGLES VACCINES (1 of 2)] Future Scheduled 2023-06-08 COVID-19 VACCINE (5 - [facility] Test 20:44:54 Moderna series) [code = COVID-19 VACCINE (5 - Moderna series)] Future Scheduled 2023-06-08 INFLUENZA VACCINE (#1) [facility] Test 20:44:54 [code = INFLUENZA VACCINE (#1)] Future Scheduled 2023-06-08 Screening for [facility] Test 20:44:54 malignant neoplasm of colon (procedure) [code = 645101256] Future Scheduled 2023-06-08 Screening for [facility] Test 20:44:54 malignant neoplasm of colon (procedure) [code = 584789436] Future Scheduled 2023-06-08 Screening for [facility] Test 20:44:54 malignant neoplasm of colon (procedure) [code = 512059429] Future Scheduled 2023-06-08 65+ PNEUMOCOCCAL [facility] Test 20:44:54 VACCINE (1 - PCV) [code = 65+ PNEUMOCOCCAL VACCINE (1 - PCV)] Future Scheduled 2023-06-08 Hepatitis C screening [facility] Test 20:44:54 (procedure) [code = 701893461] Future Scheduled 2023-06-08 BREAST CANCER [facility] Test 20:44:54 SCREENING [code = BREAST CANCER SCREENING] Future Scheduled 2023-06-08 Screening for [facility] Test 20:44:54 malignant neoplasm of colon (procedure) [code = 732264172] Future Scheduled 2023-06-08 Screening for [facility] Test 20:44:54 malignant neoplasm of colon (procedure) [code = 212412338] Future Scheduled 2023-06-08 SHINGLES VACCINES (1 [facility] Test 20:44:54 of 2) [code = SHINGLES VACCINES (1 of 2)] Future Scheduled 2023-06-08 COVID-19 VACCINE (5 - [facility] Test 20:44:54 Moderna series) [code = COVID-19 VACCINE (5 - Moderna series)] Future Scheduled 2023-06-08 INFLUENZA VACCINE (#1) [facility] Test 20:44:54 [code = INFLUENZA VACCINE (#1)] Future Scheduled 2023-06-08 Screening for [facility] Test 20:44:54 malignant neoplasm of colon (procedure) [code = 318205980] Future Scheduled 2023-06-08 Screening for [facility] Test 20:44:54 malignant neoplasm of colon (procedure) [code = 234655008] Future Scheduled 2023-06-08 Screening for [facility] Test 20:44:54 malignant neoplasm of colon (procedure) [code = 314027964] Future Scheduled 2023-06-08 65+ PNEUMOCOCCAL [facility] Test 20:44:54 VACCINE (1 - PCV) [code = 65+ PNEUMOCOCCAL VACCINE (1 - PCV)] Future Scheduled 2023-06-08 Hepatitis C screening [facility] Test 20:44:54 (procedure) [code = 916478100] Future Scheduled 2023-06-08 BREAST CANCER [facility] Test 20:44:54 SCREENING [code = BREAST CANCER SCREENING] Future Scheduled 2023-06-08 [facility] 20:44:54 malignant neoplasm of colon (procedure) [code = 673212673] Future Scheduled 2023-06-08 [facility] Test 20:44:54 malignant neoplasm of colon (procedure) [code = 323269825] Future Scheduled 2023-06-08 SHINGLES VACCINES (1 [facility] Test 20:44:54 of 2) [code = SHINGLES VACCINES (1 of 2)] Future Scheduled 2023-06-08 COVID-19 VACCINE (5 - [facility] Test 20:44:54 Moderna series) [code = COVID-19 VACCINE (5 - Moderna series)] Future Scheduled 2023-06-08 INFLUENZA VACCINE (#1) [facility] Test 20:44:54 [code = INFLUENZA VACCINE (#1)] Future Scheduled 2023-01-16 65+ [facility]CCAL [facility] 17:56:27 VACCINE (1 - PCV) [code = 65+ PNEUMOCOCCAL VACCINE (1 - PCV)] Future Scheduled 2023-01-16 Hepatitis C screening [facility] Test 17:56:27 (procedure) [code = 117108288] Future Scheduled 2023-01-16 BREAST CANCER [facility] Test 17:56:27 SCREENING [code = BREAST CANCER SCREENING] Future Scheduled 2023-01-16 COLONOSCOPY SCREENING [facility] Test 17:56:27 [code = COLONOSCOPY SCREENING] Future Scheduled 2023-01-16 SHINGLES VACCINES (1 [facility] Test 17:56:27 of 2) [code = SHINGLES VACCINES (1 of 2)] Future Scheduled 2023-01-16 INFLUENZA VACCINE [facility] Test 17:56:27 [code = INFLUENZA VACCINE] Future Scheduled 2022-12-19 65+ P[facility]UMOCOCCAL [facility] Test 17:19:35 VACCINE (1 - PCV) [code = 65+ PNEUMOCOCCAL VACCINE (1 - PCV)] Future Scheduled 2022-12-19 Hepatitis C screening [facility] Test 17:19:35 (procedure) [code = 970469207] Future Scheduled 2022-12-19 BREAST CANCER [facility] Test 17:19:35 SCREENING [code = BREAST CANCER SCREENING] Future Scheduled 2022-12-19 COLONOSCOPY SCREENING [facility] Test 17:19:35 [code = COLONOSCOPY SCREENING] Future Scheduled 2022-12-19 SHINGLES VACCINES (1 [facility] Test 17:19:35 of 2) [code = SHINGLES VACCINES (1 of 2)] Future Scheduled 2022-12-19 INFLUENZA VACCINE [facility] Test 17:19:35 [code = INFLUENZA VACCINE] Future Scheduled 2022-07-18 HEPATITIS B VACCINES [facility] Test 13:49:14 (1 of 3 - 3-dose series) [code = HEPATITIS B VACCINES (1 of 3 - 3-dose series)] Future Scheduled 2022-07-18 65+ PNEUMOCOCCAL [facility] Test 13:49:14 VACCINE (1 - PCV) [code = 65+ PNEUMOCOCCAL VACCINE (1 - PCV)] Future Scheduled 2022-07-18 Hepatitis C screening [facility] Test 13:49:14 (procedure) [code = 702895719] Future Scheduled 2022-07-18 BREAST CANCER [facility] Test 13:49:14 SCREENING [code = BREAST CANCER SCREENING] Future Scheduled 2022-07-18 COLONOSCOPY SCREENING [facility] Test 13:49:14 [code = COLONOSCOPY SCREENING] Future Scheduled 2022-07-18 SHINGLES VACCINES (1 [facility] Test 13:49:14 of 2) [code = SHINGLES VACCINES (1 of 2)] Future Scheduled 2022-07-18 INFLUENZA VACCINE [facility] Test 13:49:14 [code = INFLUENZA VACCINE] Encounters Start End Encounter Admission Attending Care Care Encounter Source Date/Time Date/Time Type Type Clinicians Facility Department ID 2021-11-30 Outpatient [facility] [id number] Common 10:06:04 [facility] 2022-10-17 2022-10-17 Office Shekhar Vela 1.2.840.1 [id number] Methodi 15:10:00 16:20:31 Visit B. 89458.1.1 210 3.430.2.7 Hospit a .3.397268 l .8 2022-10-17 2022-10-17 Office Shekhar Vela 1.2.840.1 [id number] Methodi 15:10:00 16:20:31 [address]. [address]163.1.[address] 3.430.2.7 Hospit a .3.806200 l .8 2022-10-17 2022-10-17 Travel 1.2.840.1 1.2.007.765 [id number] Methodi 00:00:00 00:00:[address] 3.430.2.7 0.2.7.3.698 Ho spita .3.456922 084.8 l .8 2022-10-17 2022-10-17 Outpatient SHEKHAR VELA [facility] [id number] Ora 00:00:00 00:00:[address] 2022-10-17 2022-10-17 Travel 1.2.840.1 1.2.360.763 [id number] Methodi 00:00:00 00:00:[address] 3.430.2.7 0.2.7.3.698 Ho spita .3.418297 084.8 l .8 2022-09-19 2022-09-19 Ambulatory [facility] [id number] Memoria 15:30:00 15:30:00 Pre-Reg Neurology 00 l Vance Blanchard 2022-08-10 2022-08-10 Travel 1.2.840.1 1.2.869.993 [id number] Methodi 00:00:00 00:00:[address] 3.430.2.7 0.2.7.3.698 Ho spita .3.183378 084.8 l .8 2022-07-18 2022-07-18 Office Shekhar Vela 1.2.840.1 [id number] Methodi 09:00:00 11:24:45 [address] B. [address]97.1.[address] 3.430.2.7 Hospit a .3.066335 l .8 2022-07-18 2022-07-18 Travel 1.2.840.1 1.2.430.253 [id number] Methodi 00:00:00 00:00:[address] 3.430.2.7 0.2.7.3.698 Ho spita .3.737460 084.8 l .8 2022-07-06 2022-07-06 Telephone Km, 1.2.840.1 [id number] Methodi 00:00:00 00:00:00 Johanny 35240.1.1 371 s t R. 3.430.2.7 Hospit a .3.201291 l .8 2022-07-06 2022-07-06 Orders Jose, 1.2.840.1 [id number] 2099 [id number] Methodi 00:00:00 00:00:00 Only Violetta 13223.1.[address] 3.430.2.7 Hospit a .3.731850 l .8 2022-07-05 2022-07-05 Hospital Shekhar Vela 1.2.840.1 [id number] Methodi 06:02:00 23:59:00 Encounter Elliot [address]270.1.[address] 3.430.2.7 Hospit a .3.187199 l .8 2022-07-05 2022-07-05 Anesthesia Nicolle Quick 1.2.840.1 [id number] Methodi 07:13:00 11:23:00 Event Johanny Barbour 06029.1.[address] 3.430.2.7 Hospit a .3.618818 l .8 2022-07-05 2022-07-05 Surgery Shekhar Vela 1.2.840.1 [id number] Methodi 07:15:00 11:00:[address] 3.430.2.7 Hospit a .3.435732 l .8 2022-07-05 2022-07-05 Travel 1.2.840.1 1.2.358.345 [id number] [id number] Methodi 00:00:00 00:00:[address] 3.430.2.7 0.2.7.3.698 Ho spita .3.505953 084.8 l .8 2022-07-03 2022-07-03 Refthais Garcia 1.2.840.1 [id number] 2099 [id number] Methodi 00:00:00 00:00:[address] 3.430.2.7 Hospit a .3.473098 l .8 2022-07-02 2022-07-02 Telephone Asher, 1.2.840.1 [id number] [id number] Methodi 00:00:00 00:00:[address] 3.430.2.7 Hospit a .3.312070 l .8 2022-06-13 2022-06-13 Shekhar Green 1.2.840.1 [id number] Methodi 10:31:53 23:59:00 Encounter B[address]36.1.[address] 3.430.2.7 Hospit a .3.920530 l .8 2022-06-13 2022-06-13 Orders Shekhar Vela 1.2.840.1 [id number] Methodi 00:00:00 00:00:[address] Only B[address] 13485.1.[address] 3.430.2.7 Hospit a .3.415545 l .8 2022-06-08 2022-06-08 Orders Jose 1.2.840.1 [id number] 2099 [id number] Methodi 00:00:00 00:00:00 Only Violetta 39156.1.[address] 3.430.2.7 Hospit a .3.842963 l .8 2022-05-28 2022-05-28 Orders Jose 1.2.840.1 [id number] 2099 [id number] Methodi 00:00:00 00:00:00 Only Violetta 63329.1.[address] 3.430.2.7 Hospit a .3.553086 l .8 2022-05-28 2022-05-28 Prep for Jose 1.2.840.1 [id number] [id number] Methodi 00:00:00 00:00:00 Surgery Violetta 15268.1.[address] 3.430.2.7 Hospit a .3.260462 l .8 2022-05-23 2022-05-23 Office Shekhar Vela 1.2.840.1 [id number] Methodi 09:30:00 14:28:36 [address] B. [address]4573.1.[address] 3.430.2.7 Hospit a .3.506656 l .8 2022-05-23 2022-05-23 Outpatient SHEKHAR VELA [facility] [id number] Ora 00:00:00 00:00:[address] 2022-05-23 2022-05-23 Travel 1.2.840.1 1.2.103.887 [id number] [id number] Methodi 00:00:00 00:00:[address] 3.430.2.7 0.2.7.3.698 spita .3.747015 084.8 l .8 2021-01-27 2021-01-27 Outpatient [facility] [id number] Ora 00:00:00 00:00:00 [facility] [address] 2021-01-17 2021-01-17 Outpatient [facility] [id number] Ora 00:00:00 00:00:00 [facility] [address] 2020-09-12 2020-09-14 [facility] [id number] Ora 00:00:00 00:00:00 [place] [address] 2020-08-18 2020-08-20 Inpatient [facility] 023 [id number] Ora 00:00:00 00:00:00 [place] [address] 2020-08-15 2020-08-15 [facility] [id number] Ora 00:00:00 00:00:[address] [place] [address] Results Test Description Test Time Test Comments Results Result Comments Source SARS-CoV-2 (COVID-19) RNA [Presence] in Respiratory sp ecimen by 2020-08-15 21:41:50 GABBY with probe detection Test Item Value Reference Range Interpretation Comme nts SARS-CoV-2 (COVID-19) RNA [Presence] in Respiratory Not detected No t-Detected specimen by GABBY with probe detection (test code = 21896-1) SOY PERLA
[2023-08-24 09:51] LABS: Protime INR 1.09
[2023-08-24 09:52] LABS: Absolute Lymphocytes (CBC) 1.2 K/uL (0.7-4.9); Hematocrit 41.4 % (36.0-45.0); Lymphocytes % 26.9 % (15.3-44.8); MCV 84.6 fL (80-100); MPV 7.6 fL (7.6-11.3); Platelets 220 thou/uL (152-406)
[2023-08-24 10:12] LABS: Albumin 3.5 g/dL (3.4-5.0); Bilirubin Direct 0.3 mg/dL (0-0.2); Bilirubin Indirect, Calculated 0.4 mg/dL (0.2-0.8); Bilirubin Total 0.7 mg/dL (0.2-1.0); Magnesium 2.4 mg/dL (1.6-2.4); Potassium 3.8 mEq/L (3.5-5.1); Troponin High Sensitivity 4.8 pg/mL (<58.9)
[2023-08-24 10:39] LABS: Blood Morphology Comment NOT SEEN (NOT SEEN); Platelet Estimate ADEQ; Platelets, Giant RARE
[2023-08-24] MEDS ORDERED: ONDANSETRON 4 MG/2 ML VIAL ONE (10:43)
[2023-08-24] MEDS ORDERED: NA CHLORIDE 0.9% 1,000 ML ONE (10:43)
[2023-08-24] MEDS ORDERED: FAMOTIDINE 20 MG/2 ML VIAL IV ONE (10:43)
[2023-08-24 10:55] LABS: Specific Gravity 1.006 (1.005-1.030); Urine Bilirubin NEGATIVE (Negative); Urine Blood Negative (Negative); Urine Clarity Clear (Clear); Urine Color Colorless (Yellow); Urine Glucose NEGATIVE (Negative); Urine Protein NEGATIVE (Negative); Urine Urobilinogen Normal (Normal); Urine pH 6.5 (5.0-7.0)
--- NOTE | 2023-08-24 11:01 | RAD REPORT ---
EXAM DESCRIPTION: Shannan Single View08/24/2023 10:13 am CLINICAL HISTORY: Chest pain COMPARISON: June 2023 FINDINGS: The lungs appear clear of acute infiltrate. The heart is normal size IMPRESSION: No acute abnormalities displayed
--- NOTE | 2023-08-24 11:01 | RAD REPORT ---
EXAM DESCRIPTION: CT - Head C Spine Cap Aba Johnson - 08/24/2023 10:33 am CLINICAL HISTORY: Head and neck injury with chest and abdominal pain status post fall. Head and neck pain . TECHNIQUE: Computed axial tomography of the head and cervical spine was obtained Computed axial tomography of the chest, abdomen and pelvis was obtained. 100 cc Isovue-300 was given intravenously coronal and sagittal reconstruction was performed. All CT scans are performed using dose optimization technique as appropriate and may include automated exposure control or mA/KV adjustment according to patient size. COMPARISON: CT head and C-spine June 2023 CT abdomen 2020 FINDINGS: An intracranial bleed is not seen. The ventricles are normal in caliber. An extra-axial fl uid collection is not noted. Fluid within the sinuses is not seen A cervical fracture is not seen. No dislocation is seen. Postsurgical changes involve the cervical sp ine A mediastinal hematoma is not noted. A pleural effusion is not present. A lung contusion is not seen. The liver, spleen, pancreas, adrenals, kidneys and bladder do not demonstrate an acute traumatic inju ry IMPRESSION: No acute intracranial abnormality is seen A cervical fracture is not visualized. If the patient continues have symptoms to suggest intracranial /spinal cord pathology then MRI would be recommended. No acute traumatic injury involving the chest, abdomen or pelvis is seen.
--- NOTE | 2023-08-24 11:04 | ER ---
Nurse's Notes [facility] Name: Pooja Lawrence Age: 78 yrs Sex: Female : 1945 Arrival Date: 08/24/2023 Time: 09:14 Bed 19 Private MD: Diagnosis: Fall on same level, unspecified;Chest pain, unspecified;Abdominal tenderness;Contusion of abdominal wall;Unspecified injury of head, initial encounter;Strain of muscle and tendon of front wall of thorax Presentation: 08/24 09:21 Chief complaint: Patient states: midsternal chest pain since last night, feels like she iw fell and it feels sore, she thinks she may have fallen but she does not remember. Coronavirus screen: At this time, the client does not indicate any symptoms associated with coronavirus-19. Ebola Screen: Patient negative for fever greater than or equal to 101.5 degrees Fahrenheit, and additional compatible Ebola Virus Disease symptoms Patient denies exposure to infectious person. Patient denies travel to an Ebola-affected area in the 21 days before illness onset. No symptoms or risks identified at this time. Initial Sepsis Screen: Does the patient meet any 2 criteria? No. Patient's initial sepsis screen is negative. Does the patient have a suspected source of infection? No. Patient's initial sepsis screen is negative. Risk Assessment: Do you want to hurt yourself or someone else? Patient reports no desire to harm self or others. Onset of symptoms was August 23, 2023. 09:21 Method Of Arrival: Ambulatory iw 09:21 Acuity: THOMAS 3 iw Historical: - Allergies: 09:22 Ciprofloxacin (Respiratory distress); iw 09:22 Demerol (Upset stomach); iw 09:22 Morphine (Upset stomach); iw 09:22 Sulfa (Sulfonamide Antibiotics) (Respiratory distress); iw 09:22 Ultram; iw - PMHx: 09:22 Hypertension; mitral valve prolapse; scoliosis; iw - PSHx: 09:22 Appendectomy; section; left arm surgery; Tonsillectomy; iw - Immunization history:: Adult Immunizations up to date. - Social history:: Smoking status: Patient/guardian denies using tobacco, the patient reports quitting approximately 35 years ago. Screenin:18 [facility] ED Fall Risk Assessment (Adult) History of falling in the last 3 months, tm6 including since admission Yes- single mechanical fall (1 pt) Confusion or Disorientation No (0 pts). Abuse screen: Denies threats or abuse. Denies injuries from another. Nutritional screening: No deficits noted. Tuberculosis screening: No symptoms or risk factors identified. Assessment: 10:18 General: Appears in no apparent distress. comfortable, Behavior is calm, cooperative, tm6 appropriate for age. Pain: Complains of pain in chest Pain does not radiate. Pain began suddenly. Neuro: Level of Consciousness is awake, alert, obeys commands, Oriented to person, place, time, situation. Cardiovascular: Reports chest pain, Capillary refill < 3 seconds Patient's skin is warm and dry. Rhythm is sinus bradycardia Chest pain. Respiratory: Airway is patent Respiratory effort is even, unlabored, Respiratory pattern is regular, symmetrical. GI: Abdomen is flat, non-distended. : No signs and/or symptoms were reported regarding the genitourinary system. EENT: No signs and/or symptoms were reported regarding the EENT system. Derm: No signs and/or symptoms reported regarding the dermatologic system. Musculoskeletal: No signs and/or symptoms reported regarding the musculoskeletal system. Vital Signs: 09:21 BP 142 / 100; Pulse 66; Resp 16; Temp 98.2; Pulse Ox 100% on R/A; iw 09:25 Weight 48.08 kg; ld1 09:25 Height 5 ft. 4 in. ; ld1 09:25 Pain 6/10; ld1 10:21 BP 133 / 87; Pulse 56; Resp 17; Pulse Ox 99% on R/A; tm6 09:25 Pain Scale: Adult ld1 Vitals: 10:18 Cardiac Rhythm Assessment Sinus tye. tm6 ED Course: 09:17 Patient arrived in ED. rg4 09:20 Mikal Govea MD is Attending Physician. nita 09:22 Triage completed. iw 09:22 Arm band placed on. iw 09:28 Hannah Newton, JUDSON is Primary Nurse. tm6 09:40 Basic Metabolic Panel Sent. bc6 09:40 CBC with Diff Sent. bc6 09:40 LFT's Sent. bc6 09:40 Magnesium Sent. bc6 09:40 NT PRO-BNP Sent. bc6 09:40 PT-INR Sent. bc6 09:40 Troponin HS Sent. bc6 09:40 Inserted saline lock: 20 gauge in right antecubital area, using aseptic technique. bc6 Blood collected. 10:14 XRAY Chest (1 view) In Process Unspecified. EDMS 10:18 Patient has correct armband on for positive identification. Placed in gown. Bed in low tm6 position. Call light in reach. Side rails up X2. Provided Education on: need for cardiac monitoring. Client placed on continuous cardiac and pulse oximetry monitoring. NIBP monitoring applied. radiation monitor on. Door closed. Noise minimized. Warm blanket given. 10:18 No provider procedures requiring assistance completed. Patient maintains SpO2 tm6 saturation greater than 95% on room air. 10:34 CT Traumagram (Head C Spine CAP W Con) In Process Unspecified. EDMS 11:27 IV discontinued, intact, bleeding controlled, No redness/swelling at site. Pressure tm6 dressing applied. Administered Medications: 09:35 CANCELLED (Duplicate Order): aspirinchewable tablet 162 mg PO once [facility] 10:51 Drug: Famotidine IVP 20 mg IVP once; dilute with 10 mL 0.9% NaCl; give over 2 minutes tm6 Route: IVP; Site: right antecubital; Medication: 10:18 VIS not applicable for this client. tm6 Outcome: 11:04 Discharge ordered by . nita 11:27 Discharged to home ambulatory, tm6 11:27 Condition: stable 11:27 Discharge instructions given to patient, Instructed on discharge instructions, follow up and referral plans. medication usage, Demonstrated understanding of instructions, follow-up care, medications, Prescriptions given X 2, 11:27 Patient left the ED. tm6 Signatures: Dispatcher [employer] EDOK Mikal Govea MD MD cha Williams, Irene, RN Rere Monroy rg4 Catia Gil RN RN ld1 Kacy Guerra bc6 Hannah Newton RN RN tm6 Corrections: (The following items were deleted from the chart) 10:52 10:18 [facility] ED Fall Risk Assessment (Adult) History of falling in the last 3 months, tm6 including since admission No falls in past 3 months (0 pts) Confusion or Disorientation No (0 pts) tm6
--- NOTE | 2023-08-24 11:05 | EDPHYS ---
Physician Documentation [facility] Name: Pooja Lawrence Age: 78 yrs Sex: Female : 1945 Arrival Date: 08/24/2023 Time: 09:14 Bed 19 Private MD: ED Physician Mikal Govea HPI: 08/24 09:36 This 78 yrs old Female presents to ER via Ambulatory with complaints of Chest nita Pain. 09:36 The patient or guardian reports chest pain that is located primarily in the substernal nita area, anterior chest wall. Onset: yesterday. The pain does not radiate. Historical: - Allergies: 09:22 Ciprofloxacin (Respiratory distress); iw 09:22 Demerol (Upset stomach); iw 09:22 Morphine (Upset stomach); iw 09:22 Sulfa (Sulfonamide Antibiotics) (Respiratory distress); iw 09:22 Ultram; iw - PMHx: 09:22 Hypertension; mitral valve prolapse; scoliosis; iw - PSHx: 09:22 Appendectomy; section; left arm surgery; Tonsillectomy; iw - Immunization history:: Adult Immunizations up to date. - Social history:: Smoking status: Patient/guardian denies using tobacco, the patient reports quitting approximately 35 years ago. ROS: 09:38 Constitutional: Negative for fever, chills, and weight loss, Eyes: Negative for injury, nita pain, redness, and discharge, ENT: Negative for injury, pain, and discharge, Neck: Negative for injury, pain, and swelling, Respiratory: Negative for shortness of breath, cough, wheezing, and pleuritic chest pain, Back: Negative for injury and pain, : Negative for injury, bleeding, discharge, and swelling, MS/Extremity: Negative for injury and deformity, Skin: Negative for injury, rash, and discoloration, Neuro: Negative for headache, weakness, numbness, tingling, and seizure, Psych: Negative for depression, anxiety, suicide ideation, homicidal ideation, and hallucinations, Allergy/Immunology: Negative for hives, rash, and allergies, Endocrine: Negative for neck swelling, polydipsia, polyuria, polyphagia, and marked weight changes, 09:38 Cardiovascular: Positive for chest pain, of the chest, 09:38 Abdomen/GI: Positive for abdominal pain, of the right upper quadrant, left upper quadrant, right lower quadrant and left lower quadrant, Exam: 09:38 Constitutional: This is a well developed, well nourished patient who is awake, alert, nita and in no acute distress. Head/Face: Normocephalic, atraumatic. Eyes: Pupils equal round and reactive to light, extra-ocular motions intact. Lids and lashes normal. Conjunctiva and sclera are non-icteric and not injected. Cornea within normal limits. Periorbital areas with no swelling, redness, or edema. ENT: Nares patent. No nasal discharge, no septal abnormalities noted. Tympanic membranes are normal and external auditory canals are clear. Oropharynx with no redness, swelling, or masses, exudates, or evidence of obstruction, uvula midline. Mucous membranes moist. Neck: Trachea midline, no thyromegaly or masses palpated, and no cervical lymphadenopathy. Supple, full range of motion without nuchal rigidity, or vertebral point tenderness. No Meningismus. Cardiovascular: Regular rate and rhythm with a normal S1 and S2. No gallops, murmurs, or rubs. Normal PMI, no JVD. No pulse deficits. Respiratory: Lungs have equal breath sounds bilaterally, clear to auscultation and percussion. No rales, rhonchi or wheezes noted. No increased work of breathing, no retractions or nasal flaring. Back: No spinal tenderness. No costovertebral tenderness. Full range of motion. Female : Normal external genitalia. Skin: Warm, dry with normal turgor. Normal color with no rashes, no lesions, and no evidence of cellulitis. MS/ Extremity: Pulses equal, no cyanosis. Neurovascular intact. Full, normal range of motion. Neuro: Awake and alert, GCS 15, oriented to person, place, time, and situation. Cranial nerves II-XII grossly intact. Motor strength 5/5 in all extremities. Sensory grossly intact. Cerebellar exam normal. Normal gait. Psych: Awake, alert, with orientation to person, place and time. Behavior, mood, and affect are within normal limits. 09:38 Chest/axilla: Inspection: normal, Palpation: tenderness, that is mild, of the anterior aspect of right upper chest, anterior aspect of left upper chest, right breast and left breast, Axilla: are normal, no abscess, no cellulitis, no mass, no palpable nodes, no rash, no acute changes, Lymph nodes: lymphadenopathy is not appreciated, 09:38 ECG was reviewed by the Attending Physician. 09:38 Abdomen/GI: Inspection: abdomen appears normal, Bowel sounds: normal, Liver: no appreciated palpable abnormalities, Hernia: not appreciated, Vital Signs: 09:21 BP 142 / 100; Pulse 66; Resp 16; Temp 98.2; Pulse Ox 100% on R/A; iw 09:25 Weight 48.08 kg; ld1 09:25 Height 5 ft. 4 in. ; ld1 09:25 Pain 6/10; ld1 10:21 BP 133 / 87; Pulse 56; Resp 17; Pulse Ox 99% on R/A; tm6 09:25 Pain Scale: Adult ld1 MDM: 09:20 Patient medically screened. [facility] 08/24 09:21 Order name: Basic Metabolic Panel; Complete Time: 10:26 [facility] 08/24 09:21 Order name: CBC with Diff; Complete Time: 11:03 [facility] 08/24 09:21 Order name: LFT's; Complete Time: 10:26 [facility] 08/24 09:21 Order name: Magnesium; Complete Time: 10:26 [facility] 08/24 09:21 Order name: NT PRO-BNP; Complete Time: 10:26 [facility] 08/24 09:21 Order name: PT-INR; Complete Time: 10:23 [facility] 08/24 09:21 Order name: Troponin HS; Complete Time: 10:26 [facility] 08/24 09:21 Order name: Lipase; Complete Time: 10:26 [facility] 08/24 09:21 Order name: Urinalysis w/ reflexes 08/24 10:40 Order name: Manual Differential; Complete Time: 11:03 [facility] 08/24 09:21 Order name: XRAY Chest (1 view); Complete Time: 11:03 [facility] 08/24 09:36 Order name: CT Traumagram (Head C Spine CAP W Con); Complete Time: 11:03 [facility] 08/24 09:21 Order name: EKG; Complete Time: 09:22 [facility] 08/24 09:21 Order name: Cardiac monitoring; Complete Time: 09:44 [facility] 08/24 09:21 Order name: EKG - Nurse/Tech; Complete Time: 09:40 [facility] 08/24 09:21 Order name: IV Saline Lock; Complete Time: 09:40 [facility] 08/24 09:21 Order name: Labs collected and sent; Complete Time: :40 [facility] 08/24 09:21 Order name: O2 Per Protocol; Complete Time: [facility] 08/24 09: Order name: O2 Sat Monitoring; Complete Time: [facility] EC:38 Rate is 56 beats/min. Rhythm is regular. QRS Cunningham is Normal. GA interval is normal. QRS nita interval is normal. QT interval is normal. No Q waves. T waves are Normal. No ST changes noted. Clinical impression: Sinus bradycardia and No evidence of ischemia. Interpreted by me. Reviewed by me. Administered Medications: 09:35 CANCELLED (Duplicate Order): aspirinchewable tablet 162 mg PO once [facility] 10:51 Drug: Famotidine IVP 20 mg IVP once; dilute with 10 mL 0.9% NaCl; give over 2 minutes tm6 Route: IVP; Site: right antecubital; Disposition Summary: 08/24/23 11:04 Discharge Ordered Notes: Location: Home nita Problem: new nita Symptoms: have improved nita Condition: Stable nita Diagnosis - Fall on same level, unspecified nita - Chest pain, unspecified nita - Abdominal tenderness nita - Contusion of abdominal wall nita - Unspecified injury of head, initial encounter nita - Strain of muscle and tendon of front wall of thorax nita Followup: nita - With: Private Physician - When: 2 - 3 days - Reason: Recheck today's complaints, Continuance of care, Re-evaluation by your physician Discharge Instructions: - Discharge Summary Sheet nita - Abdominal Pain, Adult nita - Nonspecific Chest Pain, Adult nita - Chest Wall Pain nita - Head Injury, Adult nita - How to Use an Incentive Spirometer nita - Abdominal Pain, Adult, [id number] nita - Nonspecific Chest Pain, Adult, [id number] nita - Aspirin and Your Heart [facility] Forms: - Medication Reconciliation Form [facility] - Thank You Letter [facility] - Antibiotic Education nita - Prescription Opioid Use nita - Patient Portal Instructions [facility] - Leadership Thank You Letter [facility] Prescriptions: - Pepcid 20 mg Oral Tablet - take 1 tablet ORAL route every 12 hours for 10 days; 20 tablet; Refills: 0, nita Product Selection Permitted - Motrin IB 200 mg Oral tablet - take 2 tablet ORAL route every 6 hours As needed as needed with food; 40 nita tablet; Refills: 0, Product Selection Permitted Signatures: Dispatcher [employer] EDMS Mikal Govea MD MD cha Williams, Irene, RN RN iw Catia Gil, JUDSON RN ld1 Hannah Newton RN RN tm6 Corrections: (The following items were deleted from the chart) 09:35 09:21 Aspirin PO Chewable Tablet 162 mg PO once ordered. nita moya 10:51 09:36 [id number] ordered. EDMS EDMS
[2023-08-24 11:52] VITALS: TEMP 98.2
[2023-08-24 12:02] VITALS: BP 133/87; O2SAT 99
--- NOTE | 2023-08-28 17:06 | EKG ---
Test Date: 2023-08-24 Test Time: 09:28:42 Registered Massage Therapist: RAFFY MEASUREMENT RESULTS: Intervals: Rate: 56 GA: 172 QRSD: 78 QT: 442 QTc: 426 [place]: P: 74 GA: 172 QRS: -31 T: 70 INTERPRETIVE STATEMENTS: Sinus bradycardia Left axis deviation Nonspecific ST abnormality Abnormal ECG Compared to ECG 07/01/2023 18:21:45 ST (T wave) deviation now present Sinus rhythm no longer present Electronically Signed On 08-28-23 16:55:22 OFFICE MACHINE SERVICE SUPERVISOR by Devan Johnson
== END 2023-08-24 11:27 | disposition home or self-care (01) ==
LOC: ER 09:14
DX: R07.89 Other chest pain (principal); S29.011A Strain of muscle and tendon of front wall of thorax, initial encounter; S30.1XXA Contusion of abdominal wall, initial encounter; S09.90XA Unspecified injury of head, initial encounter; R10.819 Abdominal tenderness, unspecified site; W18.30XA Fall on same level, unspecified, initial encounter; I10 Essential (primary) hypertension; Z88.1 Allergy status to other antibiotic agents; Z88.2 Allergy status to sulfonamides; Z88.5 Allergy status to narcotic agent
CPT/HCPCS: 93005; 85025; 80048; 36415; 83735; 85610; 80076; 81003; 84484; 83690; 83880; 70450; 72125; 71260; 74177; 71045; 96374; 99285; Q9967; J7030; J2405

== ENCOUNTER 2024-01-05 09:45 | Emergency (ER) | payer OTHER, MEDICARE ==
--- NOTE | 2024-01-05 10:32 | RAD REPORT ---
EXAM DESCRIPTION: CT - Head Brain Wo Cont - 01/05/2024 10:22 am CLINICAL HISTORY: TRAUMA COMPARISON: Head Brain Wo Cont dated 12/16/2018 TECHNIQUE: All CT scans are performed using dose optimization technique as appropriate and may inclu de automated exposure control or mA/KV adjustment according to patient size. FINDINGS: No intracranial hemorrhage, hydrocephalus or extra-axial fluid collection.No areas of brai n edema or evidence of midline shift. Mild chronic small vessel ischemic changes. The paranasal sinuses and mastoids are clear. The calvarium is intact. IMPRESSION: No acute intracranial abnormality.
[2024-01-05 10:35] LABS: Absolute Basophils 0.2 K/uL (0-0.5); Absolute Eosinophils 0.1 K/uL (0-0.5); Absolute Monocytes 0.5 K/uL (0.1-1.3); Absolute Neutrophil 3.5 K/uL (1.8-8.0); Basophils % 2.9 % (0-1.3); Eosinophils % 2.7 % (0-4.4); Hematocrit 42.3 % (36.0-45.0); Hemoglobin 14.3 g/dL (12.0-15.0); Lymphocytes % 19.6 % (15.3-44.8); MCH 28.8 pg (27.0-35.0); MCHC 33.9 g/dL (32.0-36.0); MCV 84.9 fL (80-100); MPV 7.8 fL (7.6-11.3); Monocytes % 9.6 % (3.3-12.3); Neutrophils % 65.2 % (41.7-73.7); Nucleated RBC Absolute Count 0.1 (0-0); Nucleated Red Blood Cells % 0.9 % (0-0); Platelets 199 thou/uL (152-406); RBC Red Blood Cell Count 4.98 M/uL (3.86-4.86); Red Cell Distribution Width 15.6 % (12.1-15.2)
[2024-01-05 10:41] LABS: PT Prothrombin Time 11.9 SECONDS (9.5-12.5); Protime INR 1.08
--- NOTE | 2024-01-05 10:53 | RAD REPORT ---
EXAM DESCRIPTION: RAD - Chest Single View - 01/05/2024 10:33 am CLINICAL HISTORY: CHEST PAIN COMPARISON: Chest Single View dated 08/24/2023; Chest Single View dated 06/22/2023; Chest Pa And Lat (2 Views) dated 10/27/2020; Chest Single View dated 07/28/2019 FINDINGS: Lines: None. Lungs: No evidence of edema or pneumonia. Pleural: No significant pleural effusions or pneumothorax. Cardiac: The heart size is within normal limits. Mediastinum: Within normal limits. Bones: No acute fractures. ACDF in the cervical spine. Other: None IMPRESSION: No acute cardiopulmonary disease.
[2024-01-05 10:54] LABS: Albumin 3.5 g/dL (3.4-5.0); Albumin/Globulin Ratio 1.1 (1.1-1.8); Anion Gap 9.3 mEq/L (5.0-15.0); Bilirubin Direct 0.2 mg/dL (0-0.2); Bilirubin Indirect, Calculated 0.4 mg/dL (0.2-0.8); Bilirubin Total 0.6 mg/dL (0.2-1.0); Globulin 3.3 g/dL (2.3-3.5); Potassium 3.3 mEq/L (3.5-5.1); Protein, Total 6.8 g/dL (6.4-8.2); Troponin High Sensitivity 4.7 pg/mL (<58.9)
--- NOTE | 2024-01-05 11:00 | ER ---
Nurse's Notes [facility] Name: Pooja Lawrence Age: 78 yrs Sex: Female : 1945 Arrival Date: 01/05/2024 Time: 09:45 Bed 6 Private MD: Diagnosis: Chest pain, unspecified;Headache Presentation: 01/04 09:54 Chief complaint: Patient states: CP, palpitations, TORRES, not feeling well for 2 weeks. ll1 Fell 1 month ago, just got worse since. Coronavirus screen: Vaccine status: Patient reports receiving the 2nd dose of the covid vaccine. Client denies travel out of the [place] in the last 14 days. At this time, the client does not indicate any symptoms associated with coronavirus-19. Ebola Screen: Patient denies travel to an Ebola-affected area in the 21 days before illness onset. Initial Sepsis Screen: Does the patient meet any 2 criteria? No. Patient's initial sepsis screen is negative. Does the patient have a suspected source of infection? No. Patient's initial sepsis screen is negative. Risk Assessment: Do you want to hurt yourself or someone else? Patient reports no desire to harm self or others. Onset of symptoms was December 31, 2023. 09:54 Method Of Arrival: Ambulatory ll1 09:54 Acuity: THOMAS 3 ll1 Triage Assessment: 10:10 General: Appears in no apparent distress. comfortable, Behavior is cooperative, bp appropriate for age, anxious. Pain: Complains of pain in chest. Cardiovascular: Rhythm is regular. Historical: - Allergies: 09:51 Ciprofloxacin (Respiratory distress); ll1 09:51 Demerol (Upset stomach); ll1 09:51 Morphine (Upset stomach); ll1 09:51 Sulfa (Sulfonamide Antibiotics) (Respiratory distress); ll1 09:51 Ultram; ll1 - PMHx: 09:51 Hypertension; mitral valve prolapse; scoliosis; ll1 - PSHx: 09:51 Appendectomy; section; left arm surgery; Tonsillectomy; ll1 - Immunization history:: Adult Immunizations up to date. - Social history:: Smoking status: Patient denies any tobacco usage or history of. Screenin:10 [facility] ED Fall Risk Assessment (Adult) History of falling in the last 3 months, bp including since admission No falls in past 3 months (0 pts) Confusion or Disorientation No (0 pts) Intoxicated or Sedated No (0 pts) Impaired Gait No (0 pts) Mobility Assist Device Used No (0 pt) Altered Elimination No (0 pt) Score/Fall Risk Level 0 - 2 = Low Risk Oriented to surroundings. Abuse screen: Denies threats or abuse. Denies injuries from another. Nutritional screening: No deficits noted. Tuberculosis screening: No symptoms or risk factors identified. Assessment: 10:10 General: SEE TRIAGE NOTE. Pain: Pain does not radiate. Pain began A MONTH AGO. bp Vital Signs: 09:54 BP 144 / 82; Pulse 109; Resp 18; Pulse Ox 99% ; Weight 49.9 kg; Height 5 ft. 5 in. ; ll1 Pain 0/10; 10:54 Pulse 92; Resp 18; Pulse Ox 100% on R/A; ld1 09:54 Body Mass Index 18.30 (49.90 kg, 165.1 cm) ll1 09:54 Pain Scale: Adult ll1 ED Course: 09:48 Patient arrived in ED. im 09:50 Dilip Briseno MD is Attending Physician. sp3 09:51 Arm band placed on. ll1 09:56 Triage completed. ll1 10:10 Patient has correct armband on for positive identification. Provided Education on: N/A. bp Client placed on continuous cardiac and pulse oximetry monitoring. NIBP monitoring applied. monitor car operator on. 10:10 Inserted saline lock: 22 gauge in right forearm, using aseptic technique. Blood bp collected. 10:14 Robi Schneider, RN is Primary Nurse. bp 10:14 Troponin HS Sent. bp 10:14 PT-INR Sent. bp 10:14 NT PRO-BNP Sent. bp 10:14 Magnesium Sent. bp 10:14 LFT's Sent. bp 10:14 CBC with Diff Sent. bp 10:14 Basic Metabolic Panel Sent. bp 10:23 CT Head Brain wo Cont In Process Unspecified. EDMS 10:35 XRAY Chest (1 view) In Process Unspecified. EDMS Administered Medications: No medications were administered Medication: 10:10 VIS not applicable for this client. bp Outcome: 11:00 Discharge ordered by . sp3 12:27 Patient left the ED. eb Signatures: Dispatcher [employer] EDMS Robi Schneider, RN RN Lorene Murphy Lynsay, RN RN ll1 Catia Gil, RN RN ld1 Dilip Briseno MD MD sp3 Romy Del Angel
--- NOTE | 2024-01-05 11:00 | EDPHYS ---
Physician Documentation [facility] Name: Pooja Lawrence Age: 78 yrs Sex: Female : 1945 Arrival Date: 01/05/2024 Time: 09:45 Bed 6 Private MD: ED Physician Dilip Briseno HPI: 01/04 10:05 This 78 yrs old Female presents to ER via Ambulatory with complaints of Chest Pain, sp3 Headache. 10:05 78-year-old female with a history of hypertension and mitral valve prolapse presents sp3 again for recurrent acute on chronic chest pain. Current episode she states is been lasting for approximately 1 month. Pain is worse when she moves around and she also states that she feels very anxious. Patient also states that on December 20 she sustained a mechanical ground-level fall where she had a new fracture for which she is seeing Dr. [facility] orthopedics here in the [place]. She says she also hit her head but she was not evaluated for that. She was not seen in the ED during that episode. She states her headaches have continued since then. She denies any neck pain and has full range of motion in her neck. Chest denies any shortness of breath, back pain, abdominal pain, nausea, vomit, diarrhea, left arm pain, jaw pain, syncope, near syncope, fever, URI symptoms, or any other signs or symptoms on ROS at this time.. Historical: - Allergies: 09:51 Ciprofloxacin (Respiratory distress); ll1 09:51 Demerol (Upset stomach); ll1 09:51 Morphine (Upset stomach); ll1 09:51 Sulfa (Sulfonamide Antibiotics) (Respiratory distress); ll1 09:51 Ultram; ll1 - PMHx: 09:51 Hypertension; mitral valve prolapse; scoliosis; ll1 - PSHx: 09:51 Appendectomy; section; left arm surgery; Tonsillectomy; ll1 - Immunization history:: Adult Immunizations up to date. - Social history:: Smoking status: Patient denies any tobacco usage or history of. ROS: 10:06 Constitutional: Negative for fever, chills, and weight loss, Eyes: Negative for injury, sp3 pain, redness, and discharge, ENT: Negative for injury, pain, and discharge, Neck: Negative for injury, pain, and swelling, Respiratory: Negative for shortness of breath, cough, wheezing, and pleuritic chest pain, Abdomen/GI: Negative for abdominal pain, nausea, vomiting, diarrhea, and constipation, Back: Negative for injury and pain, MS/Extremity: Negative for injury and deformity, Skin: Negative for injury, rash, and discoloration, Psych: Negative for depression, anxiety, suicide ideation, homicidal ideation, and hallucinations, Allergy/Immunology: Negative for hives, rash, and allergies, Endocrine: Negative for neck swelling, polydipsia, polyuria, polyphagia, and marked weight changes, Hematologic/Lymphatic: Negative for swollen nodes, abnormal bleeding, and unusual bruising, 10:06 All other systems are negative, Exam: 10:06 Constitutional: This is a well developed, well nourished patient who is awake, alert, sp3 and in no acute distress. Head/Face: Normocephalic, atraumatic. Eyes: Pupils equal round and reactive to light, extra-ocular motions intact. Lids and lashes normal. Conjunctiva and sclera are non-icteric and not injected. Cornea within normal limits. Periorbital areas with no swelling, redness, or edema. ENT: Nares patent. No nasal discharge, no septal abnormalities noted. External auditory canals are clear. Oropharynx with no redness, swelling, or masses, exudates, or evidence of obstruction, uvula midline. Mucous membranes moist. Neck: Trachea midline, no thyromegaly or masses palpated, and no cervical lymphadenopathy. Supple, full range of motion without nuchal rigidity, or vertebral point tenderness. No Meningismus. Chest/axilla: Normal chest wall appearance and motion. Nontender with no deformity. No lesions are appreciated. Cardiovascular: Regular rate and rhythm with a normal S1 and S2. No gallops, murmurs, or rubs. Normal PMI, no JVD. No pulse deficits. Respiratory: Lungs have equal breath sounds bilaterally, clear to auscultation and percussion. No rales, rhonchi or wheezes noted. No increased work of breathing, no retractions or nasal flaring. Abdomen/GI: Soft, non-tender, with normal bowel sounds. No distension or tympany. No guarding or rebound. No evidence of tenderness throughout. Back: No spinal tenderness. No costovertebral tenderness. Full range of motion. Skin: Warm, dry with normal turgor. Normal color with no rashes, no lesions, and no evidence of cellulitis. MS/ Extremity: Pulses equal, no cyanosis. Neurovascular intact. Full, normal range of motion. Neuro: Awake and alert, GCS 15, oriented to person, place, time, and situation. Cranial nerves II-XII grossly intact. Motor strength 5/5 in all extremities. Sensory grossly intact. Cerebellar exam normal. Normal gait. Psych: Awake, alert, with orientation to person, place and time. Behavior, mood, and affect are within normal limits. 10:08 ECG was reviewed by the Attending Physician. EKG demonstrates normal sinus rhythm at 83 sp3 bpm with no intervals, normal QRS, normal axis, nonspecific ST/T changes diffusely without evidence of acute ischemia. Vital Signs: 09:54 BP 144 / 82; Pulse 109; Resp 18; Pulse Ox 99% ; Weight 49.9 kg; Height 5 ft. 5 in. ; ll1 Pain 0/10; 10:54 Pulse 92; Resp 18; Pulse Ox 100% on R/A; ld1 09:54 Body Mass Index 18.30 (49.90 kg, 165.1 cm) ll1 09:54 Pain Scale: Adult ll1 MDM: 09:51 Patient medically screened. sp3 10:06 Data reviewed: vital signs, nurses notes, old medical records, lab test result(s), EKG, sp3 radiologic studies. ED course: 78-year-old female with recurrent acute on chronic chest pain. I am not highly suspicious for acute coronary syndrome, PE, TAD, or any other critical pathology. Will assess with EKG, chest x-ray and laboratory values and if negative follow-up with PCP and cardiology. Also obtain CT scan of the head to ensure no head injury from her fall. Clinically I am not suspecting intracranial hemorrhage or any other traumatic injury. Patient's heart rate initially 109 but now 83 on EKG. Anxiety may also be contributing factor.. 10:59 ED course: Full workup negative including CT head and troponin. Will safely discharge sp3 patient home at this time.. 01/04 09:51 Order name: Basic Metabolic Panel; Complete Time: 10:59 sp3 01/04 09:51 Order name: CBC with Diff; Complete Time: 10:59 sp3 01/04 09:51 Order name: LFT's; Complete Time: 10:59 sp3 01/04 09:51 Order name: Magnesium; Complete Time: 10:59 sp3 01/04 09:51 Order name: NT PRO-BNP; Complete Time: 10:59 sp3 01/04 09:51 Order name: PT-INR; Complete Time: 10:59 sp3 01/04 09:51 Order name: Troponin HS; Complete Time: 10:59 sp3 01/04 09:51 Order name: XRAY Chest (1 view); Complete Time: 10:59 sp3 01/04 10:04 Order name: CT Head Brain wo Cont; Complete Time: 10:34 sp3 01/04 09:51 Order name: Cardiac monitoring; Complete Time: 10:14 sp3 01/04 09:51 Order name: EKG - Nurse/Tech; Complete Time: 10:14 sp3 01/04 09:51 Order name: IV Saline Lock; Complete Time: 10:14 sp3 01/04 09:51 Order name: Labs collected and sent; Complete Time: 10: sp3 01/04 09:51 Order name: O2 Sat Monitoring; Complete Time: 10:04 sp3 Administered Medications: No medications were administered Disposition Summary: 01/05/24 11:00 Discharge Ordered Notes: Location: Home sp3 Condition: Stable sp3 Diagnosis - Chest pain, unspecified sp3 - Headache sp3 Followup: sp3 - With: Private Physician - When: Upon discharge from the Emergency Department - Reason: Continuance of care Discharge Instructions: - Discharge Summary Sheet sp3 - Nonspecific Chest Pain, Adult sp3 Forms: - Medication Reconciliation Form sp3 - Thank You Letter sp3 - Antibiotic Education sp3 - Prescription Opioid Use sp3 - Patient Portal Instructions sp3 - Leadership Thank You Letter sp3 Signatures: Dispatcher [employer] EDAnkur Chacko RN RN ll1 Dilip Briseno MD MD sp3 Corrections: (The following items were deleted from the chart) 09:52 09:52 Chest Single View+[email or web address] ordered. EDMS EDMS
[2024-01-05 13:17] VITALS: BP 144/82; O2SAT 100
--- NOTE | 2024-01-06 13:42 | EKG ---
Test Date: 2024-01-05 Test Time: 09:54:28 Plate Setter: BP MEASUREMENT RESULTS: Intervals: Rate: 83 LA: 150 QRSD: 80 QT: 374 QTc: 439 [place]: P: 82 LA: 150 QRS: -25 T: 63 INTERPRETIVE STATEMENTS: Normal sinus rhythm Possible Anterior infarct, age undetermined Abnormal ECG Compared to ECG 08/24/2023 09:28:42 Myocardial infarct finding now present Sinus bradycardia no longer present Left-axis deviation no longer present ST (T wave) deviation no longer present Electronically Signed On 01-06-24 13:37:02 CDT by Devan Johnson
== END 2024-01-05 12:27 | disposition home or self-care (01) ==
LOC: ER 09:45
DX: R07.9 Chest pain, unspecified (principal); R51.9 Headache, unspecified; I10 Essential (primary) hypertension; Z88.1 Allergy status to other antibiotic agents; Z88.2 Allergy status to sulfonamides
CPT/HCPCS: 36415; 70450; 71045; 80048; 80076; 83735; 83880; 84484; 85025; 85610; 93005; 99284